=== PATIENT | female | born 1945 | race Caucasian/White ===

== ENCOUNTER → 2017-04-17 | Outpatient (CLI) | payer BC ==
[~2017-04-17] MED LIST: ALBU1AER9 INH; ASPI81TA28 PO; CLBPO15 TOP; CLX/40 PO; CLX20 PO; HYZ/10015 PO; LPT10 PO; MONT1TAB3 PO; OMEG10002; PANT40TA PO; PRMVC TOP; ROPI0.5T15 PO; ROPI1TAB PO; SYMIN160 INH; TRAM-10 PO; VERA240T21 PO
--- NOTE | 2017-04-17 15:18 | MAMMOGRAPHY REPORT ---
BILATERAL DIGITAL SCREENING MAMMOGRAM WITH CAD: 04/17/2017 CLINICAL HISTORY: Routine screening. Patient has no complaints. TECHNIQUE: Bilateral CC, MLO and left XCCL views were obtained. Current study was also evaluated wit h a Computer Aided Detection (CAD) system. COMPARISON: Comparison is made to exams dated: 04/15/2016 mammogram, 04/14/2015 mammogram, 02/19/2014 zoila mogram, 02/11/2013 mammogram, 12/30/2011 mammogram, and 10/25/2010 mammogram - [facility] ter. BREAST COMPOSITION: There are scattered areas of fibroglandular density in both breasts. FINDINGS: There are a few stable benign-appearing round and punctate microcalcifications bilaterally. No suspicious mass, architectural distortion or cluster of suspicious microcalcifications is seen. IMPRESSION: ACR BI-RADS CATEGORY 1: NEGATIVE There is no mammographic evidence of malignancy. A 1 year screening mammogram is recommended. The pa tient will receive written notification of the results. Approximately 10% of breast cancers are not detected with mammography. A negative mammographic report should not delay biopsy if a clinically suggestive mass is present. Tanvi Gastelum M.D. ay/:04/17/2017 13:50:54 Manufacturing Plant Controller: Heidi WELLS(Afshin)(Michaela)(BD), [facility] letter sent: Normal 1/2 BI-RADS Code: ACR BI-RADS Category 1: Negative
== END | disposition home or self-care (01) ==
LOC: C.MAMM 11:48
PROVIDERS: ATTEND Obstetrics & Gynecology
DX: Z12.31 Encounter for screening mammogram for malignant neoplasm of breast (principal)

== ENCOUNTER → 2017-06-26 | Outpatient (CLI) | payer BC ==
[~2017-06-26] MED LIST changes: -CLX20 PO; -HYZ/10015 PO; -MONT1TAB3 PO; -OMEG10002; -ROPI0.5T15 PO
--- NOTE | 2017-06-26 17:16 | DIAGNOSTIC IMAGING REPORT ---
CERVICAL SPINE 5 VIEWS HISTORY: CERVICALGIA COMPARISON: None. FINDINGS: The cervical spine is visualized from C1 through the superior endplate of T1. There is no fracture. 1 mm of anterolisthesis of C4 and C5. Mild disc space narrowing at C5-C6 and moderate to space narrowing at C6-C7. There are small endplate osteophytes at these levels. Moderate facet osteoarthritis within the upper cervical spine and mild facet osteoarthritis within the mid to lower cervical spine. Moderate left and mild right neural foraminal narrowing from C3 through C7. Prevertebral soft tissues and the atlantodens interval are intact. IMPRESSION: 1. Degenerative disc disease within the cervical spine as described above most pronounced within the lower cervical spine. 2. Bilateral neural foraminal narrowing as described above primarily due to the facet osteoarthritis. 3. Approximate 1 mm of anterolisthesis of C4 on C5 which is likely due to long-standing degenerative change. Electronically signed by: Willie Mueller M.D. 06/26/2017 5:15 PM Dictated Date/Time: 06/26/2017 5:12 PM
--- NOTE | 2017-06-26 17:18 | DIAGNOSTIC IMAGING REPORT ---
LUMBAR SPINE 5 VIEWS HISTORY: LUMBAR PAIN COMPARISON: None. FINDINGS: There is no fracture. No subluxation. Moderate facet degenerative changes at L3-L4, L4-L5, and L5-S1. Mild disc space narrowing at L3-L4, L4-L5, and L5-S1 with small endplate osteophytes. Moderate right and mild left hip osteoarthritis. The sacrum appears intact. Cholecystectomy. IMPRESSION: No fracture or subluxation within the lumbar spine. Degenerative changes as described above. Electronically signed by: Willie Mueller M.D. 06/26/2017 5:16 PM Dictated Date/Time: 06/26/2017 5:15 PM
== END | disposition home or self-care (01) ==
LOC: C.RAD 16:12
PROVIDERS: ATTEND Family Medicine
DX: M54.2 Cervicalgia (principal)

== ENCOUNTER → 2017-06-27 | Day surgery (SDC) | payer BC ==
[2017-06-16 09:01] VITALS: Ht 162.6 cm; Wt 99.5 kg
[~2017-06-27] VITALS: Ht 162.6 cm; Wt 99.5 kg
[~2017-06-27] MED LIST changes: +ATROPINE SULFATE 0.1 MG/ML 5ML SYR IV PRN; +BUPIVACAINE 0.5 % 5 MG/1 ML MPF 30ML VIAL ONE; +CLINDAMYCIN PHOS 150 MG/ML 2 ML VIAL IV SCH; +EpHEDrine SULFATE INJ 50 MG/ML AMP IV PRN; +FENTANYL CITRATE INJ 50 MCG/1 ML 2 ML VIAL ONE; +LACTATED RINGER'S 1000ML 1,000 ML IV SCH; +LIDOCAINE HCL 1% 20 ML VIAL ONE; +LIDOCAINE HCL 2% 2 ML VIAL (20MG/ML) ONE; +MIDAZOLAM HCL 1 MG/ML 2ML VIAL ONE; +ONDANSETRON INJ 2 MG/ML 2 ML VIAL IV PRN; +OXYCODONE/ACETAMINOPHEN 5-325 TAB PO PRN; +PROPOFOL IV EMULSION 10 MG/ML 20 ML VIAL IV ONE; +SODIUM CHLORIDE 0.9% 1000ML 1,000 ML IV SCH
--- NOTE | 2017-06-27 06:47 | History & Physical Bridge - SC ---
H&P Re-Evaluation Bridge Note: I have examined the patient, reviewed the History & Physical and in the interval since the performance of the History & Physical I have noted the following changes of clinical significance: No changes noted
--- NOTE | 2017-06-27 08:03 | [facility] Post Operative Brief Note ---
Immediate Operative Summary Operative Date Jun 27, 2017. Pre-Operative Diagnosis Positive Tinel's and Phalen's Right wWrist Painful Triggering Right Long Finger Post-Operative Diagnosis Same as pre-op Procedure(s) Performed Right Carpal Tunnel Release; Right Long Finger Trigger Finger Release Surgeon Dr. Aj Lead Assembler Surgeon(s) Ba Chu PA-C Estimated Blood Loss Zero Findings ABOVE Specimens None Anesthesia LOCAL IV SEDATION Complication(s) None Disposition
[2017-06-27 08:04] VITALS: TEMP 36.5
--- NOTE | 2017-06-27 08:07 | Discharge Instructions-SurgCtr ---
Discharge Instructions Date of Service Jun 27, 2017. Visit Reason for Visit: Right Carpal Tunnel Syndrome, Right Long Trigger F Discharge Discharge Diagnosis / Problem: SAME ABOVE Discharge Goals Goal(s): Decrease discomfort, Improve function Activity Recommendations Activity Limitations: as noted below Lifting Limitations: gradually increase as tolerated Exercise/Sports Limitations: until after follow-up appointment Shower/Bathe: keep incision dry Anesthesia . Post Anesthesia Instructions: If you have had General Anesthesia or IV Sedation: * Do not drive today. * Resume driving when surgeon permits. * Do not make important decisions or sign legal documents today. * Call surgeon for: 1. Temperature elevations greater than 101 degrees F. 2. Uncontrollable pain. 3. Excessive bleeding. 4. Persistent nausea and vomiting. 5. Medication intolerance (nausea, vomiting or rash). * For nausea and vomiting use only clear liquids such as: tea, soda, bouillon until nausea subsides, then gradually increase diet as tolerated. * If you have any concerns or questions, call your surgeon's office. If physician is unavailable and it is an emergency, call 911 or go to the nearest emergency room. . Instructions / Follow-Up Instructions / Follow-Up MEDICATIONS: * Resume previous medications unless instructed otherwise by your surgeon. * Always take pain medication on a full stomach or with food to avoid upset stomach. * Do not drink alcohol or drive while taking narcotics. * Ibuprofen or Tylenol may be taken if narcotic not needed. SPECIAL CARE INSTRUCTIONS: __ None _X_ Keep extremity elevated and iced x 48 hours; apply ice 20-30 minutes 8-10 times/day. May remove at night. __ Sling __24 hrs/day __ Remove at night __ Shoulder Immobilizer __ 24 hrs/day __ Remove at night _X_ Dressing _X_ Maintain until seen in office, may shower with plastic over site __ Remove dressings in 24-48 hours and then may shower __ Cover incisions with band-aids after showering __ Do not remove steri-strips Call physician if chills or temperature rises above 102 degrees or pain unrelieved by prescribed pain medications at . . Diet Recommendations Home Diet: resume previous diet Procedures Procedures Performed: Right Carpal Tunnel Release; Right Long Finger Trigger Finger Release Pending Studies Studies pending at discharge: no Medical Emergencies . Who to Call and When: Medical Emergencies: If at any time you feel your situation is an emergency, please call 911 immediately. . Non-Emergent Contact Non-Emergency issues call your: Primary Care Provider . . "Provider Documentation" section prepared by Ba Gregory. .
--- NOTE | 2017-06-27 08:16 | OPERATIVE REPORT ---
DATE OF OPERATION: 06/27/2017 PREOPERATIVE DIAGNOSES: 1. Right carpal tunnel syndrome. 2. Right long trigger finger. POSTOPERATIVE DIAGNOSES: Same. PROCEDURES: 1. Decompression median nerve release transverse carpal ligament, right wrist. 2. Release A1 yaw, right long finger. SURGEON: Isaiah Aj MD WHIPPED TOPPING FINISHER: Ba Gregory PA-C ANESTHESIOLOGIST: Ba Barrett MD ANESTHESIA: Local with IV sedation. DRAINS: None. COMPLICATIONS: None. CONDITION: The patient tolerated the procedure well and returned to the recovery room in apparent satisfactory condition. INDICATIONS FOR SURGERY: Susy is a 72-year-old female who has had problems with carpal tunnel complaints, numbness and tingling and triggering of the right long finger. We went over treatment options and elected to go ahead and proceed with surgery. Procedure, expected outcomes and side effects were all explained in detail. DESCRIPTION OF PROCEDURE: The patient was taken to the OR at which time she was placed supine on the operating table. The right hand was prepped and draped in the usual sterile fashion for this surgery. The anticipated incision site was infiltrated with 1% Xylocaine. A forearm tourniquet was placed on the arm and tourniquet was placed up to 250 mmHg. Incision was made vertically over the transverse carpal tunnel ligament. Dissection was done down until the palmar fascia was identified and divided with a 15-blade. The transverse carpal ligament was identified and also divided with the 15-blade and upbiting scissors. A small portion of the forearm fascia was divided also. Electrocautery was used to control any areas of bleeding. The nerve was freed up from any scar tissue and adequately decompressed. The wound then was copiously irrigated. It was closed then with interrupted 4-0 nylon sutures. Marcaine without Epinephrine was placed in the skin edges. It was closed in a layered fashion. We placed a sterile dressing of Xeroform, 4 x 4, volar splint, and an Pawan bandage. We then made a transverse incision over the A1 yaw, dissected down under the right long finger and identified the yaw. We divided it with a 15 blade and tenotomy scissors. The wound was copiously irrigated, closed with 4-0 nylon suture and then Marcaine without epinephrine was placed in the skin edges and it was then incorporated into the dressing for the carpal tunnel and returned to the recovery room in apparent satisfactory condition. DISPOSITION: The patient was returned back to the recovery room in apparent satisfactory condition. I attest to the content of the Intraoperative Record and any orders documented therein. Any exception s are noted below.
--- NOTE | 2017-06-27 08:17 | Anesthesia Progress Nt - [facility] ---
Anesthesia Post Op Note Date & Time Jun 27, 2017 at 08:17 Vital Signs Pain Intensity: 0 Vital Signs Past 12 Hours Date Time Temp Pulse Resp B/P (MAP) Pulse Ox O2 Delivery O2 Flow Rate FiO2 06/27/17 08:04 36.5 64 16 163/82 (109) 97 Room Air 06/27/17 06:30 36.4 67 18 171/94 (119) 94 Room Air Notes Mental Status: alert / awake / arousable, participated in evaluation Pt Amnestic to Procedure: Yes Nausea / Vomiting: adequately controlled Pain: adequately controlled Airway Patency, RR, SpO2: stable & adequate BP & HR: stable & adequate Hydration State: stable & adequate Anesthetic Complications: no major complications apparent
[2017-06-27 08:32] VITALS: BP 155/71; PULSE 57; O2SAT 96
== END | disposition home or self-care (01) ==
LOC: X.SURG 06:24
PROVIDERS: ATTEND Orthopaedic Surgery
DX: G56.01 Carpal tunnel syndrome, right upper limb (principal); M65.331 Trigger finger, right middle finger; K21.9 Gastro-esophageal reflux disease without esophagitis; E78.00 Pure hypercholesterolemia, unspecified; E66.9 Obesity, unspecified; M19.90 Unspecified osteoarthritis, unspecified site; I10 Essential (primary) hypertension; J45.909 Unspecified asthma, uncomplicated; Z98.49 Cataract extraction status, unspecified eye; Z90.49 Acquired absence of other specified parts of digestive tract

== ENCOUNTER 2019-08-01 09:00 | Inpatient (IN) ==
--- NOTE | 2019-07-24 12:53 | History & Physical Report ---
Date of Service July 24, 2019 Assessment & Plan (1) Primary localized osteoarthrosis of right hip: DIAGNOSES: Right hip osteoarthritis. PROCEDURE: Right total hip arthroplasty. PLAN: The patient is scheduled to undergo this procedure at the [facility] as an inpatient on 08/01/2019. Risks and complications of the procedure such as infection, bleeding, pain, scarring, nerve and blood vessel damage, weakness, wound problems, stiffness, incomplete relief of symptoms, hardware failure, hardware loosening, wear, fracture, tendon or ligament injury, dislocation, leg length inequality, blood clots, embolism, heart attack, stroke and were explained to patient by Dr. Hollingsworth at her visit on July 19. Informed consent to perform the procedure was obtained at that time. We will also need to obtain a preoperative EKG, CBC with differential, complete metabolic panel, PT, INR, blood type and screen, urinalysis, urine culture, hemoglobin A1c and a nasal culture for MRSA along with medical clearance from the patient's primary care provider, Dr. Heidi Delacruz. The patient states she will obtain this necessary testing on July 26, prior to her appointment with anesthesia for preop medical clearance. The patient will be scheduled for her postoperative followup with myself on August 14 at 9:30 a.m. At that appointment, I advised her that we would provide her with an order for outpatient physical therapy with rehab protocol. In the meantime, she will do 2 weeks of in-home therapy after discussing with case management postoperatively. She states she will purchase a walker as well as a hip kit prior to the procedure. She states she also plans on purchasing a shower seat. I provided the patient with information about antibiotic use prior to dental procedures after joint replacement therapy. I also provided her with opportunities to go to the lectures provided by [facility] in regards to joint replacement therapy. We discussed discharge planning, we have given her a packet. She states she does not need a handicap placard because they already have one for her vehicle. I advised her that she will be discharged with medications for pain control and inflammation relief and that we will increase her daily aspirin to twice daily for 30 days postoperatively for prevention of blood clots. The patient and her verbalized understanding of all information provided during today's visit, thanked us for the care they received and states if they have questions or concerns that should arise prior to the procedure date they will contact the clinic accordingly. History of Present Illness Chief Complaint: CHIEF COMPLAINT: Right hip pain. Primary Care Provider: Heidi Delacruz MD HISTORY OF PRESENT ILLNESS: This 74-year-old female presents to the clinic today for preoperative history and physical. The patient complains of a 1+ year history of severe right hip pain with limited range of motion. The patient states she has been trying to lose weight, but has been unable to do so due to limitations presented by the pain that she experiences. The patient has been using hydrocodone for breakthrough pain that is provided by her PCP. She recently returned from a trip to [place] and states that she had great difficulty ambulating during her time and felt that the pain was debilitating in nature, requiring her to use a wheelchair during most of her visit. The patient is recommending to undergo a right total hip arthroplasty at our soonest availability. PAST SURGICAL HISTORY: Right carpal tunnel release, shave biopsy and cauterization of skin, colonoscopy, bronchial brushing sample, bronchial wash and transbronchial lung biopsy, cataract surgery, cholecystectomy, fistulectomy of the rectum, tummy tuck, and tubal ligation. PAST MEDICAL HISTORY: Asthma, hypertension, benign neoplasm of the colon, benign neoplasm of the thyroid, bilateral leg weakness, bradycardia, cervicalgia, depression, diverticulitis, gastroesophageal reflux, hiatal hernia, herpes labialis, history of basal cell cancer, history of squamous cell carcinoma, impaired fasting glucose, insomnia, lichen sclerosus, hyperlipidemia, recurrent urinary tract infection, restless leg syndrome, tubular adenoma, urinary incontinence and obesity. FAMILY HISTORY: Positive for colon cancer, drug dependence, heart attack, heart failure, hypertension and stroke. SOCIAL HISTORY: The patient states she consumes 2 alcoholic beverages per day, but denies tobacco or illicit drug use. ALLERGIES: THE PATIENT HAS MEDICATION ALLERGIES TO PENICILLIN, PROVENTIL, SULFA DRUGS, AND ZESTRIL. CURRENT MEDICATIONS: Acetaminophen/hydrocodone 325 mg/5 mg oral tablet 1 tab every 12 hours as needed for pain, low-dose aspirin 81 mg daily, atorvastatin 10 mg oral tablet daily, citalopram 40 mg oral tablet 1 tab daily, clobetasol topical 0.05% ointment 2 times weekly, clonazepam 0.5 mg oral tablet 1 tablet at bedtime, cranberry oral capsule, unknown dosage daily, pantoprazole 40 mg oral delayed release tablet 1 tab twice daily, Premarin vaginal 0.625 mg per gram cream with applicator, 1 application 1-3 times per week, ropinirole 1 mg oral tablet 1 tablet each morning and each night, verapamil 180 mg/12 hour oral tablet extended release 1 tab every 12 hours. T Allergies Allergy/AdvReac Type Severity Reaction Status Date / Time Penicillins Allergy Intermediate ITCHY;LIPS Verified 05/17/19 15:38 TINGLE Sulfa (Sulfonamide Allergy Intermediate ITCHY; Verified 05/17/19 15:38 Antibiotics) LIPS TINGLE Home Medications Home Medications Medication Instructions Recorded Confirmed Type aspirin 81 mg PO DAILY 03/07/19 05/17/19 History atorvastatin 10 mg PO DAILY 03/07/19 05/17/19 History citalopram 40 mg PO DAILY 03/07/19 05/17/19 History cranberry 500 mg PO DAILY 03/07/19 05/17/19 History ropinirole 1 mg PO BID 03/07/19 05/17/19 History tramadol 50 mg PO Q8 PRN 03/07/19 05/17/19 History verapamil 180 mg PO BID 03/07/19 05/17/19 History clobetasol 0.05 % topical ointment See Rx Instructions TOP .COMPLEX 05/13/19 05/13/19 Rx #60 gm conjugated estrogens 0.625 mg/gram 0.625 mg PV .COMPLEX #30 gm 05/13/19 05/13/19 Rx vaginal cream ferrous sulfate PO DAILY 05/17/19 05/17/19 History Past Med/Surg History Medical History Benign colonic polyp Depression Gastroesophageal reflux disease without esophagitis Hypercholesterolemia Hypertension Intrinsic asthma Lichen sclerosus et atrophicus Nontoxic multinodular goiter Postmenopausal atrophic vaginitis Restless legs syndrome Stress incontinence in female Arthritis GERD (gastroesophageal reflux disease) Immunoglobulin deficiency Menopause Surgical History H/O abdominoplasty History of cataract surgery Hx of cholecystectomy Hx of hemorrhoidectomy Hx of tubal ligation Family History Mother Myocardial infarction Aunt Breast cancer Maternal Father Colorectal cancer Brother Colorectal cancer Social History Feels Safe at Home: Yes Smoking Status: Former smoker Tobacco Type: cigarettes ; Age Started Using Tobacco: 18 ; Age Quit Using Tobacco: 22 ; packs per day: 1 ; Review of Systems All systems reviewed & are unremarkable except as noted in HPI & below Physical Exam Physical Exam: PHYSICAL EXAMINATION: Skin: The patient's skin is normal in appearance. No open skin lesions or discharge. Eyes: Pupils are equal and reactive to light and accommodating. Extraocular movements are intact. Throat: Posterior pharynx is clear with absence of edema, erythema or exudate. Ca rdiovascular exam: The patient has a regular rate and rhythm with no murmurs or gallops appreciated. Lungs: Auscultation of lung law reveals clear breath sounds throughout, no wheezing, rales or rhonchi. Abdomen is obese, nondistended, nontender with normoactive bowel sounds. Extremities: Right hip: The patient has a positive log roll test, positive Stinchfield test, positive straight leg raise test. She is unable to perform AGUSTÍN maneuver due to pain she experiences in her groin and posterior hip. She has tenderness to palpation of the anterior groin and posterior hip. There is a palpable crepitation with range of motion. She experiences referred pain to the groin with passive abduction and adduction as well as with passive light internal and external rotation of the hip. Flexion is limited to 90 degrees. The patient is neurovascularly intact in the right lower extremity. Neurological exam: Cranial nerves 2-12 are intact. No motor or sensory deficit. Psychological/ general exam: The patient is alert and oriented x3 with proper grooming and hygiene. Code Status & VTE Plan VTE Prophylaxis Plan VTE Prophylaxis will be ordered: Yes
--- NOTE | 2019-07-25 16:28 | PAT Medication Instructions ---
Medication Instructions Date of Service July 25, 2019 Home Medications Medication Instructions Recorded clobetasol 0.05 % topical ointment See Rx Instructions TOP .COMPLEX 05/13/19 #60 gm conjugated estrogens 0.625 mg/gram 0.625 mg PV .COMPLEX #30 gm 05/13/19 vaginal cream aspirin 81 mg PO QPM atorvastatin 10 mg PO QPM citalopram 40 mg PO QAM cranberry 500 mg PO QAM verapamil 180 mg PO BID clobetasol 0.05 % topical ointment See Rx Instructions TOP .COMPLEX conjugated estrogens 0.625 mg/gram vaginal cream 0.625 mg PV .COMPLEX ferrous sulfate 325 mg PO QAM pantoprazole 40 mg PO QAM ropinirole 1 mg PO 1500 ropinirole 1 mg PO HS ASK your prescriber and surgeon conjugated estrogens 0.625 mg/gram vaginal cream 0.625 mg PV .COMPLEX STOP taking 2 weeks before surgery (or as soon as possible if surgery is within 2 weeks) cranberry 500 mg PO QAM STOP taking 24 hours before surgery clobetasol 0.05 % topical ointment See Rx Instructions TOP .COMPLEX ropinirole 1 mg PO 1500 ropinirole 1 mg PO HS DO NOT take the morning of surgery ferrous sulfate 325 mg PO QAM Take morning of surgery With a small sip of water, OTHERWISE NOTHING TO EAT OR DRINK AFTER MIDNIGHT: citalopram 40 mg PO QAM verapamil 180 mg PO BID pantoprazole 40 mg PO QAM Take evening before surgery aspirin 81 mg PO QPM atorvastatin 10 mg PO QPM verapamil 180 mg PO BID Other Notes If you have any questions please call us at [phone] or [phone] or [phone] or [phone]
--- NOTE | 2019-07-26 08:38 | Anesthesiology Consultation ---
Date of Service July 26, 2019 Assessment & Plan (1) Encounter for pre-operative examination: - Awaiting review preop testing (labs, EKG). - Awaiting surgeon-ordered PCP preop evaluation (Dr. Heidi Beauchamp). Chart Review Chart Review: Patient seen in Pre Admission Testing Teaching & Discussion Pre-Anesthesia Teaching/Discussion Notes: Instructed NPO after midnight before surgery,except medications with 15 cc of water. Medication instructions provided according to the PAT guidelines. History Surgery Operation Date: 08/01/19 11:55 Proposed Procedures p Right Total Hip Arthroplasty - Isaiah Hollingsworth MD Height/Weight Height: 5 ft 4 in Weight: 89.7 kg Allergies Allergy/AdvReac Type Severity Reaction Status Date / Time Penicillins Allergy Intermediate ITCHY;LIPS Verified 07/25/19 07:06 TINGLE Sulfa (Sulfonamide Allergy Intermediate ITCHY; Verified 07/25/19 07:06 Antibiotics) LIPS TINGLE Medications Home Medications Medication Instructions Recorded Confirmed Last Taken aspirin 81 mg PO QPM 03/07/19 07/25/19 Unknown atorvastatin 10 mg PO QPM 03/07/19 07/25/19 Unknown citalopram 40 mg PO QAM 03/07/19 07/25/19 Unknown cranberry 500 mg PO QAM 03/07/19 07/25/19 Unknown verapamil 180 mg PO BID 03/07/19 07/25/19 Unknown clobetasol 0.05 % topical ointment See Rx Instructions TOP .COMPLEX 05/13/19 07/25/19 Unknown #60 gm conjugated estrogens 0.625 mg/gram 0.625 mg PV .COMPLEX #30 gm 05/13/19 07/25/19 Unknown vaginal cream ferrous sulfate 325 mg PO QAM 05/17/19 07/25/19 Unknown pantoprazole 40 mg PO QAM 07/25/19 07/25/19 Unknown ropinirole 1 mg PO 1500 07/25/19 07/25/19 Unknown ropinirole 1 mg PO HS 07/25/19 07/25/19 Unknown Past Medical History Medical History Depression Hypercholesterolemia Hypertension Intrinsic asthma stable; no recent issues Restless legs syndrome Stress incontinence in female Arthritis GERD (gastroesophageal reflux disease) controlled Obesity Thyroid nodule "benign" Exercise / Class Metabolic Activity III < 4 Walking/Shop/Light housework (uses cane PRN) Past Family History Family History Mother Myocardial infarction Aunt Breast cancer Maternal Father Colorectal cancer Brother Colorectal cancer Sister Family history of diabetes mellitus Past Surgical History Surgical History H/O abdominoplasty History of bronchoscopy with brushings d/t chronic cough (r/t aman inhibitor treatment) History of carpal tunnel release right History of cataract surgery bilateral History of colonoscopy History of esophagogastroduodenoscopy (EGD) Hx of cholecystectomy Hx of hemorrhoidectomy Hx of tubal ligation S/P thyroid biopsy Past Anesthesia History No Hx of Anesthesia Complications and No Family Hx of Anesthesia Complications History of PONV No Hx of PONV and No Hx of Motion Sickness Social History Smoking Status: Former smoker tobacco type: cigarettes Do You Dip or Chew Tobacco: No Smoking End Date: Quit 50+ years Hx Alcohol Use: Yes Alcohol type: beer, wine and hard liquor alcohol intake frequency: 0-2 drinks per day (2 drinks/day (beer/whiskey)) Hx Substance Use: No substance use type: does not use Review of Systems Reflux controlled. Patient denies chest pain, shortness of breath, cough, wheezing, palpitations. Physical Exam Vital Signs VITALS BP 154/80 P 53 TEMP 97.6 SP02 96%RA RESP 18 PHYSICAL Full neck and c-spine range of motion. Full TMJ range of motion. TMD 3.5 finger breaths Mallampati Score 2 Dentition: intact Lungs: clear throughout to auscultation Cardiac: regular rate and rhythm, no murmurs noted Spine: normal Carotid arteries: negative bruit Extremities: no edema Testing Chest X-Ray Date: 10/02/18 Cardiac silhouette is enlarged, unchanged. Calcification of the thoracic aortic arch. No pneumothorax, pleural effusion or overt pulmonary edema. Eventration of the right hemidiaphragm is unchanged. No acute process. Cervical Spine Date: 03/07/19 Mild to moderate degenerative changes within the cervical spine, unchanged. Stable prominence of the prevertebral soft tissues within the upper cervical spine. No fractures.
[2019-07-26 09:57] LABS: Basophils # (auto) 0.02 K/uL (0-0.2); Basophils % (auto) 0.4 %; Eosinophils # (auto) 0.11 K/uL (0-0.5); Eosinophils % (auto) 2.3 %; Hematocrit (blood only) 44.7 % (37-47); Hemoglobin 14.3 g/dL (12.0-16.0); Immature Granulocytes # (auto) 0.02 K/uL (0.00-0.02); Immature Granulocytes % (auto) 0.4 %; Lymphocytes # (auto) 1.21 K/uL (1.2-3.4); Lymphocytes % (auto) 25.7 %; Mean Platelet Volume 9.9 fL (7.4-10.4); Monocytes # (auto) 0.61 K/uL (0.11-0.59); Neutrophils # (auto) 2.74 K/uL (1.4-6.5); Neutrophils % (auto) 58.2 %; Platelet Count 258 K/uL (130-400); RDW Coefficient of Variation 13.6 % (11.5-14.5); RDW Standard Deviation 48.3 fL (36.4-46.3); Red Blood Count 4.61 M/uL (4.2-5.4); White Blood Count 4.71 K/uL (4.8-10.8)
[2019-07-26 10:00] LABS: Appearance Urine Slightly Cloudy (Clear); Blood Urine Negative (Negative); Color Urine Yellow; Glucose Urine UA Negative (Negative); Ketones Urine 1+ (Negative); Leukocyte Esterase Urine Negative (Negative); Nitrite Urine Negative (Negative); Protein Urine Negative (Negative); Specific Gravity Urine 1.025 (1.000-1.030); Urobilinogen Urine Negative (Negative); pH Urine 5.5 (4.5-7.5)
[2019-07-26 10:01] LABS: Albumin Level 3.5 gm/dl (3.4-5.0); BUN Creatinine Ratio 18.3 (10-20); Calcium 9.8 mg/dl (8.5-10.1); Creatinine Clr Calc Pharmacy 75.5 ml/min; Est GFR (African American) 95.4; Est GFR (Non-African American) 82.3; Potassium 4.3 mmol/L (3.5-5.1)
[2019-07-26 10:04] LABS: Bilirubin,Total 0.5 mg/dl (0.2-1); Globulin 3.4 gm/dl (2.5-4.0); Total Protein 6.9 gm/dl (6.4-8.2)
[2019-07-26 10:07] LABS: Partial Thromboplastin Time 26.7 Seconds (21.0-31.0); Prothrombin Time 10.4 Seconds (9.0-12.0)
[2019-07-26 10:08] LABS: Bilirubin Urine Negative (Negative); Ictotest Urine Negative (Negative)
[2019-07-26 10:32] LABS: Estimated Average Glucose 111 mg/dl; Hemoglobin A1C 5.5 % (4.5-5.6)
[~2019-08-01 09:00] MED LIST changes: +ACETAMINOPHEN 500 MG TAB PO SCH; -ALBU1AER9 INH; -ASPI81TA28 PO; -ATROPINE SULFATE 0.1 MG/ML 5ML SYR IV PRN; -BUPIVACAINE 0.5 % 5 MG/1 ML MPF 30ML VIAL ONE; +BUPIVACAINE 0.5 % 5 MG/1 ML PF 10ML VIAL ONE; +CEFAZOLIN 2000MG 2,000 MG/15 ML SYR IV SCH; -CLBPO15 TOP; -CLINDAMYCIN PHOS 150 MG/ML 2 ML VIAL IV SCH; -CLX/40 PO; -EpHEDrine SULFATE INJ 50 MG/ML AMP IV PRN; +FAMOTIDINE 20 MG TAB PO SCH; -FENTANYL CITRATE INJ 50 MCG/1 ML 2 ML VIAL ONE; -LACTATED RINGER'S 1000ML 1,000 ML IV SCH; -LIDOCAINE HCL 1% 20 ML VIAL ONE; -LIDOCAINE HCL 2% 2 ML VIAL (20MG/ML) ONE; -LPT10 PO; +LR 500ML BOLUS, THEN 15ML/HR IV SCH; +LR 60ML/HR IV SCH; +METOCLOPRAMIDE HCL 10 MG TABLET PO SCH; -MIDAZOLAM HCL 1 MG/ML 2ML VIAL ONE; -ONDANSETRON INJ 2 MG/ML 2 ML VIAL IV PRN; -OXYCODONE/ACETAMINOPHEN 5-325 TAB PO PRN; -PANT40TA PO; -PRMVC TOP; -PROPOFOL IV EMULSION 10 MG/ML 20 ML VIAL IV ONE; -ROPI1TAB PO; +SCOPOLAMINE 1.5 MG TDSY TD SCH; -SODIUM CHLORIDE 0.9% 1000ML 1,000 ML IV SCH; -SYMIN160 INH; -TRAM-10 PO; +TRAMADOL HCL 50 MG TABLET PO SCH; +TRANEXAMIC ACID 1,000 MG **IV Intra-op IV SCH; +TRANEXAMIC ACID 1,000 MG **IV Pre-op IV SCH; -VERA240T21 PO; +dexAMETHasone 4 MG TAB PO SCH
[2019-08-01] MEDS ORDERED: fentaNYL citrate 100 MCG/2 ML VIAL ONE (10:20)
[2019-08-01] MEDS ORDERED: MIDAZOLAM HCL 1 MG/ML 2ML VIAL ONE (10:20)
[2019-08-01] MEDS ORDERED: ORTHO JOINT ANESTHETIC ONE (11:09)
--- NOTE | 2019-08-01 11:09 | History & Physical Bridge Note ---
Date of Service August 01, 2019 History & Physical Bridge Note I have examined the patient, reviewed the History & Physical and in the interval since the performance of the History & Physical I have noted the following changes of clinical significance: no changes noted
[2019-08-01] MEDS ORDERED: PROPOFOL IV EMULSION 10 MG/ML 20 ML VIAL IV ONE ×2 (12:01→12:54)
[2019-08-01] MEDS ORDERED: LIDOCAINE HCL 2% 2 ML VIAL/AMP(20MG/ML) INFIL ONE (12:01)
[2019-08-01] MEDS ORDERED: ePHEDrine sulfate 50 MG/ML SYR ONE (12:01)
[2019-08-01] MEDS ORDERED: ONDANSETRON INJ 2 MG/ML 2 ML VIAL ONE (12:01)
[2019-08-01] MEDS: ROPIVACAINE 0.5% HCL/PF 150 MG, BUPIVACAINE 0.5% MPF 30 ML, EPINEPHrine 0.15 MG, Ketoro... INFIL SCH (12:44)
--- NOTE | 2019-08-01 13:11 | Post Operative Brief Note ---
Immediate Post Op Note v1 Date of Surgery August 01, 2019 Pre & Post Diagnosis Operation Date: 08/01/19 11:35 Pre-Op Diagnosis: Right Hip Osteoarthritis Post-Op Diagnosis: Right Hip Osteoarthritis I identified the patient and participated in the time-out.: Yes Procedure Operation Date: 08/01/19 11:35 Actual Procedures p Right Total Hip Arthroplasty, Uncemented(Right) - Isaiah Hollingsworth MD Surgeon Isaiah Hollingsworth MD Concrete Form Setter And Finisher ANAND Franks PA-C Estimated Blood Loss 100 Findings Consistent with Post-Op Diagnosis Fluids 700 Anesthesia Type Spinal MAC Complications none Disposition Accompanied Patient To Recovery: No Disposition: Recovery Room
--- NOTE | 2019-08-01 13:30 | Operative Report ---
Post Operative Report Pre & Post Diagnosis Operation Date: 08/01/19 11:35 Pre-Op Diagnosis: Right Hip Osteoarthritis Post-Op Diagnosis: Right Hip Osteoarthritis I identified the patient and participated in the time-out.: Yes Procedure Operation Date: 08/01/19 11:35 Actual Procedures p Right Total Hip Arthroplasty, Uncemented(Right) - Isaiah Hollingsworth MD Surgeon Isaiah Hollingsworth MD Rn Visiting ANAND Franks PA-C Estimated Blood Loss 100 Findings Consistent with Post-Op Diagnosis Specimens Right femoral head Complications none Disposition Accompanied Patient To Recovery: Yes Disposition: Recovery Room Description of Procedure I was present during the entire case assisting with wound closure and dressing application. Please see Dr. Hollingsworth procedure note for specifics of the case. I attest to the content of the Intraoperative Record and any orders documented therein. Any exceptions are noted below.
[2019-08-01] MEDS ORDERED: ALUMINUM/MAGNESIUM SUSP 30 ML UDC PO PRN (13:38)
[2019-08-01] MEDS ORDERED: HYDROmorphone INJ 0.5 MG/0.5 ML SYR IV PRN (13:38)
[2019-08-01] MEDS ORDERED: OXYCODONE HCL IR 5 MG TAB (IMMEDIATE RELEASE) PO PRN (13:38)
[2019-08-01] MEDS ORDERED: bisacodyL 10 MG SUPP PR PRN (13:38)
[2019-08-01] MEDS ORDERED: DiphenhydrAMINE HCL 50 MG/ML VIAL IV PRN (13:38)
[2019-08-01] MEDS ORDERED: TRAMADOL HCL 50 MG TABLET PO PRN (13:38)
[2019-08-01] MEDS ORDERED: NALOXONE HCL 0.4 MG/1 ML VIAL/CARP IV PRN (13:38)
[2019-08-01] MEDS ORDERED: METOCLOPRAMIDE HCL INJ 5 MG/ML 2 ML VIAL IV PRN (13:38)
[2019-08-01] MEDS ORDERED: MAGNESIUM HYDROXIDE SUSP 30 ML UDC PO PRN (13:38)
[2019-08-01] MEDS ORDERED: ONDANSETRON INJ 2 MG/ML 2 ML VIAL IV PRN (13:38)
--- NOTE | 2019-08-01 13:40 | Operative Report ---
DATE OF OPERATION: 08/01/2019 PREOPERATIVE DIAGNOSES: Right hip osteoarthritis. POSTOPERATIVE DIAGNOSES: Right hip osteoarthritis. OPERATION PERFORMED: Right total hip arthroplasty. SURGEON: Isaiah Hollingsworth MD. MAGAZINE DESIGNER: Ale Franks PA-C. ESTIMATED BLOOD LOSS: 100 mL. INTRAVENOUS FLUIDS: 700 mL of crystalloid. SPECIMENS: Femoral head. COMPLICATIONS: None. IMPLANTS: 1. DePuy [place] Gription acetabular shell sector cup 50 mm outer diameter. 2. 6.5 x 40 mm cancellous bone screw. 3. [place] Ultrex polyethylene liner neutral with 50 mm outer diameter and 32 mm inner diameter. 4. DePuy [place] size 4 high-offset femoral stem. 5. DePuy metal femoral head 32 mm diameter with a +1.5 offset. INDICATIONS: Ms. Gardner is a 74-year-old female with right hip osteoarthritis that has been refractory to conservative management. She has lost weight to get her BMI below 35. X-rays show complete joint space loss, subchondral sclerosis and cyst formation. I had a long discussion with her about the risks and benefits of surgery, alternatives to surgery and expected outcomes. After reviewing all these, she elected to proceed with surgery. All questions were answered. Informed consent was signed. OPERATIVE FINDINGS: The patient had degenerative osteoarthritis findings of the hip. A metal on polyethylene bearing total hip arthroplasty was performed through a posterior approach. DESCRIPTION OF THE OPERATION: The patient was identified in the preoperative holding area where her surgical site was marked. She was given a spinal anesthetic and brought back to the main operating room where she was placed on the operating room table and moved in the lateral decubitus position. Axillary roll was placed. Stulberg positioner was situated. All bony prominences were padded. Perioperative antibiotics and tranexamic acid were administered. She was prepped and draped in the normal sterile fashion. Prior to incision, a multidisciplinary timeout was called. All in the room were in agreement. I began by making a 16 cm incision for a posterior approach to the hip. The subcutaneous tissues were incised in line with the incision. Fascia was incised in line with the incision. A Charnley bow was placed. Trochanteric bursa was excised. Piriformis and short external rotators were dissected off the posterior aspect of the hip capsule. A box cut was made in the hip capsule. The femoral head was dislocated. The neck cut was made at 6 mm above the lesser trochanter, which was our preoperative template. We then exposed the acetabulum. The labrum was sharply excised. The contents of the cotyloid fossa were removed with a large black-handled curette. We then began reaming with a size 42 reamer. We then sequentially reamed her up to a size 50 cup. This gave us excellent cancellous bleeding bone circumferentially. We then irrigated out the acetabulum and opened up the size 50 acetabular shell sector cup. This was impacted into position with 45 degrees of lateral opening and 25 degrees of anteversion. A single cancellous bone screw was placed up into the ilium with an excellent bite. The polyethylene liner for a 32 mm femoral head was then impacted into the acetabular shell. The locking mechanism was checked to ensure that it had engaged, which it had. Next, the femoral neck was exposed. Lateral neck was removed with a box osteotome. The intramedullary guide was used followed by the lateralizing reamer. We then reamed her up to a size 3, which was our preoperative template. We then broached her up to a size 3. However, this had poor torsional stability. I therefore elected to upsize her to a size 4. We re-reamed the intramedullary canal and got her up to a size 4 without difficulty. We then removed lateral bone with a rat tail. The 4 broach was used and impacted down into position. Excellent torsional stability was achieved. We then began trialing. We used a high offset neck, which was our preoperative template with the +1.5 head. This was easily reduced. Her leg lengths were symmetric. She had a stable shuck test. She was stable in the extension and external rotation position. She was stable in the sleeper position and at 90 degrees of hip flexion, she can be internally rotated 50 degrees before leaving out of the cup. I was very happy with the stability exam. Therefore, the femoral trial was removed. The femoral canal was irrigated and dried. The real size 4 high offset stem was opened up and was impacted down into position. It sat at the same level of the broach. Therefore, we opened up a 32 mm diameter femoral head with a +1 offset. This was impacted onto the trunnion, which had been cleaned and dried. The wound was then irrigated out with copious amounts of dilute Betadine solution. This was then irrigated out. The periarticular injection cocktail was placed. We then repaired the piriformis and short external rotators as well as the posterior hip capsule through bone tunnels in the posterior aspect of the greater trochanter. This was with #2 Vicryl. The fascia was run with a looped #1 PDS. Subcutaneous fat was closed with #1 PDS in running fashion. Deep dermis was closed with 2-0 Vicryl. The skin was closed with a ZipLine. Sterile dressings were applied. The patient was carefully rolled supine, placed in an abduction pillow and transferred to the recovery room in stable condition. Of note, we did check her leg lengths when she was in supine and they were symmetric. POSTOPERATIVE COURSE: The patient will be admitted overnight to the hospital for pain control and monitoring. She will be weightbearing as tolerated with posterior hip precautions. She will be on aspirin for DVT prophylaxis. I attest to the content of the Intraoperative Record and any orders documented therein. Any exceptions are noted below. PARKER
[2019-08-01] MEDS ORDERED: PREMARIN VAG CRM 14 APPLN/30 GM TUBE PV SCH (13:45)
[2019-08-01] MEDS ORDERED: SODIUM CHLORIDE 0.9% 1000ML 1,000 ML IV SCH (13:45)
--- NOTE | 2019-08-01 13:46 | Anesthesiology Progress Note ---
Date of Service August 01, 2019 Anesthesia Post Procedure Vital Signs Vital Signs: Temp Pulse Pulse Resp BP BP Pulse Ox 08/01/19 13:40 65 17 128/69 100 08/01/19 13:30 66 12 126/75 97 08/01/19 13:24 36.3 C L 68 17 123/63 96 08/01/19 09:33 36.6 C 70 18 182/90 H 94 Pain Intensity Right Hip: Pain Intensity: 2 Transfer of Care Handoff Completed per policy Notes Mental Status: alert / awake / arousable Patient Amnestic to Procedure: Yes Nausea / Vomiting: adequately controlled Pain: adequately controlled Airway Patency, RR, SpO2: stable & adequate BP & HR: stable & adequate Hydration State: stable & adequate Neuraxial Anesthesia: was administered and sensory block is resolving Anesthetic Complications: no major complications apparent and Pt Satisfied with anesthetic care
--- NOTE | 2019-08-01 14:09 | XRay Report ---
XR hip 1V RT w pelvis CLINICAL HISTORY: 74 years-old Female presenting with IN PACU - A/P PELVIS and LATERAL HIP . TECHNIQUE: Single frontal view of the pelvis and and crosstable lateral view of the right hip were ob tained. COMPARISON: 07/23/2019. FINDINGS: There has been interval postsurgical changes of total right hip arthroplasty. Expected soft tissue em physema. No malalignment. No periprosthetic fracture or lucency. The remainder of the pelvis is intac t. Advanced degenerative changes of the pubic symphysis noted. Moderate degenerative changes of the l eft hip with mild joint space loss and moderate osteophytosis. Degenerative changes of the lower lumb ar spine. Arcuate lines of the sacrum grossly intact. IMPRESSION: 1. Expected postsurgical appearance status post total right hip arthroplasty. 2. Moderate osteoarthrosis of the left hip. Electronically signed by: Isaiah Zayas M.D. 08/01/2019 2:08 PM
[2019-08-01] MEDS ORDERED: CLOBETASOL PROPIONATE 0.05% OINT 15 GM TUBE EXT PRN (14:33)
[2019-08-01] MEDS ORDERED: ROPINIROLE HCL 1 MG TABLET PO SCH ×2 (15:00→21:00)
[2019-08-01] MEDS: KETOROLAC TROMETHAMINE 15 MG/ML VIAL IV SCH ×2 (15:49→20:46)
[2019-08-01] MEDS: CHECK SCOPOLAMINE PATCH PLACEMENT SCH ×2 (15:49→23:27)
[2019-08-01] MEDS: CEFAZOLIN 2000MG 2,000 MG/15 ML SYR IV SCH ×2 (18:18→19:02)
[2019-08-01] MEDS: ACETAMINOPHEN 500 MG TAB PO SCH (19:03)
[2019-08-01] MEDS ORDERED: TRANEXAMIC ACID 1,000 MG in 0.9 % SODIUM CHLORIDE 100 ML IV SCH (19:38)
[2019-08-01] MEDS: DOCUSATE SODIUM 100 MG CAP PO SCH (20:47)
[2019-08-01] MEDS: VERAPAMIL HCL 180 MG TABCR PO SCH (20:47)
[2019-08-01] MEDS ORDERED: ATORVASTATIN 10 MG TAB PO SCH (21:00)
[2019-08-01] MEDS ORDERED: SENNA 8.6 MG TAB PO SCH (21:00)
--- NOTE | 2019-08-02 00:16 | Family Medicine Consultation ---
Date of Consultation August 02, 2019 Assessment & Plan (1) Hypertension: 74-year-old female postop day 0 from right total hip arthroplasty, hospitalist service consulted for elevated blood pressures overnight. Assessment: Elevated blood pressure without evidence of hypertensive urgency or emergency -Etiology likely multifactorial given history of chronic hypertension, history of adverse effect of NSAIDs on blood pressures, situational issues like perioperative setting, status post Decadron dosing, pain, restless leg and sleeplessness. Plan: -I have discontinued any further Toradol given that NSAIDs have increased her blood pressures in the past and this may be contributing. -Recommend consider abstaining from further steroids if possible however will defer to surgical management. -Recommend continue current pain regimen, pain appears to be adequately controlled and certainly patient's blood pressures could handle further opioids if necessary. -Morning CBC BMP to rule out any end organ damage which is very unlikely. -Patient does complain of restlessness, which may be contributory. Recommend a sleep aid Ambien if patient desires. -Continue to follow blood pressures--if symptoms of hypertensive urgency like headache, blurred vision, chest pain, difficulty breathing, presyncope -- could consider hydralazine as needed. Will follow. FEN/GI: Recommend heart healthy diet, order placed. Continue home pantoprazole. DVT ppx: Patient is currently ordered SCDs. Defer to orthopedic service. CODE STATUS: Full code as discussed with the patient. DISPO: MedSurg (2) Gastroesophageal reflux disease without esophagitis: No acute issues. Continue home pantoprazole. (3) Primary localized osteoarthrosis of right hip: Status post right hip arthroplasty as above. (4) Depression: Continue home citalopram 40 mg every morning. (5) Hypercholesterolemia: Continue home statin. (6) Restless legs syndrome: Currently exacerbated per the patient. Continue home iron and ropinirole. Supervising Physician Co-Signing Physician Notes I have seen this patient, and supervised the medical residents activity, and agree with the consult note unless otherwise as noted. Elevated blood pressure- Agree with holding toradol and all NSAIDs. Avoid steroids if noted to have increased blood pressure as well. Hydralazine 10mg IV q4h prn SBP > 160. Continue with good pain control. Agree with other notations as noted. History of Present Illness Reason for Consultation: Hypertension management Requesting Physician: Dr. Soto Attending Physician: Isaiah Hollingsworth MD History of Present Illness This is a 74-year-old female with history of right hip osteoarthritis status post total right hip arthroplasty postop day 0, hypertension, GERD, depression, hyperlipidemia, restless leg syndrome. Hospitalist service consulted to help manage elevated blood pressures. Patient normally takes 180 mg p.o. twice daily, and did receive her nighttime dose today. However, starting at around 11 PM her blood pressures began to rise maximum 193/99. She states in the past p.o. diclofenac had to be discontinued due to adverse effect of elevated blood pressures. Upon my interview, patient endorses 3 out of 10 pain in her right hip. She denies severe pain or anxiety, headache, blurred vision, chest pain, difficulty breathing, abdominal pain, diarrhea, constipation or focal weakness. She endorses worsening of her restless leg syndrome this evening and restlessness. Past medical history: As above Past surgical history: Status post right total hip arthroplasty postop day 0. History of tubal ligation, hemorrhoidectomy, cholecystectomy, EGD, colonoscopy, bilateral cataract surgery, carpal tunnel release on the right, abdominoplasty. Social history: Lives with her . Retired. Denies T/E/D. Allergies Allergy/AdvReac Type Severity Reaction Status Date / Time Penicillins Allergy Intermediate ITCHY;LIPS Verified 08/01/19 09:29 TINGLE Sulfa (Sulfonamide Allergy Intermediate ITCHY; Verified 08/01/19 09:29 Antibiotics) LIPS TINGLE Home Medications Home Medications Medication Instructions Recorded Confirmed Type atorvastatin 10 mg PO QPM 03/07/19 08/01/19 History citalopram 40 mg PO QAM 03/07/19 08/01/19 History cranberry 500 mg PO QAM 03/07/19 08/01/19 History verapamil 180 mg PO BID 03/07/19 08/01/19 History clobetasol 0.05 % topical ointment See Rx Instructions TOP .COMPLEX 05/13/19 08/01/19 Rx #60 gm conjugated estrogens 0.625 mg/gram 0.625 mg PV .COMPLEX #30 gm 05/13/19 08/01/19 Rx vaginal cream ferrous sulfate 325 mg PO QAM 05/17/19 08/01/19 History pantoprazole 40 mg PO QAM 07/25/19 08/01/19 History ropinirole 1 mg PO 1500 07/25/19 08/01/19 History ropinirole 1 mg PO HS 07/25/19 08/01/19 History aspirin 81 mg PO BID #0 tab 08/01/19 08/01/19 Rx diclofenac sodium 75 mg PO BID PRN 30 Days #60 tab 08/01/19 Rx oxycodone 5 mg PO Q6H PRN #30 tab 08/01/19 Rx Patient History Medical History Depression Hypercholesterolemia Hypertension Intrinsic asthma stable; no recent issues Restless legs syndrome Stress incontinence in female Arthritis GERD (gastroesophageal reflux disease) controlled Thyroid nodule "benign" Obesity Surgical History History of bronchoscopy with brushings d/t chronic cough (r/t aman inhibitor treatment) History of carpal tunnel release right History of colonoscopy History of esophagogastroduodenoscopy (EGD) S/P thyroid biopsy H/O abdominoplasty History of cataract surgery bilateral Hx of cholecystectomy Hx of hemorrhoidectomy Hx of tubal ligation Family History Mother Myocardial infarction Aunt Breast cancer Maternal Father Colorectal cancer Brother Colorectal cancer Sister Family history of diabetes mellitus Social History Preferred Language: American Communication Ability: Effective 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 Beliefs That Will Affect Care: None marital status: Current Living Situation: Spouse Other Information That Helps Us Care for You: No Feels Safe at Home: Yes Safety Concerns: Feels Safe At This Time Smoking Status: Former smoker Tobacco Type: cigarettes ; Age Started Using Tobacco: 18 ; Age Quit Using Tobacco: 22 ; packs per day: 1 ; Do You Dip or Chew Tobacco: No ; Smoking End Date: Quit 50+ years ; Second Hand Exposure: Yes (as a child) ; Tobacco Cessation Education Requested by Patient: No Hx Alcohol Use: Yes Alcohol type: beer, wine and hard liquor Hx Substance Use: No Review of Systems Review of Systems: Upon my interview, patient endorses 3 out of 10 pain in her right hip. She denies severe pain or anxiety, headache, blurred vision, chest pain, difficulty breathing, abdominal pain, diarrhea, constipation or focal weakness. She endorses worsening of her restless leg syndrome this evening and restlessness. Physical Exam Physical Exam: Vitals noted and within normal limits with the exception of elevated BP GENERAL: Awake, alert to person, place, and time, nontoxic-appearing, in no distress. HENT: Normocephalic, atraumatic. Mucus membranes appear moist. EYES: Normal conjunctiva. Sclera non-icteric. EOMI. NECK: Supple. Full range of motion. No JVD. RESPIRATORY: Clear to auscultation. Normal work of breathing. CARDIAC: Regular rate, normal rhythm. Extremities warm and well perfused, 2+ radial pulses bilaterally; 2+ posterior tibialis pulses bilaterally. ABDOMEN: Soft, non-distended. No tenderness to palpation in all four quadrants. No rebound or guarding. No masses. Bowel sounds are normal. LOWER EXTREMITIES: Inspection of calves reveal equal size bilaterally. They are non-tender. No edema. No discoloration. NEURO: No gross focal motor deficits noted. Sensation in tact. CN II-XII grossly in tact. . SKIN: Rash not present. No jaundice noted. RT hip with large bandage in place, no surrounding erythema or warmth. PSYCH: Appropriate mood and affect. Cooperative. Exam as done by Olag Anderson MD, Leadership Recruiter. Results & Data Vital Signs (Past 12 Hours) Vital Signs Temp Pulse Pulse Pulse Pulse Resp BP 08/01/19 23:35 59 L 60 193/99 H 08/01/19 23:23 36.7 C 67 16 175/93 H 08/01/19 19:46 37.2 C 79 16 08/01/19 17:25 36.4 C L 61 16 08/01/19 16:38 36.5 C 59 L 16 08/01/19 15:05 36.5 C 64 16 08/01/19 14:34 74 16 08/01/19 14:20 36.4 C L 68 16 08/01/19 13:50 36.5 C 64 15 08/01/19 13:40 65 17 08/01/19 13:30 66 12 08/01/19 13:24 36.3 C L 68 17 BP Pulse Ox 08/01/19 23:35 198/98 H 08/01/19 23:23 94 08/01/19 19:46 138/69 92 08/01/19 17:25 130/75 93 08/01/19 16:38 126/67 92 08/01/19 15:05 112/71 92 08/01/19 14:34 134/79 94 08/01/19 14:20 146/83 H 95 08/01/19 13:50 125/71 95 08/01/19 13:40 128/69 100 08/01/19 13:30 126/75 97 08/01/19 13:24 123/63 96 PG Care Time/CCT Total # of Minutes Spent Total Time Spent with Patient: Total time spent is greater than 50% in coordination of care (as documented) at patient's floor/unit and/or counseling patient: Resident Activity Tracking Resident Involvement: Resident Care Provided Care Provided: Adult Hospital Medicine
[2019-08-02] MEDS: CEFAZOLIN 2000MG 2,000 MG/15 ML SYR IV SCH (03:40)
[2019-08-02 05:28] LABS: Hematocrit (blood only) 37.5 % (37-47); Hemoglobin 12.2 g/dL (12.0-16.0); Immature Granulocytes # (auto) 0.02 K/uL (0.00-0.02); Immature Granulocytes % (auto) 0.2 %; Lymphocytes # (auto) 0.64 K/uL (1.2-3.4); Lymphocytes % (auto) 6.2 %; Mean Corpuscular Hemoglobin 31.3 pg (25-34); Mean Corpuscular Hgb Conc 32.5 g/dL (32-36); Mean Corpuscular Volume 96.2 fL (80-100); Mean Platelet Volume 9.5 fL (7.4-10.4); Monocytes # (auto) 0.88 K/uL (0.11-0.59); Monocytes % (auto) 8.5 %; Neutrophils # (auto) 8.82 K/uL (1.4-6.5); Neutrophils % (auto) 85.1 %; Platelet Count 237 K/uL (130-400); RDW Coefficient of Variation 13.5 % (11.5-14.5); RDW Standard Deviation 46.8 fL (36.4-46.3); White Blood Count 10.36 K/uL (4.8-10.8)
[2019-08-02] MEDS: ROPIVACAINE 0.5% HCL/PF 150 MG, BUPIVACAINE 0.5% MPF 30 ML, EPINEPHrine 0.15 MG, Ketoro... INFIL SCH (05:53)
[2019-08-02] MEDS: ACETAMINOPHEN 500 MG TAB PO SCH (05:56)
[2019-08-02 06:01] LABS: BUN Creatinine Ratio 19.5 (10-20); Calcium 8.6 mg/dl (8.5-10.1); Creatinine Clr Calc Pharmacy 82.2 ml/min; Est GFR (African American) 101.8; Est GFR (Non-African American) 87.8; Potassium 4.1 mmol/L (3.5-5.1)
--- NOTE | 2019-08-02 07:43 | Anesthesiology Progress Note ---
Date of Service August 02, 2019 Anesthesia Post Procedure Vital Signs Vital Signs: Temp Pulse Pulse Pulse Pulse Pulse Resp 08/02/19 07:00 36.7 C 56 L 16 08/02/19 03:46 55 L 08/02/19 03:06 36.7 C 61 16 08/02/19 01:00 08/01/19 23:35 59 L 60 08/01/19 23:23 36.7 C 67 16 08/01/19 19:46 37.2 C 79 16 08/01/19 17:25 36.4 C L 61 16 08/01/19 16:38 36.5 C 59 L 16 08/01/19 15:05 36.5 C 64 16 08/01/19 14:34 74 16 08/01/19 14:20 36.4 C L 68 16 08/01/19 13:50 36.5 C 64 15 08/01/19 13:40 65 17 08/01/19 13:30 66 12 08/01/19 13:24 36.3 C L 68 17 08/01/19 09:33 36.6 C 70 18 BP BP Pulse Ox 08/02/19 07:00 158/88 H 91 08/02/19 03:46 183/84 H 08/02/19 03:06 176/94 H 94 08/02/19 01:00 181/91 H 08/01/19 23:35 193/99 H 198/98 H 08/01/19 23:23 175/93 H 94 08/01/19 19:46 138/69 92 08/01/19 17:25 130/75 93 08/01/19 16:38 126/67 92 08/01/19 15:05 112/71 92 08/01/19 14:34 134/79 94 08/01/19 14:20 146/83 H 95 08/01/19 13:50 125/71 95 08/01/19 13:40 128/69 100 08/01/19 13:30 126/75 97 08/01/19 13:24 123/63 96 08/01/19 09:33 182/90 H 94 Pain Intensity Right Hip: Pain Intensity: 2 Notes Mental Status: alert / awake / arousable and participated in evaluation Nausea / Vomiting: adequately controlled Pain: adequately controlled Airway Patency, RR, SpO2: stable & adequate BP & HR: stable & adequate Hydration State: stable & adequate
--- NOTE | 2019-08-02 07:58 | Family Medicine Progress Note ---
Date of Service August 02, 2019 Assessment & Plan (1) Hypertension: 74-year-old female postop day 0 from right total hip arthroplasty, hospitalist service consulted for elevated blood pressures overnight. #HTN without evidence of hypertensive urgency or emergency -Etiology likely multifactorial given history of chronic hypertension, history of adverse effect of NSAIDs on blood pressures, situational issues like perioperative setting, status post Decadron dosing, pain, restless leg and sleeplessness. -DC Toradol in the future would avoid NSAIDs Would use steroids cautiously in the future as they appear to elevate her blood pressure Pain appears adequately controlled on current regimen, discharge regimen per Ortho Morning CBC and BMP within normal limits, no signs of endorgan damage Continue outpatient verapamil 180 mg twice daily Advised patient should she have symptoms of headache, blurred vision, chest pain, difficulty breathing, presyncope once discharged she should contact her PCP or present to the ER for further evaluation. Signing off #Gastroesophageal reflux disease without esophagitis: No acute issues. Continue home pantoprazole. #Primary localized osteoarthrosis of right hip: Status post right hip arthroplasty as above. #Depression: Continue home citalopram 40 mg every morning. #Hypercholesterolemia: Continue home statin. #Restless legs syndrome: Currently exacerbated per the patient. Continue home iron and ropinirole. FEN/GI: Recommend heart healthy diet, order placed. Continue home pantoprazole. DVT ppx: Patient is currently ordered SCDs. Defer to orthopedic service. CODE STATUS: Full code as discussed with the patient. DISPO: Discharge per Ortho Aleks Beauchamp MD PGY 2, FCM This chart was completed utilizing [employer] voice recognition software. Grammatical errors, random word insertions, pronoun errors, and in complete sentences are an occasional consequence of the system. Any questions or concerns about the content, text, or information contained within the body of this dictation should be addressed directly to the physician for clarification. Supervising Physician Co-Signing Physician Notes Patient seen and examined with Dr. Beauchamp. I agree with their exam findings, review of systems, assessment and plan. I have personally reviewed the lab work and imaging from today. hip pain well controlled, eating well, no chest pain, no dyspnea, no cough, ready to go home Exam: WDWN female, NAD, lungs CTA bilaterally normal effort, heart regular S1 S2 no murmurs, abdomen soft, NT, ND, +BS - s/p DOUGLAS: pain controlled, stable medically for discharge - HTN with elevated BP readings: agree that it was likely multifactorial with pain, NSAIDS continue Verapamil, pain control, avoid NSAIDs okay to go home today Subjective Patient sitting up in bed this morning in no acute distress with her at the bedside. Patient reports doing well overnight without any acute events, pain well controlled. Patient reports the past she has a history of having elevated blood pressure secondary to diclofenac and other NSAIDs, likely etiology of her current presentation. She has done well on verapamil as an outpatient we expect to continue to do well on verapamil moving forward. Patient was seen by Ortho mediately prior to our interview they report they will be discharging her later. Will defer further blood pressure management in the outpatient setting. Otherwise patient is voiding, stooling, tolerating her diet, sleeping. No acute concerns at present all questions answered. Physical Exam Physical Exam: General: No acute distress HEENT: Normocephalic atraumatic Neck: No significant lymphadenopathy, trachea midline, normal to visual inspection Cardiac: Regular rate and rhythm, normal S1, normal S2, I did not appreciated any significant murmurs rubs or gallops, I did not appreciate any significant pedal edema, No calf tenderness, capillary refill is less than 3 seconds Respiratory: Clear to auscultation bilaterally with symmetrical chest rise, I did not appreciate any significant wheezes, rales, rhonchi, no increased work of breathing GI: Normal bowel sounds, soft, nontender in all 4 quadrants, nondistended MSK: No sensory or motor changes, moves all extremities without issue, extremities are warm and well-perfused Right leg bandaged secondary to RTHA, surgical site, clean, dry, intact Skin: [place], clean, dry, intact. Neuro: Alert and oriented x4 Psych: Calm, cooperative, logical thought process Results & Data Vital Signs (Past 12 Hours) Vital Signs Temp Pulse Pulse Pulse Resp BP BP 08/02/19 07:00 36.7 C 56 L 16 158/88 H 08/02/19 03:46 55 L 183/84 H 08/02/19 03:06 36.7 C 61 16 176/94 H 08/02/19 01:00 181/91 H 08/01/19 23:35 59 L 60 193/99 H 198/98 H 08/01/19 23:23 36.7 C 67 16 175/93 H Pulse Ox 08/02/19 07:00 91 08/02/19 03:46 08/02/19 03:06 94 08/02/19 01:00 08/01/19 23:35 08/01/19 23:23 94 Laboratory Results 08/02/19 08/02/19 08/02/19 Range/Units 04:52 04:52 04:52 WBC 10.36 (4.8-10.8) K/uL RBC 3.90 L (4.2-5.4) M/uL Hgb 12.2 (12.0-16.0) g/dL Hct 37.5 (37-47) % MCV 96.2 (80-100) fL MCH 31.3 (25-34) pg MCHC 32.5 (32-36) g/dL RDW Std Deviation 46.8 H (36.4-46.3) fL RDW Coeff of Stephie 13.5 (11.5-14.5) % Plt Count 237 (130-400) K/uL MPV 9.5 (7.4-10.4) fL Immature Gran % (Auto) 0.2 % Neut % (Auto) 85.1 % Lymph % (Auto) 6.2 % [place] % (Auto) 8.5 % Eos % (Auto) 0.0 % Baso % (Auto) 0.0 % Immature Gran # (Auto) 0.02 (0.00-0.02) K/uL Neut # (Auto) 8.82 H (1.4-6.5) K/uL Lymph # (Auto) 0.64 L (1.2-3.4) K/uL [place] # (Auto) 0.88 H (0.11-0.59) K/uL Eos # (Auto) 0.00 (0-0.5) K/uL Baso # (Auto) 0.00 (0-0.2) K/uL Sodium 137 (136-145) mmol/L Potassium 4.1 (3.5-5.1) mmol/L Chloride 105 (98-107) mmol/L Carbon Dioxide 26 (21-32) mmol/L Anion Gap 6.0 (3-11) BUN 13 (7-18) mg/dl Creatinine 0.67 (0.6-1.2) mg/dl Est Cr Clr Drug Dosing 82.2 ml/min Est GFR ( Amer) 101.8 Est GFR (Non-Af Amer) 87.8 BUN/Creatinine Ratio 19.5 (10-20) Glucose 128 H (70-99) mg/dl Calcium 8.6 (8.5-10.1) mg/dl Hepatitis C Ab Screen Neg (Neg) Medications Administered Current Inpatient Medications Acetaminophen (Tylenol) 1,000 mg PO Q8 [facility] Stop: 08/31/19 19:59 Last Admin: 08/02/19 05:56 Dose: 1,000 mg Documented by: Al Hydrox/Mg Hydrox/Simethicone (Maalox) 15 ml PO Q4H PRN PRN Reason: Heartburn Stop: 08/31/19 13:37 Atorvastatin Calcium (Lipitor) 10 mg PO QPM [facility] Stop: 08/31/19 20:59 Last Admin: 08/01/19 20:47 Dose: 10 mg Documented by: Bisacodyl (Dulcolax) 10 mg MI DAILY PRN PRN Reason: Constipation Stop: 08/31/19 13:37 Citalopram Hydrobromide (Celexa) 40 mg PO QAM [facility] Stop: 09/01/19 08:59 Last Admin: 08/02/19 08:57 Dose: 40 mg Documented by: Clobetasol Propionate (Clobetasol Propionate Oint) 1 appln EXT [id number] PRN PRN Reason: AFFECTED AREAS Stop: 08/31/19 14:32 Diphenhydramine HCl (Benadryl) 25 mg IV Q8H PRN PRN Reason: Itching Stop: 08/31/19 13:37 Last Admin: 08/01/19 23:31 Dose: 25 mg Documented by: Docusate Sodium (Colace) 100 mg PO BID [facility] Stop: 08/31/19 20:59 Last Admin: 08/02/19 08:58 Dose: 100 mg Documented by: Ferrous Sulfate (Feosol) 325 mg PO QAM [facility] Stop: 09/01/19 08:59 Last Admin: 08/02/19 08:58 Dose: 325 mg Documented by: Hydromorphone HCl (Dilaudid) 0.5 mg IV Q4H PRN PRN Reason: Pain Stop: 08/15/19 13:37 Ropivacaine 150 mg/Bupivacaine HCl 30 ml/Epinephrine HCl 0.15 mg/Ketorolac Tromethamine 30 mg/Dexamethasone 4 mg/ Ketamine HCl 10 mg/ Clonidine HCl 100 mcg/ Sodium Chloride 93.35 mls @ 0 mls/hr INFIL PREOP [facility]; Protocol Stop: 08/06/19 05:59 Last Admin: 08/02/19 05:53 Dose: Not Given Documented by: Ketorolac Tromethamine (Toradol) 15 mg IV Q6H [facility] Last Admin: 08/01/19 20:46 Dose: 15 mg Documented by: Magnesium Hydroxide (Milk Of Magnesia) 30 ml PO Q6H PRN PRN Reason: Constipation Stop: 08/31/19 13:37 Metoclopramide HCl (Reglan) 10 mg IV Q6H PRN PRN Reason: Nausea And Vomiting Stop: 08/31/19 13:37 Multivitamins (Multivitamin Tab) 1 tab PO [facility] Stop: 09/01/19 08:59 Last Admin: 08/02/19 08:57 Dose: 1 tab Documented by: Naloxone HCl (Narcan) 0.1 mg IV Q5M PRN PRN Reason: Oversedation/Resp Depression Stop: 08/31/19 13:37 Ondansetron HCl (Zofran) 4 mg IV Q6H PRN PRN Reason: Nausea And Vomiting Stop: 08/31/19 13:37 Oxycodone HCl (Roxicodone Immediate Rel) 5 - 10 mg PO Q4H PRN PRN Reason: Pain Stop: 08/15/19 13:37 Last Admin: 08/02/19 00:52 Dose: 10 mg Documented by: Pantoprazole Sodium (Protonix) 40 mg PO QAM [facility] Stop: 09/01/19 08:59 Last Admin: 08/02/19 08:58 Dose: 40 mg Documented by: Ropinirole HCl (Requip) 1 mg PO 1500 [facility] Stop: 08/31/19 14:59 Last Admin: 08/01/19 15:49 Dose: 1 mg Documented by: Ropinirole HCl (Requip) 1 mg PO HS [facility] Stop: 08/31/19 20:59 Last Admin: 08/01/19 20:48 Dose: 1 mg Documented by: Sennosides (Senokot) 17.2 mg PO [facility] Stop: 08/31/19 20:59 Last Admin: 08/01/19 20:48 Dose: 17.2 mg Documented by: Tramadol HCl (Ultram) 50 - 100 mg PO Q4H PRN PRN Reason: Pain Stop: 08/31/19 13:37 Verapamil HCl (Calan Sr) 180 mg PO BID [facility] Stop: 08/31/19 20:59 Last Admin: 08/02/19 08:58 Dose: 180 mg Documented by: PG Care Time/CCT Total # of Minutes Spent Total Time Spent with Patient: Total time spent is greater than 50% in coordination of care (as documented) at patient's floor/unit and/or counseling patient: Resident Activity Tracking Resident Involvement: Resident Care Provided Care Provided: Adult Hospital Medicine
[2019-08-02] MEDS ORDERED: dexAMETHasone 4 MG TAB PO SCH (08:00)
[2019-08-02] MEDS: VERAPAMIL HCL 180 MG TABCR PO SCH (08:58)
[2019-08-02] MEDS: DOCUSATE SODIUM 100 MG CAP PO SCH (08:58)
[2019-08-02] MEDS ORDERED: FERROUS SULFATE 325 MG TAB PO SCH (09:00)
[2019-08-02] MEDS ORDERED: CITALOPRAM 40 MG TAB PO SCH (09:00)
[2019-08-02] MEDS ORDERED: NON-FORMULARY MEDICATION (Cranberry 500 MG) PO SCH (09:00)
[2019-08-02] MEDS ORDERED: PANTOprazole 40 MG TAB PO SCH (09:00)
[2019-08-02] MEDS ORDERED: MULTIVITAMIN TAB PO SCH (09:00)
--- NOTE | 2019-08-02 09:02 | Orthopedic Progress Note ---
Date of Service August 02, 2019 Assessment & Plan (1) S/P total hip arthroplasty: WBAT with walker PT/OT his AM Plan on discharge later today with in-home therapy keep dressing in place Appreciate Medicine assistance DVT prophy with TEDs and Aspirin Ice with EZ wrap Pain control with PO Meds Abduction pillow use total hip precautions Follow up at [facility] as scheduled in 2 wks (2) Hypertension: F/u with PCP to discuss hypertension and possibility of medication adjustment. Subjective This 74 yo F is day 1 s/p Right Total hip arthroplasty. Patient states that she is doing very well with no pain today. She states that her BP was elevated last night and that she was seen by one of the hospitalists. She states that she has had episodic hypertension "for quite some time." She plans on discussing it with her PCP in the coming weeks. She has been ambulatory with walker assistance. She denies CP, SOB, fever, chills, sweats, lethargy, numbness/tingling, nausea or vomiting. Review of Systems Review of Systems: All systems reviewed & are unremarkable except as noted in HPI & below Physical Exam Physical Exam: Righ lower leg: Dressing clean, dry and intact. Able to fire quad and perform SLRT. Knee ROM from 0-90 causes only mild hip discomfort. Minimal pain with very light internal and external hip rotation. Able to actively dorsi/plantar flex foot. Calf soft and supple. Periph pulses easily palpable. Cap refill < 2 seconds. Results & Data Vital Signs (Past 12 Hours) Vital Signs Temp Pulse Pulse Pulse Resp BP BP 08/02/19 07:00 36.7 C 56 L 16 158/88 H 08/02/19 03:46 55 L 183/84 H 08/02/19 03:06 36.7 C 61 16 176/94 H 08/02/19 01:00 181/91 H 08/01/19 23:35 59 L 60 193/99 H 198/98 H 08/01/19 23:23 36.7 C 67 16 175/93 H Pulse Ox 08/02/19 07:00 91 08/02/19 03:46 08/02/19 03:06 94 08/02/19 01:00 08/01/19 23:35 08/01/19 23:23 94 Laboratory Results 08/02/19 08/02/19 08/02/19 Range/Units 04:52 04:52 04:52 WBC 10.36 (4.8-10.8) K/uL RBC 3.90 L (4.2-5.4) M/uL Hgb 12.2 (12.0-16.0) g/dL Hct 37.5 (37-47) % MCV 96.2 (80-100) fL MCH 31.3 (25-34) pg MCHC 32.5 (32-36) g/dL RDW Std Deviation 46.8 H (36.4-46.3) fL RDW Coeff of Stephie 13.5 (11.5-14.5) % Plt Count 237 (130-400) K/uL MPV 9.5 (7.4-10.4) fL Immature Gran % (Auto) 0.2 % Neut % (Auto) 85.1 % Lymph % (Auto) 6.2 % [place] % (Auto) 8.5 % Eos % (Auto) 0.0 % Baso % (Auto) 0.0 % Immature Gran # (Auto) 0.02 (0.00-0.02) K/uL Neut # (Auto) 8.82 H (1.4-6.5) K/uL Lymph # (Auto) 0.64 L (1.2-3.4) K/uL [place] # (Auto) 0.88 H (0.11-0.59) K/uL Eos # (Auto) 0.00 (0-0.5) K/uL Baso # (Auto) 0.00 (0-0.2) K/uL Sodium 137 (136-145) mmol/L Potassium 4.1 (3.5-5.1) mmol/L Chloride 105 (98-107) mmol/L Carbon Dioxide 26 (21-32) mmol/L Anion Gap 6.0 (3-11) BUN 13 (7-18) mg/dl Creatinine 0.67 (0.6-1.2) mg/dl Est Cr Clr Drug Dosing 82.2 ml/min Est GFR ( Amer) 101.8 Est GFR (Non-Af Amer) 87.8 BUN/Creatinine Ratio 19.5 (10-20) Glucose 128 H (70-99) mg/dl Calcium 8.6 (8.5-10.1) mg/dl Hepatitis C Ab Screen Neg (Neg)
--- NOTE | 2019-08-02 11:04 | Discharge Summary ---
Date of Service August 02, 2019 Admission HPI Per Admitting Provider HISTORY OF PRESENT ILLNESS: This 74-year-old female presents to the clinic today for preoperative history and physical. The patient complains of a 1+ year history of severe right hip pain with limited range of motion. The patient states she has been trying to lose weight, but has been unable to do so due to limitations presented by the pain that she experiences. The patient has been using hydrocodone for breakthrough pain that is provided by her PCP. She recently returned from a trip to [place] and states that she had great difficulty ambulating during her time and felt that the pain was debilitating in nature, requiring her to use a wheelchair during most of her visit. The patient is recommending to undergo a right total hip arthroplasty at our soonest availability. PAST SURGICAL HISTORY: Right carpal tunnel release, shave biopsy and cauterization of skin, colonoscopy, bronchial brushing sample, bronchial wash and transbronchial lung biopsy, cataract surgery, cholecystectomy, fistulectomy of the rectum, tummy tuck, and tubal ligation. PAST MEDICAL HISTORY: Asthma, hypertension, benign neoplasm of the colon, benign neoplasm of the thyroid, bilateral leg weakness, bradycardia, cervicalgia, depression, diverticulitis, gastroesophageal reflux, hiatal hernia, herpes labialis, history of basal cell cancer, history of squamous cell carcinoma, impaired fasting glucose, insomnia, lichen sclerosus, hyperlipidemia, recurrent urinary tract infection, restless leg syndrome, tubular adenoma, urinary incontinence and obesity. FAMILY HISTORY: Positive for colon cancer, drug dependence, heart attack, heart failure, hypertension and stroke. SOCIAL HISTORY: The patient states she consumes 2 alcoholic beverages per day, but denies tobacco or illicit drug use. ALLERGIES: THE PATIENT HAS MEDICATION ALLERGIES TO PENICILLIN, PROVENTIL, SULFA DRUGS, AND ZESTRIL. CURRENT MEDICATIONS: Acetaminophen/hydrocodone 325 mg/5 mg oral tablet 1 tab every 12 hours as needed for pain, low-dose aspirin 81 mg daily, atorvastatin 10 mg oral tablet daily, citalopram 40 mg oral tablet 1 tab daily, clobetasol topical 0.05% ointment 2 times weekly, clonazepam 0.5 mg oral tablet 1 tablet at bedtime, cranberry oral capsule, unknown dosage daily, pantoprazole 40 mg oral delayed release tablet 1 tab twice daily, Premarin vaginal 0.625 mg per gram cream with applicator, 1 application 1-3 times per week, ropinirole 1 mg oral tablet 1 tablet each morning and each night, verapamil 180 mg/12 hour oral tablet extended release 1 tab every 12 hours. T Admission Exam Per Admitting Provider PHYSICAL EXAMINATION: Skin: The patient's skin is normal in appearance. No open skin lesions or discharge. Eyes: Pupils are equal and reactive to light and accommodating. Extraocular movements are intact. Throat: Posterior pharynx is clear with absence of edema, erythema or exudate. Cardiovascular exam: The patient has a regular rate and rhythm with no murmurs or gallops appreciated. Lungs: Auscultation of lung law reveals clear breath sounds throughout, no wheezing, rales or rhonchi. Abdomen is obese, nondistended, n ontender with normoactive bowel sounds. Extremities: Right hip: The patient has a positive log roll test, positive Stinchfield test, positive straight leg raise test. She is unable to perform AGUSTÍN maneuver due to pain she experiences in her groin and posterior hip. She has tenderness to palpation of the anterior groin and posterior hip. There is a palpable crepitation with range of motion. She experiences referred pain to the groin with passive abduction and adduction as well as with passive light internal and external rotation of the hip. Flexion is limited to 90 degrees. The patient is neurovascularly intact in the right lower extremity. Neurological exam: Cranial nerves 2-12 are intact. No motor or sensory deficit. Psychological/general exam: The patient is alert and oriented x3 with proper grooming and hygiene. Principal Diagnosis Right hip osteoarthritis Discharge Exam Right lower leg: Dressing clean, dry and intact. Able to fire quad and perform SLRT. Knee ROM from 0-90 causes only mild hip discomfort. Minimal pain with very light internal and external hip rotation. Able to actively dorsi/plantar flex foot. Calf soft and supple. Periph pulses easily palpable. Cap refill < 2 seconds. Discharge Data Allergies Allergy/AdvReac Type Severity Reaction Status Date / Time Penicillins Allergy Intermediate ITCHY;LIPS Verified 08/01/19 09:29 TINGLE Sulfa (Sulfonamide Allergy Intermediate ITCHY; Verified 08/01/19 09:29 Antibiotics) LIPS TINGLE Consultations 08/02/19 00:03 Consult Hospitalist Routine 08/02/19 08:00 Consult Case Management - Discharge Planning Routine Procedures Performed Operation Date: 08/01/19 11:35 Actual Procedures p Right Total Hip Arthroplasty, Uncemented(Right) - Isaiah Hollingsworth MD Hospital Course (1) S/P total hip arthroplasty: Patient developed non-symptomatic hypertension last evening and was evaluated by medicine service. They felt patient was stable and BP normalized this AM after discontinuation of steroids and NSAIDs. They recommended PCP f/u eval. Otherwise orthopedically she is doing very well and will be ready for discharge later today. WBAT with walker PT/OT his AM Plan on discharge later today with in-home therapy keep dressing in place Appreciate Medicine assistance DVT prophy with TEDs and Aspirin Ice with EZ wrap Pain control with PO Meds Abduction pillow use total hip precautions Follow up at [facility] as scheduled in 2 wks (2) Hypertension: F/u with PCP to discuss hypertension and possibility of medication adju stment. Total Time Total Time Spent Total Time Spent (In Minutes): 25 mins Total Time Includes: Examination of the Patient, Discharge Planning, Medication Reconciliation and Communication With Other Providers Discharge Plan Discharge Items Patient Disposition: Home - Home Health Services Reason For Visit: Right Hip Osteoarthritis Discharge Diagnosis: Right Hip Osteoarthritis Activity: As commented below Lifting: None Bathing: Keep incision dry Bathing Comment: May shower tomorrow Sexual Activity: Wait until after follow-up appointment Exercise/Sports: Wait until after follow-up appointment Driving/Machine Use: No driving until cleared by mechanical specialist Weightbearing: Right weightbearing Weightbearing Comment: as tolerated with walker assistance Non-emergency contact: Primary Care Provider Call non-emergency contact if: you have any medication questions, your pain is not controlled, your temperature is above 101.5, your wound has increased drainage and your wound pain has increased Follow-up/Referrals: Heidi Delacruz MD [Primary Care Provider] - Diet: Heart Healthy Addtl Attending Provider Instructions: Post-operative Instructions Dear Patient and Family/Friends, Before you are discharged from the hospital, it is important to know what to expect when you get home after surgery. To that end, we have created this sheet of discharge instructions which covers many commonly asked questions. Make sure you go through this sheet in its entirety with your nurse before you are discharged. Please note that we will go over the specifics of your surgery and recovery when you return for your first post-operative visit. Sincerely, Dr. Hollingsworth Medications 1. Aspirin 81 mg: you will take one tablet twice daily for 30 days post operatively to prevent blood clots. Please purchase this medication 2. Extra Strength Tylenol 500 mg: you may take two of these tablets with every other dose of your Oxycodone. When you discontinue use of Oxycodone, you may take every 6-8 hours as needed. 3. Oxycodone 5mg: you will be prescribed 30 of these tablets for pain control for the first several days post operatively as needed. 4. 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 Take 1 tablet after breakfast and 1 tab after dinner for 30 days post operative. An additional refill will be provided. If you take any other antiinflammatory medication, please discontinue them while you are using this medication. Pain Expect to be in a fair amount of pain after surgery. Remember, our goal is not to eliminate your pain, but to make it tolerable. It is a good idea to stay ahead of your pain by taking the medications you were prescribed once you get home. Typically, the pain starts improving 3-7 days after surgery. You should start weaning off the narcotic pain medication (oxycodone, hydrocodone, hydromorphone, morphine) as soon as your pain improves. Please call our office if your pain is not adequately controlled. Ice Ice your operative site at least 5 times a day for 15-30 minutes at a time. Make sure you have a thin cloth between the ice or cooling unit and your skin to prevent fiore bite. This is especially important if you received a nerve block. Continue icing your operative site for the first 5-7 days after surgery, then as needed. Diet/Nausea/Vomiting Start by drinking clear liquids and eating crackers. If you can tolerate this, then you may resume your normal diet. If you feel nauseated or vomit, take Zofran/ondansetron (if prescribed). Please call our office if you have intractable nausea or vomiting, or, if after hours, you may go to the Emergency Room for help. Constipation Constipation is a common side effect of narcotic pain medication. If you have not had a bowel movement within 2 days after surgery, we recommend purchasing an over the counter laxative such as Milk of Magnesia, Dulcolax, or Miralax from a local pharmacy, and taking it as instructed. Call our clinic if any questions. Nerve block The anesthesia team sometimes places a nerve block to help with post-operative pain control. This results in significant numbness and inability to move the extremity. The nerve block usually wears off in 8-12 hours, but sometimes can last up to 24 hours. Please call our office if you are still unable to move your extremity after 24 hours, unless you received a pain pump to take home. Nerve blocks typically wear off quickly, so start taking pain medication as soon as you start feeling soreness near your surgical site. Weight bearing and Range of Motion. Do not bear any weight through your operative extremity immediately after surgery. If you had upper extremity surgery, do not lift anything with that arm. If you are in a knee brace, keep it locked in place until your follow-up. We will discuss your weight bearing, range of motion, and lifting restrictions in detail at your first post-operative appointment. Continuous Passive Motion (CPM) Machine If you were prescribed a CPM machine, it will start after your first post- operative appointment, at which time we will give you instructions on the range of motion settings and duration of treatment Physical therapy You will be given a prescription for physical therapy or occupational therapy at your first post-operative appointment. Typically, patients start therapy within 1 week of surgery Wound care and showering We will inspect your wound at your first post-operative visit, and may do a dressing change at that time. Most patients will be in a water-proof dressing that is removed 14 days after surgery. It is normal to see some dried blood on the dressing. Do not remove your dressing, paper strips or sutures yourself unless you are given permission. Showering is allowed the day after surgery. Do not scrub or remove any dressings. The wound should not be submerged underwater (i.e. in a bathtub or pool) until 4 weeks after surgery FLORENTINO stockings If you were given white stockings, these are to be worn at all times except to shower (on both legs) for the first 2 weeks after surgery. Driving You may not drive while taking narcotic pain medication or while in a cast, splint, sling or brace. You, the patient, need to make the final determination about when you are safe to drive, however, the earliest you may consider driving after surgery is below: Hand/Wrist/Elbow Surgery: 3 days Shoulder Surgery: 2 weeks Hip,/Knee/Ankle Surgery: 4 weeks Fracture repair: 6 weeks Return to Work Your return to work depends on what surgery was done and what type of work you do. Please bring any paperwork your employer needs completed to your first post-operative visit. Also, bring a description of your job duties, as this helps us to understand what risks you may face at work. Travel Avoid long distance travel (greater than 1 hour) in airplanes and cars for the first 6 weeks after surgery. If you must travel, you need to have a Doppler ultrasound done before you travel to rule out a blood clot in your legs. Follow-up You should have a follow-up appointment already scheduled 1-2 days after surgery. If not, please contact our office to make this appointment before you leave the hospital. When to call the office It is normal to have swelling and bruising in the limb that was operated on. This will improve with time. It is also normal to have fevers for the first 2 days after surgery. Reasons you should call your doctor include: Uncontrolled pain; Nausea, vomiting, or constipation that does not improve with medication; Fevers over 101.5, chills, sweats; Drainage or bleeding from the wound; Foul odor; Spreading areas of redness; Any other concerns Pending Studies at Discharge: No Stand-Alone Forms: [facility], Opioid Pain Management Medications and DC Order Prescriptions: New oxycodone 5 mg tablet 5 mg PO Q6H PRN (Reason: pain) Qty: 30 RF: 0 diclofenac sodium 75 mg tablet,delayed release (DR/EC) 75 mg PO BID PRN (Reason: pain) 30 Days Qty: 60 RF: 1 Continued Premarin 0.625 mg/gram cream 0.625 mg PV .COMPLEX Qty: 30 RF: 0 clobetasol 0.05 % ointment See Rx Instructions TOP .COMPLEX Qty: 60 RF: 0 ferrous sulfate 325 mg PO QAM RF: 0 atorvastatin 10 mg tablet 10 mg PO QPM RF: 0 citalopram 40 mg tablet 40 mg PO QAM RF: 0 verapamil 180 mg tablet extended release 180 mg PO BID RF: 0 cranberry 500 mg Capsule 500 mg PO QAM RF: 0 ropinirole 1 mg Tablet 1 mg PO HS RF: 0 ropinirole 1 mg Tablet 1 mg PO 1500 RF: 0 pantoprazole 40 mg Tablet,Delayed Release (Dr/Ec) 40 mg PO QAM RF: 0 Changed aspirin 81 mg Tablet,Delayed Release (Dr/Ec) 81 mg PO BID Qty: 0 RF: 0 Discharge Orders: Discharge Order (Routine); Ordered 08/02/19 Ordered By: Ahsan Vallejo/Other Patient Handouts: Surgery Prevent DVT After Admission Data Admit Date/Time: 08/01/19 13:38 Attending Provider: Isaiah Hollingsworth Admit Provider: Isaiah Hollingsworth Primary Care Provider: Heidi Delacruz Other Providers: Ramsey Pak Other Interventions: Discharge Summary Assessment (RN) Last Done: 08/02/19 11:01
== END 2019-08-02 13:52 | disposition home health service (06) | DRG 470 ==
LOC: ASU 09:00 → 3E 13:38

== ENCOUNTER 2021-06-03 05:09 | Observation (INO) ==
--- NOTE | 2021-05-17 08:53 | PAT Medication Instructions ---
Medication Instructions Date of Service May 17, 2021 Home Medications Medication Instructions Recorded conjugated estrogens 0.625 mg/gram 0.625 mg PV .COMPLEX #30 gm 05/13/19 vaginal cream (Premarin) clobetasol 0.05 % topical ointment See Rx Instructions TOP .COMPLEX 03/17/21 #60 gm cranberry 500 mg capsule 500 mg PO QAM verapamil 180 mg tablet,extended release 180 mg PO BID conjugated estrogens 0.625 mg/gram vaginal cream (Premarin) 0.625 mg PV .COMPLEX pantoprazole 40 mg tablet,delayed release 40 mg PO QAM ropinirole 1 mg tablet 1 mg PO DAILY ropinirole 1 mg tablet 1 mg PO HS aspirin 81 mg tablet,delayed release 81 mg PO HS atorvastatin 20 mg tablet 20 mg PO HS citalopram 20 mg tablet 20 mg PO QAM losartan 50 mg tablet 50 mg PO HS clobetasol 0.05 % topical ointment See Rx Instructions TOP .COMPLEX STOP taking 2 weeks before surgery (or as soon as possible if surgery is within 2 weeks) cranberry 500 mg capsule 500 mg PO QAM STOP taking 24 hours before surgery clobetasol 0.05 % topical ointment See Rx Instructions TOP .COMPLEX DO NOT take the morning of surgery conjugated estrogens 0.625 mg/gram vaginal cream (Premarin) 0.625 mg PV .COMPLEX ropinirole 1 mg tablet 1 mg PO DAILY Take morning of surgery With a small sip of water, OTHERWISE NOTHING TO EAT OR DRINK AFTER MIDNIGHT: verapamil 180 mg tablet,extended release 180 mg PO BID pantoprazole 40 mg tablet,delayed release 40 mg PO QAM citalopram 20 mg tablet 20 mg PO QAM Take evening before surgery verapamil 180 mg tablet,extended release 180 mg PO BID ropinirole 1 mg tablet 1 mg PO HS aspirin 81 mg tablet,delayed release 81 mg PO HS (continue as normal unless told otherwise by surgeon) atorvastatin 20 mg tablet 20 mg PO HS losartan 50 mg tablet 50 mg PO HS Other Notes If you have any questions please call us at [phone] or [phone] or [phone] or [phone]
--- NOTE | 2021-05-18 11:29 | Anesthesiology Consultation ---
Date of Service May 18, 2021 Assessment & Plan (1) Encounter for pre-operative examination: - COVID screening: Per assessment on 05/18: Travel screen negative, no known COVID-19 positive contacts or current COVID-19 related symptoms. Patient vaccinated. Surgeon arranging preop COVID testing. Awaiting results. - S/P Right DOUGLAS (08/01/19): SAB at L3/L4 (x1 attempt) at [facility] Chart Review Chart Review: Acceptable Risk for Surgery (pending surgeon-ordered PCP clearance) and Patient seen in Pre Admission Testing Teaching & Discussion Pre-Anesthesia Teaching/Discussion Notes: Instructed NPO after midnight before surgery,except medications with 15 cc of water. Medication instructions provided according to the PAT guidelines. History Surgery Operation Date: 06/03/21 07:00 Proposed Procedures p Left Total Hip Arthroplasty - Isaiah Hollingsworth MD Height/Weight Height: 5 ft 4 in Weight: 83.9 kg Allergies Allergy/AdvReac Type Severity Reaction Status Date / Time Penicillins Allergy Intermediate Itchiness, Verified 05/18/21 11:26 lips tingling Sulfa (Sulfonamide Allergy Intermediate Itchiness, Verified 05/18/21 11:26 Antibiotics) lips tingling Medications Home Medications Medication Instructions Recorded Confirmed Last Taken cranberry 500 mg capsule 500 mg PO QAM 03/07/19 05/17/21 04/19/20 verapamil 180 mg tablet,extended 180 mg PO BID 03/07/19 05/17/21 04/20/20 release conjugated estrogens 0.625 mg/gram 0.625 mg PV .COMPLEX #30 gm 05/13/19 05/17/21 04/17/20 vaginal cream (Premarin) pantoprazole 40 mg tablet,delayed 40 mg PO QAM 07/25/19 05/17/21 04/19/20 release ropinirole 1 mg tablet 1 mg PO DAILY 07/25/19 05/17/21 04/19/20 ropinirole 1 mg tablet 1 mg PO 07/25/19 05/17/21 04/19/20 aspirin 81 mg tablet,delayed 81 mg PO 04/10/20 05/17/21 04/19/20 release atorvastatin 20 mg tablet 20 mg PO 04/10/20 05/17/21 04/19/20 citalopram 20 mg tablet 20 mg PO QAM 0605/17/21 04/19/20 losartan 50 mg tablet 50 mg PO HS 04/10/20 05/17/21 04/19/20 clobetasol 0.05 % topical ointment See Rx Instructions TOP .COMPLEX 03/17/21 05/17/21 Unknown #60 gm Past Medical History Medical History Arthritis Depression GERD (gastroesophageal reflux disease) controlled History of DVT (deep vein thrombosis) remote per records from surgeon's office Hypercholesterolemia Hypertension Intrinsic asthma stable; no recent issues Lichen sclerosus et atrophicus Obesity Primary localized osteoarthrosis of right hip Restless legs syndrome Stress incontinence in female Thyroid nodule "benign" Exercise / Class Metabolic Activity II 4-5 Yardwork/Stairs/Walk up hill (one FS (no CP, no SOB)) Past Family History Family History Mother Myocardial infarction Aunt Breast cancer Maternal Father Colorectal cancer Brother Colorectal cancer Sister Family history of diabetes mellitus Denies family history of Ovarian cancer Past Surgical History Surgical History H/O abdominoplasty History of bronchoscopy with brushings (2013) d/t chronic cough (r/t aman inhibitor treatment) History of carpal tunnel release right (2016) left CTR + left middle trigger finger release (04/20/20): MAC at [facility] History of cataract surgery R/L (2011) History of colonoscopy History of esophagogastroduodenoscopy (EGD) History of total hip arthroplasty Right DOUGLAS (08/01/19): SAB at L3/L4 (x1 attempt) at [facility] Hx of cholecystectomy Hx of hemorrhoidectomy Hx of tubal ligation S/P thyroid biopsy Past Anesthesia History No Hx of Anesthesia Complications and No Family Hx of Anesthesia Complications History of PONV No Hx of PONV and No Hx of Motion Sickness Social History Smoking Status: Former smoker Do You Dip or Chew Tobacco: No Smoking End Date: Quit age 20's Hx Alcohol Use: Yes Alcohol type: beer alcohol intake frequency: 0-2 drinks per day (1 drink/day) Hx Substance Use: No substance use type: does not use Review of Systems Patient denies chest pain, shortness of breath, dyspnea on exertion, fever, chills, cough, wheezing, palpitations. Physical Exam Vital Signs VITALS BP 153/79 P 56 TEMP 98.2 SP02 95%RA RESP 16 PHYSICAL Full cervical extension range of motion. Full TMJ range of motion. TMD 4 finger breaths Mallampati Score 2 Dentition: missing molars Lungs: clear throughout to auscultation Cardiac: regular rate and rhythm, no murmurs noted Spine: normal Carotid arteries: negative bruit Extremities: no edema Lab Results Anesthesia Preop Results Results Anesthesia Widget: WBC 4.36 K/uL (4.8-10.8) L 05/12/21 Hgb 13.1 g/dL (12.0-16.0) 05/12/21 Hct 40.6 % (37-47) 05/12/21 Plt 261 K/uL (130-400) 05/12/21 Na 138 mmol/L (136-145) 05/12/21 K 4.0 mmol/L (3.5-5.1) 05/12/21 Cl 106 mmol/L (98-107) 05/12/21 CO2 29 mmol/L (21-32) 05/12/21 BUN 19 mg/dl (7-18) H 05/12/21 Creat 0.72 mg/dl (0.6-1.2) 05/12/21 Glucose Level 86 mg/dl (70-99) 05/12/21 PT 9.9 Seconds (9.0-12.0) 05/12/21 PTT 25.6 Seconds (21.0-31.0) 05/18/21 INR 1.0 (0.9-1.1) 05/12/21 HA1c 5.6 % (4.5-5.6) 05/12/21 Urine Color Yellow 05/12/21 Urine Appearance Clear (Clear) 05/12/21 Urine pH 6.0 (4.5-7.5) 05/12/21 Urine Specific [place] 1.016 (1.000-1.030) 05/12/21 Urine Protein Negative (Negative) 05/12/21 Urine Glucose (UA) Negative (Negative) 05/12/21 Urine Ketones Negative (Negative) 05/12/21 Urine Blood Negative (Negative) 05/12/21 Urine Nitrite Negative (Negative) 05/12/21 Urine Bilirubin Negative (Negative) 05/12/21 Urine Urobilinogen Negative (Negative) 05/12/21 Urine Leukocyte Esterase Negative (Negative) 05/12/21 Blood Type A Positive 05/18/21 Antibody Screen NEGATIVE 05/18/21 Testing Electrocardiogram Date: 05/12/21 Findings: + SB @ (76)
[2021-06-03] MEDS ORDERED: TRANEXAMIC ACID 1,000 MG **IV Pre-op IV SCH (06:00)
[2021-06-03] MEDS ORDERED: ROPIVACAINE 0.5% HCL/PF 150 MG, BUPIVACAINE 0.75% MPF 20 ML, EPINEPHrine 0.15 MG, Ketor... INFIL SCH (06:00)
[2021-06-03] MEDS ORDERED: traMADol HCL 50 MG TABLET PO SCH (06:00)
[2021-06-03] MEDS ORDERED: ceFAZolin 2000MG 2,000 MG/15 ML SYR IV SCH (06:00)
[2021-06-03] MEDS ORDERED: LR 60ML/HR IV SCH (06:00)
[2021-06-03] MEDS ORDERED: dexAMETHasone 4 MG TAB PO SCH (06:00)
[2021-06-03] MEDS ORDERED: FAMOTIDINE 20 MG TAB PO SCH (06:00)
[2021-06-03] MEDS ORDERED: ACETAMINOPHEN 500 MG TAB PO SCH (06:00)
[2021-06-03] MEDS ORDERED: TRANEXAMIC ACID 1,000 MG **IV Intra-op IV SCH (06:00)
[2021-06-03] MEDS ORDERED: METOCLOPRAMIDE HCL 10 MG TABLET PO SCH (06:00)
[2021-06-03] MEDS ORDERED: LR 500ML BOLUS, THEN 15ML/HR IV SCH (06:00)
[2021-06-03] MEDS ORDERED: Scopolamine 1 MG TDSY TD SCH (06:00)
[2021-06-03] MEDS ORDERED: BUPIVACAINE 0.5 % 5 MG/1 ML PF 10ML VIAL ONE (06:20)
[2021-06-03] MEDS ORDERED: ORTHO JOINT ANESTHETIC ONE (06:33)
[2021-06-03] MEDS ORDERED: MIDAZOLAM HCL 1 MG/ML 2ML VIAL ONE (06:40)
[2021-06-03] MEDS ORDERED: fentaNYL citrate 100 MCG/2 ML VIAL ONE (06:41)
--- NOTE | 2021-06-03 06:43 | History & Physical Bridge Note ---
Date of Service June 03, 2021 History & Physical Bridge Note I have examined the patient, reviewed the History & Physical and in the interval since the performance of the History & Physical I have noted the following changes of clinical significance: no changes noted
[2021-06-03] MEDS ORDERED: PROPOFOL IV EMULSION 10 MG/ML 20 ML VIAL IV ONE (06:46)
[2021-06-03] MEDS ORDERED: ONDANSETRON INJ 2 MG/ML 2 ML VIAL ONE (06:46)
[2021-06-03] MEDS ORDERED: LIDOCAINE 2% 2 ML VIAL/AMP(20MG/ML) INFIL ONE (06:46)
[2021-06-03] MEDS ORDERED: ATROPINE SULFATE 0.1 MG/ML 10ML SYR IV PRN (07:03)
[2021-06-03] MEDS ORDERED: ePHEDrine sulfate 50 MG/ML AMP IV PRN (07:03)
[2021-06-03] MEDS ORDERED: HYDROmorphone INJ 2 MG/ML SYR/VIAL IV PRN (07:03)
[2021-06-03] MEDS ORDERED: ONDANSETRON INJ 2 MG/ML 2 ML VIAL IV PRN ×2 (07:03→09:53)
[2021-06-03] MEDS ORDERED: fentaNYL citrate 100 MCG/2 ML VIAL IV PRN (07:03)
[2021-06-03] MEDS ORDERED: ePHEDrine sulfate 50 MG/ML SYR ONE (07:32)
--- NOTE | 2021-06-03 08:43 | Operative Report ---
Post Operative Report Pre & Post Diagnosis Operation Date: 06/03/21 07:00 Pre-Op Diagnosis: Left Hip Osteoarthritis Post-Op Diagnosis: Left Hip Osteoarthritis I identified the patient and participated in the time-out.: Yes Procedure Operation Date: 06/03/21 07:00 Actual Procedures p Left Total Hip Arthroplasty, Uncemented(Left) - Isaiah Hollingsworth MD Surgeon Isaiah Hollingsworth MD Bench Press Operator Quyen Ledezma PA-C. No resident or fellow was available to assist. Estimated Blood Loss 100 Findings Consistent with Post-Op Diagnosis Specimens Left femoral head Anesthesia Type Spinal MAC Complications none Indications 76-year-old female with left hip arthritis refractory to conservative management. She is status post a right total hip arthroplasty by myself with a good result in the past. After reviewing all the risks and benefits of surgery she elected to proceed. All questions were answered. Informed consent was signed. Description of Procedure Patient was identified in the preoperative holding area and the surgical site, left hip, was marked. A spinal anesthetic was placed, then the patient was brought back to the main operating room, placed in the operating table and moved into the lateral decubitus position. Axillary roll was placed. All bony prominences were padded. Perioperative antibiotics and tranexamic acid 1 gram IV were administered. Operative extremity was prepped and draped in the normal sterile fashion. Prior to incision a multidisciplinary timeout was called. All in the room were in agreement. We began by making an incision for a posterior approach to the hip. We dissected down through subcutaneous tissues to the level of the fascia. The fascia was incised in line with the incision. Charnley bow was placed. The trochanteric bursa was excised. The piriformis and short external rotators were dissected off the posterior aspect of the hip. A box cut was made in the capsule. The femoral head was dislocated. The femoral neck cut was made at our preoperative template. The acetabulum was then exposed. The labrum was sharply excised. Contents of the cotyloid fossa were removed with electrocautery. We then began reaming at a size 8 mm less than our preoperative template. We reamed up by 1 [address] the way up to a size 50 mm cup. This gave us good bleeding cancellus bone circumferentially. The acetabulum was then irrigated out and dried. The real [place] Gription cup was then impacted down into position with 45 degrees of lateral opening and 25 degrees of anteversion. A single cancellous bone screw was placed up into the ilium. Excellent fixation was obtained. An Altrx polyethylene liner for a 32 mm femoral head was then impacted into the shell. The locking mechanism was checked to ensure that it had engaged which it had. Next we turned our attention to the femur. The lateral neck was removed with a box osteotome. Intramedullary guide was used followed by the lateralizing reamer. We then reamed up to a size 4 Sac stem. We then broached all the way up to a size 4. We began trialing with a high offset neck and a +1 head. Hip was reduced. Leg lengths were symmetric. The hip was stable in extension and external rotation, and stable in the sleeper position. At 90 degrees of hip flexion the hip could be internally rotated 45 degrees before levering out of the cup. I was very happy with the stability exam. Therefore the hip was dislocated and the femoral trial was removed. The femoral canal was irrigated and dried. The real size 4 high offset Sac femoral stem was opened up. This was impacted down into position. It sat at the same level as the femoral trial. Therefore the 32 mm ceramic femoral head with a +1 mm offset was opened up and gently impacted down onto the trunnion. The hip was atraumatically reduced. Another 1 gram of IV tranexamic acid was started prior to closure. The wound was irrigated out with sterile Betadine solution. The periarticular injection cocktail was then placed. The short external rotators, piriformis, and posterior capsule were repaired through drill holes in the greater trochanter using #2 Vicryl. The fascia was run with a looped #1 PDS. The subcutaneous layer was closed with #1 PDS. The dermal layer was closed with 2-0 Vicryl. Zip line was used for the skin followed by a Silverlon dressing. A compressive dressing was then placed. The patient was then rolled supine. Leg lengths were rechecked and were symmetric. An abduction pillow was placed. Sedation was lifted and the patient was transferred to recovery room in stable condition. Summary of implants: Depuy Scott Bar Gription Acetabular Shell Sector Cup, 50 mm outer diameter Scott Bar Cancellous bone screw, 6.5 x 35 mm Scott Bar Altrx Polyethylene Acetabular Liner, Neutral, with a 32 mm inner diameter DePuy Sac Femoral stem with Porocoat, 12/14 taper, size 4 high offset 32 mm ceramic femoral head with +1 offset Postoperative course: Patient will be admitted to the hospital from the recovery room. Patient will be weightbearing as tolerated with posterior hip precautions. Aspirin for DVT prophylaxis I attest to the content of the Intraoperative Record and any orders documented therein. Any exceptions are noted below.
--- NOTE | 2021-06-03 08:53 | Operative Report ---
Post Operative Report Pre & Post Diagnosis Operation Date: 06/03/21 07:00 Pre-Op Diagnosis: Left Hip Osteoarthritis Post-Op Diagnosis: Left Hip Osteoarthritis I identified the patient and participated in the time-out.: Yes Procedure Operation Date: 06/03/21 07:00 Actual Procedures p Left Total Hip Arthroplasty, Uncemented(Left) - Isaiah Hollingsworth MD Surgeon Isaiah Hollingsworth MD Slack Cooper Quyen Ledezma PA-C. No resident or fellow was available to assist. Estimated Blood Loss 100 Findings Consistent with Post-Op Diagnosis DJD left hip Specimens Bone and soft tissue Drains None Anesthesia Type Spinal MAC Disposition Accompanied Patient To Recovery: Yes Description of Procedure Patient was taken to the operating room and placed under IV sedation with spinal anesthesia. She was positioned in the right lateral decubitus position. Time out was performed. She was prepped and draped in routine sterile fashion. I was present during the entire case and assisted with positioning, soft tissue retraction, implantation of hardware, trialing of implantation, implantation of hardware, closure and dressings. Please see Dr. Hollingsworth's operative report for further details regarding today's procedure. She was awakened and transferred to the recovery room in stable condition. I attest to the content of the Intraoperative Record and any orders documented therein. Any exceptions are noted below.
--- NOTE | 2021-06-03 09:15 | Anesthesiology Progress Note ---
Date of Service June 03, 2021 Anesthesia Post Procedure Vital Signs Vital Signs: Temp Pulse Pulse Resp BP Pulse Ox 06/03/21 09:10 65 14 123/54 L 97 06/03/21 09:00 66 14 127/58 L 95 06/03/21 08:50 36.6 C 71 14 122/60 99 06/03/21 06:45 143/76 H 06/03/21 06:07 36.4 C L 70 18 193/80 H 95 Pain Intensity Left Hip: Pain Intensity: 5 Transfer of Care Handoff Completed per policy Notes Mental Status: alert / awake / arousable and participated in evaluation Patient Amnestic to Procedure: Yes Nausea / Vomiting: adequately controlled Pain: adequately controlled Airway Patency, RR, SpO2: stable & adequate BP & HR: stable & adequate Hydration State: stable & adequate Anesthetic Complications: no major complications apparent and Pt Satisfied with anesthetic care
[2021-06-03] MEDS ORDERED: NALOXONE HCL 0.4 MG/1 ML VIAL/CARP IV PRN (09:53)
[2021-06-03] MEDS ORDERED: bisacodyL 10 MG SUPP PR PRN (09:53)
[2021-06-03] MEDS ORDERED: SODIUM CHLORIDE 0.9% 1000ML 1,000 ML IV SCH (09:53)
[2021-06-03] MEDS ORDERED: METOCLOPRAMIDE HCL INJ 5 MG/ML 2 ML VIAL IV PRN (09:53)
[2021-06-03] MEDS ORDERED: HYDROmorphone INJ 0.5 MG/0.5 ML SYR IV PRN (09:53)
[2021-06-03] MEDS ORDERED: ALUMINUM/MAGNESIUM SUSP 30 ML UDC PO PRN (09:53)
[2021-06-03] MEDS ORDERED: MAGNESIUM HYDROXIDE SUSP 30 ML UDC PO PRN (09:53)
[2021-06-03] MEDS ORDERED: VERAPAMIL HCL 180 MG TABCR PO ONE (10:45)
[2021-06-03] MEDS ORDERED: DOCUSATE SODIUM 100 MG CAP PO ONE (10:45)
[2021-06-03] MEDS: MULTIVITAMIN TAB PO SCH (11:46)
[2021-06-03] MEDS: CITALOPRAM 20 MG TAB PO SCH (11:47)
[2021-06-03] MEDS: ASPIRIN 81 MG ECTAB PO SCH ×2 (11:47→21:47)
[2021-06-03] MEDS: PANTOprazole 40 MG TAB PO SCH (11:47)
[2021-06-03] MEDS: KETOROLAC TROMETHAMINE 15 MG/ML VIAL IV SCH ×3 (11:52→23:50)
--- NOTE | 2021-06-03 13:20 | XRay Report ---
XR hip 1V LT w pelvis CLINICAL HISTORY: IN PACU - A/P PELVIS and LATERAL HIP COMPARISON: May 12, 2021 DISCUSSION: Interval placement of a prosthetic left hip joint. Prosthetic left hip joint is in expected position. There is subcutaneous emphysema . Stable position of the right prosthetic hip joint. Degenerative changes of pubis symphysis. IMPRESSION: Postoperative changes as above. ACT 112: Negative or not required by law. The above report was generated using voice recognition software. It may contain grammatical, syntax o r spelling errors. Electronically signed by: Kirsty Michelle DO 06/03/2021 1:18 PM
[2021-06-03] MEDS: ACETAMINOPHEN 500 MG TAB PO SCH ×2 (13:50→21:47)
[2021-06-03] MEDS: ceFAZolin 2000MG 2,000 MG/15 ML SYR IV SCH ×2 (13:51→23:50)
[2021-06-03] MEDS ORDERED: Nursing to Pharmacy Communication SCH (14:30)
[2021-06-03] MEDS ORDERED: rOPINIRole HCL 1 MG TABLET PO SCH ×2 (15:00→21:00)
[2021-06-03] MEDS: Scopolamine CHECK PATCH PLACEMENT SCH ×2 (15:50→23:51)
[2021-06-03] MEDS: oxyCODONE HCL IR 5 MG TAB (IMMEDIATE RELEASE) PO PRN (15:54)
--- NOTE | 2021-06-03 16:34 | Discharge Summary ---
Date of Service June 03, 2021 Discharge Data Procedures Performed Operation Date: 06/03/21 07:00 Actual Procedures p Left Total Hip Arthroplasty, Uncemented(Left) - Isaiah Hollingsworth MD Hospital Course (1) Osteoarthritis of left hip: Patient was admitted to [facility] on June 03, 2021 after undergoing an elective left total hip arthroplasty by Dr. Isaiah andrea. Her surgery was performed with spinal anesthesia and IV sedation. She tolerated her surgery well without any intraoperative complications. Postoperative x-rays performed in the recovery room showed a stable prosthesis in her left hip. She was allowed out of bed, weight-bear as tolerated on the left hip with the assistance of a walker. She was provided with posterior hip precautions. Regular diet was provided. Her home medications were continued appropriately. Physical therapy and Occupational Therapy consult was placed. She was given IV Dilaudid, Toradol, oxycodone and Tylenol for postoperative pain management. On postoperative day 1, patient's dressings were removed. Silverlon dressing remained in place. Dressing was clean and dry. Intact. She was seen and evaluated by physical therapy and Occupational Therapy and was deemed safe for discharge. She was seen by case management and home health with physical therapy was arranged. Discharge instructions were provided. She will continue her FLORENITNO stockings x2 weeks, aspirin 81 mg for twice daily for DVT prophylaxis, oxycodone alternated with Tylenol for postoperative pain control while at home. Prescriptions were sent to her pharmacy. Her vital signs remained stable during her inpatient stay. Her labs were stable as well. She developed no postoperative complications. She was discharged to her home in stable condition with her on June 04, 2021.
[2021-06-03] MEDS ORDERED: ATORVASTATIN 20 MG TAB PO SCH (21:00)
[2021-06-03] MEDS ORDERED: SENNA 8.6 MG TAB PO SCH (21:00)
[2021-06-03] MEDS ORDERED: LOSARTAN POTASSIUM 50 MG TAB PO SCH (21:00)
[2021-06-03] MEDS: VERAPAMIL HCL 180 MG TABCR PO SCH (21:47)
[2021-06-03] MEDS: DOCUSATE SODIUM 100 MG CAP PO SCH (21:48)
[2021-06-04] MEDS: ACETAMINOPHEN 500 MG TAB PO SCH ×2 (05:28→12:53)
[2021-06-04] MEDS: KETOROLAC TROMETHAMINE 15 MG/ML VIAL IV SCH (05:29)
[2021-06-04 06:32] LABS: Hematocrit (blood only) 34.8 % (37-47); Hemoglobin 11.2 g/dL (12.0-16.0); Immature Granulocytes # (auto) 0.01 K/uL (0.00-0.02); Immature Granulocytes % (auto) 0.1 %; Lymphocytes # (auto) 0.75 K/uL (1.2-3.4); Lymphocytes % (auto) 8.4 %; Mean Corpuscular Hemoglobin 31.5 pg (25-34); Mean Corpuscular Hgb Conc 32.2 g/dL (32-36); Mean Platelet Volume 9.1 fL (7.4-10.4); Monocytes # (auto) 0.81 K/uL (0.11-0.59); Monocytes % (auto) 9.1 %; Neutrophils # (auto) 7.34 K/uL (1.4-6.5); Neutrophils % (auto) 82.4 %; Platelet Count 201 K/uL (130-400); RDW Coefficient of Variation 14.1 % (11.5-14.5); RDW Standard Deviation 51.5 fL (36.4-46.3); Red Blood Count 3.55 M/uL (4.2-5.4); White Blood Count 8.91 K/uL (4.8-10.8)
[2021-06-04 07:07] LABS: BUN Creatinine Ratio 24.1 (10-20); Calcium 8.7 mg/dl (8.5-10.1); Creatinine Clr Calc Pharmacy 62.5 ml/min; Est GFR (African American) 80.5 ml/min; Est GFR (Non-African American) 69.5 ml/min; Potassium 4.2 mmol/L (3.5-5.1)
[2021-06-04] MEDS: VERAPAMIL HCL 180 MG TABCR PO SCH (07:58)
[2021-06-04] MEDS ORDERED: dexAMETHasone 4 MG TAB PO SCH (08:00)
[2021-06-04] MEDS: DOCUSATE SODIUM 100 MG CAP PO SCH (08:01)
[2021-06-04] MEDS: MULTIVITAMIN TAB PO SCH (08:02)
[2021-06-04] MEDS: ASPIRIN 81 MG ECTAB PO SCH (08:02)
[2021-06-04] MEDS: Scopolamine CHECK PATCH PLACEMENT SCH (08:02)
[2021-06-04] MEDS: PANTOprazole 40 MG TAB PO SCH (08:02)
[2021-06-04] MEDS: CITALOPRAM 20 MG TAB PO SCH (08:02)
[2021-06-04] MEDS: oxyCODONE HCL IR 5 MG TAB (IMMEDIATE RELEASE) PO PRN (08:04)
--- NOTE | 2021-06-04 08:25 | Orthopedic Progress Note ---
Date of Service June 04, 2021 Assessment & Plan (1) Status post total hip replacement, left: Plan: Patient was seen this morning in conjunction with Dr. Hollingsworth, who also evaluated the patient. She feels ready for discharge. Patient will be sent home after PT/OT today. Continue ambulating with her walker. Weight-bear as tolerated. Postop prescriptions will be sent to her pharmacy. Written discharge instructions were provided. Follow-up in the office in 2 weeks as scheduled for staple removal. External dressings were removed today by me. Silverlon dressing remained in place, and should be left in place until she is seen in the office. She may shower with the Silverlon in place, but should not soak or submerge her incision. Admission and Anticipated Discharge Date Admission Date: June 03, 2021 Subjective Patient is seen in her room this morning. States she slept fairly well. She has no pain at this point. She feels ready for discharge to home. Denies any chest pain, shortness of breath, nausea, vomiting, or abdominal pain. She is pleased with her outcome thus far. She has been using her abduction wedge as directed. Review of Systems Review of Systems: Unchanged from yesterday. Physical Exam Physical Exam: General: Well-developed, well-nourished, elderly female, in no acute distress. Laying on the bed. Alert and oriented. Conversive. Skin: Warm dry with good turgor. No rashes or lesions. Minimal ecchymosis at her left hip. No erythema. No significant edema at the hip. Musculoskeletal: Postsurgical dressings were intact. Upon removal, there is no strikethrough from bleeding. Silverlon dressing is in place. It is dry. She has intact motor function to the toes and ankle. She is able to dorsiflex and plantarflex easily. She is able to set her quad and perform a straight leg raise. She rolls over onto her right side without difficulty. Neurologic: Gross sensation is intact across all aspects of the left leg by soft touch. Peripheral pulses are 2+. Results & Data ([facility]) Vital Signs (Past 12 Hours) Vital Signs Temp Pulse Resp BP BP Pulse Ox 06/04/21 07:28 36.8 C 56 L 17 159/77 H 92 06/03/21 22:38 36.8 C 56 L 16 165/83 H 94 Laboratory Results Labs today show a white count of 8.9. Hemoglobin 11.2, hematocrit 34.8. Sodium 135, potassium 4.2, chloride 106, BUN 20, creatinine 0.83. Glucose 127.
== END 2021-06-04 15:37 | disposition home health service (06) ==
LOC: ASU 05:09 → 3W 05:09

== ENCOUNTER 2021-06-09 12:17 | Observation (INO) ==
--- NOTE | 2021-06-09 13:47 | XRay Report ---
XR hip LT 2V w pelvis CLINICAL HISTORY: pain, s/p L hip replacement COMPARISON: Pelvis and left hip radiographs June 03, 2021. FINDINGS: Alignment of the bilateral total hip arthroplasties is anatomic. No periprosthetic fractur e or lucency adjacent to left hip arthroplasty is noted. Degenerative changes at the symphysis pubis are incidentally noted. IMPRESSION: Expected findings following total left hip arthroplasty. No periprosthetic fracture or yandel cency. ACT 112: Negative or not required by law. Electronically signed by: Narendra Moreno M.D. 06/09/2021 1:46 PM
[2021-06-09] MEDS ORDERED: SODIUM CHLORIDE 0.9% 1000ML 1,000 ML IV ONE (14:07)
[2021-06-09] MEDS ORDERED: MoRPHine SULFATE 2 MG/ML CARP IV STA ×2 (14:07→17:17)
[2021-06-09] MEDS ORDERED: ACETAMINOPHEN 1,000 MG/100 ML VIAL IV STA (14:07)
--- NOTE | 2021-06-09 14:32 | XRay Report ---
XR chest 1V portable HISTORY: 76 years-old Female Chest Pain acute atypical chest pain COMPARISON: Chest radiograph 10/02/2018 TECHNIQUE: Supine AP view of the chest FINDINGS: Cardiomediastinal and hilar silhouettes are within normal limits. There is no pneumothorax, pleural e ffusion, airspace consolidation or overt pulmonary edema. Eventration of the right hemidiaphragm. Spo ndylitic spurring of the spine. IMPRESSION: No acute process. ACT 112: Negative or not required by law. The above report was generated using voice recognition software. It may contain grammatical, syntax o r spelling errors. Electronically signed by: Vlad Herrera M.D. 06/09/2021 2:30 PM
[2021-06-09 14:52] LABS: Basophils # (auto) 0.02 K/uL (0-0.2); Basophils % (auto) 0.2 %; Eosinophils # (auto) 0.06 K/uL (0-0.5); Eosinophils % (auto) 0.6 %; Hemoglobin 11.2 g/dL (12.0-16.0); Immature Granulocytes # (auto) 0.06 K/uL (0.00-0.02); Immature Granulocytes % (auto) 0.6 %; Lymphocytes # (auto) 0.91 K/uL (1.2-3.4); Lymphocytes % (auto) 9.1 %; Mean Corpuscular Hemoglobin 31.5 pg (25-34); Mean Corpuscular Volume 98.3 fL (80-100); Monocytes # (auto) 0.89 K/uL (0.11-0.59); Monocytes % (auto) 8.9 %; Neutrophils # (auto) 8.01 K/uL (1.4-6.5); Neutrophils % (auto) 80.6 %; Platelet Count 301 K/uL (130-400); RDW Coefficient of Variation 14.2 % (11.5-14.5); RDW Standard Deviation 51.2 fL (36.4-46.3); Red Blood Count 3.56 M/uL (4.2-5.4); White Blood Count 9.95 K/uL (4.8-10.8)
[2021-06-09 15:11] LABS: Alanine Aminotransferase 22 U/L (12-78); Albumin Level 2.9 gm/dl (3.4-5.0); Aspartate Aminotransferase 18 U/L (15-37); BUN Creatinine Ratio 21.5 (10-20); Bilirubin Direct 0.2 mg/dl (0-0.2); Blood Urea Nitrogen 15 mg/dl (7-18); Carbon Dioxide 31 mmol/L (21-32); Chloride 100 mmol/L (98-107); Creatinine Clr Calc Pharmacy 77.9 ml/min; Est GFR (African American) 99.9 ml/min; Est GFR (Non-African American) 86.2 ml/min; Glucose 111 mg/dl (70-99); Lipase 96 U/L (73-393); Magnesium 2.1 mg/dl (1.8-2.4); Potassium 4.1 mmol/L (3.5-5.1); Sodium 136 mmol/L (136-145)
[2021-06-09 15:19] LABS: Alkaline Phosphatase 70 U/L (45-117); Bilirubin,Total 0.9 mg/dl (0.2-1); Phosphorus 3.7 mg/dl (2.5-4.9); Total Protein 5.9 gm/dl (6.4-8.2); Troponin I < 0.015 ng/ml (0-0.045)
--- NOTE | 2021-06-09 17:24 | Emergency Department Note ---
Impression & Plan Status post total hip replacement, left, Intramuscular hematoma, Left leg pain ED Provider Note NAME: ROSE MARIE SIEGEL AGE: 76 SEX: F ARRIVES VIA: Ambulance INFORMANT: Patient ED PROVIDER(S): Elliott Moreno MD CHIEF COMPLAINT: Left hip pain. PLAN: Disposition: Admit MEDICAL DECISION MAKING: The patient is a 76-year-old woman with a past medical history of hypertension, hyperlipidemia, restless leg syndrome, osteoarthritis who is status post left DOUGLAS on 06/03 who presents emergency department with acute onset left hip pain where she reports she is unable to ambulate as she has been doing this week and was unable to even get into the EMS stretcher which without being placed on a backboard. She denies any recent falls. She denies any recent fevers, cough, congestion, GI symptoms. On arrival the patient is uncomfortable but no distress, afebrile stable vital signs. On exam she has no overt deformity. Her incision site is clean dry and intact. Compartments are soft and nontender. There is no discoloration. Dista l PMS intact. Plain film was performed did not demonstrate any acute abnormality. However in the interim the patient did have acute flare of pain where she likely had a vasovagal episode with subsequent hypotension, lightheadedness, nausea which from which she did recover and feel improved after IV fluid hydration. EKG did not demonstrate acute ischemia. Chest x-ray negative for acute cardiopulmonary process. WBC and platelets within normal limits. H/H 11.2/35 similar to prior. Chemistry without metabolic acidosis. BUN/creatinine>20 consistent with patient's clinical dry appearance. Electrolytes and LFTs unremarkable. Troponin negative/undetectable. Lipase not elevated. TSH within normal limits. COVID-19 PCR was negative. Upon reevaluation patient was feeling improved however upon ambulatory trial patient again had a repeat flare of pain where she became lightheaded and nauseated. Thus, reasonable to proceed with admission for pain control, PT/OT and placement. I did review the case with the patient's surgeon Dr. Hollingsworth who evaluated the pateint at the [facility]. Appreciate recommendation for CT to exclude occult fracture in addition to US to r/o DVT. He will be available for inpatient team consultation. Case was discussed with Dr. Sparks, [facility] hospitalist, who will evaluate the patient for admission. CT subsequently negative for occult fx. Intramuscular hematoma noted. US negative for DVT. Triage Nursing notes reviewed and agree them. Prior medical records reviewed Vital Signs: reviewed and remarkable for no significant abnormalities. Differential diagnosis: Fracture, subluxation, dislocation, contusion, ligamentous injury, neurovascular, compartment syndrome, rhabdomyolysis, as well as other pathologies. ER treatment provided: See below. Diagnostics interpreted by me: ECG: NSR, 62 bpm, no ectopy, nonspecific ST abnormality, no overt ST elevation or depression. Cardiac Monitoring: An order for continuous cardiac monitoring was placed and demonstrated NSR, 62 bpm, no ectopy. Laboratory studies: See below. Imaging studies: See below. Consultation(s): Dr. Hollingsworth, orthopedic surgery. Dr. Sparks, [facility] hospitalist. HPI: The patient is a 76-year-old woman with a past medical history of hypertension, hyperlipidemia, restless leg syndrome, osteoarthritis who is s tatus post left DOUGLAS on 06/03 who presents emergency department with acute onset left hip pain where she reports she is unable to ambulate as she has been doing this week and was unable to even get into the EMS stretcher which without being placed on a backboard. She denies any recent falls. She denies any recent fevers, cough, congestion, GI symptoms. ROS: See above HPI for pertinent positives & negatives. A total of 10 systems reviewed and were otherwise negative. PAST MEDICAL HISTORY:See below. PAST SURGICAL HISTORY:See below. FAMILY HISTORY:See below. SOCIAL HISTORY:See below. HOME MEDICATIONS:See below. ALLERGIES:See below. VITALS:See below. PHYSICAL EXAMINATION: GENERAL: Awake, alert, uncomfortable-appearing, in no distress HENT: Normocephalic, atraumatic. Oropharynx with dry mucous membranes and otherwise unremarkable. EYES: Normal conjunctiva. Sclera non-icteric. NECK: Supple. No nuchal rigidity. FROM. No JVD. RESPIRATORY: Clear to auscultation. CARDIAC: Regular rate, normal rhythm. Extremities warm and well perfused. Pulses equal. ABDOMEN: Soft, non-distended. No tenderness to palpation. No rebound or guarding. No masses. RECTAL: Deferred. MUSCULOSKELETAL: Chest examination reveals no tenderness. The back is symmetrical on inspection without obvious abnormality. There is no CVA tenderness to palpation. No overt left hip deformity. Incision site is clean dry and intact. Compartments are soft and nontender. There is no discoloration. Distal PMS intact. LOWER EXTREMITIES: Calves are equal size bilaterally and non-tender. Scant BLE edema. No discoloration. NEURO: Normal sensorium. No sensory or motor deficits noted. SKIN: No rash or jaundice noted. Elliott Moreno MD Past Med/Surg History Medical History Arthritis Depression GERD (gastroesophageal reflux disease) controlled History of DVT (deep vein thrombosis) JUN 2020 Hypercholesterolemia Hypertension Intrinsic asthma stable; no recent issues Lichen sclerosus et atrophicus Obesity Primary localized osteoarthrosis of right hip Restless legs syndrome Stress incontinence in female Thyroid nodule "benign" Surgical History H/O abdominoplasty History of bronchoscopy with brushings (2013) d/t chronic cough (r/t aman inhibitor treatment) History of carpal tunnel release right (2016) left CTR + left middle trigger finger release (04/20/20): MAC at [facility] History of cataract surgery R/L (2011) History of colonoscopy History of esophagogastroduodenoscopy (EGD) History of total hip arthroplasty Right DOUGLAS (08/01/19): SAB at L3/L4 (x1 attempt) at [facility] LEFT DOUGLAS 05/2021 Hx of cholecystectomy Hx of hemorrhoidectomy Hx of tubal ligation S/P thyroid biopsy Family History Mother Myocardial infarction Aunt Breast cancer Maternal Father Colorectal cancer Brother Colorectal cancer Sister Family history of diabetes mellitus Denies family history of Ovarian cancer Social History Smoking Status: Former smoker Age Started Using Tobacco: 18; Age Quit Using Tobacco: 22; packs per day: 1; Years Smoked: 4; Smoking End Date: QUIT WHEN PATIENT WAS 22; Second Hand Exposure: No; Do You Dip or Chew Tobacco: No; Tobacco Cessation Education Requested by Patient: No Hx Alcohol Use: Yes Alcohol type: beer, wine and hard liquor Hx Substance Use: No Preferred Language: Serbian Communication Ability: Effective [employer] Required: No Beliefs That Will Affect Care: None marital status: Current Living Situation: Spouse Current Living Situation Comment: Other Information That Helps Us Care for You: No Feels Safe at Home: Yes Safety Concerns: Feels Safe At This Time Assistive Devices: Glasses Allergies Allergies Allergy/AdvReac Type Severity Reaction Status Date / Time Penicillins Allergy Intermediate Itchiness, Verified 06/09/21 17:00 lips tingling Sulfa (Sulfonamide Allergy Intermediate Itchiness, Verified 06/09/21 17:00 Antibiotics) lips tingling Home Meds Home Medications Medication Instructions Recorded Confirmed cranberry 500 mg capsule 500 mg PO QAM 03/07/19 06/09/21 verapamil 180 mg tablet,extended 180 mg PO BID 03/07/19 06/09/21 release pantoprazole 40 mg tablet,delayed 40 mg PO QAM 07/25/19 06/09/21 release ropinirole 1 mg tablet 1 mg PO DAILY@1500 07/25/19 06/09/21 ropinirole 1 mg tablet 1 mg PO HS 07/25/19 06/09/21 atorvastatin 20 mg tablet 20 mg PO HS 04/10/20 06/09/21 citalopram 20 mg tablet 20 mg PO QAM 04/10/20 06/09/21 losartan 50 mg tablet 50 mg PO HS 04/10/20 06/09/21 acetaminophen 500 mg tablet 1,000 mg PO Q8 06/09/21 06/09/21 (Tylenol Extra Strength) clobetasol 0.05 % topical ointment 1 applic TOP [id number] 06/09/21 06/09/21 conjugated estrogens 0.625 mg/gram 0.625 mg PV DIRECTED 06/09/21 06/09/21 vaginal cream (Premarin) Previous Rx's Medication Instructions Recorded aspirin 81 mg tablet,delayed 81 mg PO BID 30 Days #60 tab 06/04/21 release diclofenac sodium 75 mg 75 mg PO BID 30 Days #60 tab 06/04/21 tablet,delayed release oxycodone 5 mg tablet 5 - 10 mg PO Q4H PRN #24 tab 06/04/21 Results & Data (ED) Vital Signs Vital Signs - 24 hr 06/09/21 12:07 06/09/21 13:51 06/09/21 14:00 Pulse Rate 68 Pulse Rate [Apical] 61 62 Pulse Rate from SpO2 Sensor Pulse Rhythm Regular Pulse Rhythm [Apical] Pulse Strength Normal Pulse Strength [Apical] Respiratory Rate 16 17 16 Respiratory Effort / Characteristics Spontaneous Respiratory Depth Normal Respiratory Pattern Regular Blood Pressure 125/62 Blood Pressure [Right Arm] 125/62 80/39 L 90/46 L Blood Pressure Mean 83 Blood Pressure Mean [Right Arm] 83 52 60 Blood Pressure Position Lying Blood Pressure Position [Right Arm] Lying Semi-fowlers Semi-fowlers Pulse Oximetry 98 96 93 Oxygen Delivery Method Room Air Room Air Room Air Oxygen Flow Rate Sepsis Recent Fever Within 48 Hours No Sepsis New/Unexplained Change in Mental Status No Sepsis Action Taken by Nursing No Action Required Oxygen Flow Rate - Titration Pulse Oximetry Post Tiitration 06/09/21 14:07 06/09/21 14:13 06/09/21 14:26 Pulse Rate 63 Pulse Rate [Apical] 64 64 67 Pulse Rate from SpO2 Sensor Pulse Rhythm Regular Pulse Rhythm [Apical] Regular Pulse Strength Pulse Strength [Apical] Normal Respiratory Rate 18 20 18 Respiratory Effort / Characteristics Spontaneous Respiratory Depth Normal Respiratory Pattern Regular Blood Pressure Blood Pressure [Right Arm] 80/39 L 80/44 L 101/59 L Blood Pressure Mean Blood Pressure Mean [Right Arm] 52 56 73 Blood Pressure Position Blood Pressure Position [Right Arm] Lying Lying Pulse Oximetry 93 92 Oxygen Delivery Method Room Air Room Air Oxygen Flow Rate Sepsis Recent Fever Within 48 Hours Sepsis New/Unexplained Change in Mental Status Sepsis Action Taken by Nursing Oxygen Flow Rate - Titration Pulse Oximetry Post Tiitration 06/09/21 15:00 06/09/21 15:30 06/09/21 15:31 Pulse Rate Pulse Rate [Apical] 65 66 Pulse Rate from SpO2 Sensor Pulse Rhythm Pulse Rhythm [Apical] Regular Regular Pulse Strength Pulse Strength [Apical] Normal Normal Respiratory Rate 16 16 Respiratory Effort / Characteristics Spontaneous Spontaneous Respiratory Depth Normal Normal Respiratory Pattern Regular Regular Blood Pressure Blood Pressure [Right Arm] 112/55 L 113/55 L Blood Pressure Mean Blood Pressure Mean [Right Arm] 74 74 Blood Pressure Position Blood Pressure Position [Right Arm] Lying Lying Pulse Oximetry 98 88 L 98 Oxygen Delivery Method Room Air Room Air Nasal Cannula Oxygen Flow Rate 0 2 Sepsis Recent Fever Within 48 Hours Sepsis New/Unexplained Change in Mental Status Sepsis Action Taken by Nursing Oxygen Flow Rate - Titration 2 Pulse Oximetry Post Tiitration 99 06/09/21 16:00 06/09/21 17:20 06/09/21 18:00 Pulse Rate Pulse Rate [Apical] 66 80 78 Pulse Rate from SpO2 Sensor Pulse Rhythm Pulse Rhythm [Apical] Regular Pulse Strength Pulse Strength [Apical] Normal Respiratory Rate 17 18 19 Respiratory Effort / Characteristics Spontaneous Respiratory Depth Normal Respiratory Pattern Regular Blood Pressure Blood Pressure [Right Arm] 120/60 111/68 138/62 Blood Pressure Mean Blood Pressure Mean [Right Arm] 80 82 87 Blood Pressure Position Blood Pressure Position [Right Arm] Lying Lying Pulse Oximetry 99 93 Oxygen Delivery Method Nasal Cannula Room Air Oxygen Flow Rate 2 Sepsis Recent Fever Within 48 Hours Sepsis New/Unexplained Change in Mental Status Sepsis Action Taken by Nursing Oxygen Flow Rate - Titration Pulse Oximetry Post Tiitration 06/09/21 19:36 Pulse Rate 75 Pulse Rate [Apical] Pulse Rate from SpO2 Sensor 75 Pulse Rhythm Pulse Rhythm [Apical] Pulse Strength Pulse Strength [Apical] Respiratory Rate 20 Respiratory Effort / Characteristics Respiratory Depth Respiratory Pattern Blood Pressure 123/72 Blood Pressure [Right Arm] Blood Pressure Mean 89 Blood Pressure Mean [Right Arm] Blood Pressure Position Blood Pressure Position [Right Arm] Pulse Oximetry 100 Oxygen Delivery Method Oxygen Flow Rate Sepsis Recent Fever Within 48 Hours Sepsis New/Unexplained Change in Mental Status Sepsis Action Taken by Nursing Oxygen Flow Rate - Titration Pulse Oximetry Post Tiitration Laboratory Data Attestation: I reviewed the patient's lab results. Result diagrams: 06/09/21 14:39 06/09/21 14:39 Lab Results 06/09/21 06/09/21 06/09/21 Range/Units 14:39 14:39 14:39 WBC 9.95 (4.8-10.8) K/uL RBC 3.56 L (4.2-5.4) M/uL Hgb 11.2 L (12.0-16.0) g/dL Hct 35.0 L (37-47) % MCV 98.3 (80-100) fL MCH 31.5 (25-34) pg MCHC 32.0 (32-36) g/dL RDW Std Deviation 51.2 H (36.4-46.3) fL RDW Coeff of Stephie 14.2 (11.5-14.5) % Plt Count 301 (130-400) K/uL MPV 9.0 (7.4-10.4) fL Immature Gran % (Auto) 0.6 % Neut % (Auto) 80.6 % Lymph % (Auto) 9.1 % [place] % (Auto) 8.9 % Eos % (Auto) 0.6 % Baso % (Auto) 0.2 % Neut # (Auto) 8.01 H (1.4-6.5) K/uL Lymph # (Auto) 0.91 L (1.2-3.4) K/uL [place] # (Auto) 0.89 H (0.11-0.59) K/uL Eos # (Auto) 0.06 (0-0.5) K/uL Baso # (Auto) 0.02 (0-0.2) K/uL Immature Gran # (Auto) 0.06 H (0.00-0.02) K/uL Sodium 136 (136-145) mmol/L Potassium 4.1 (3.5-5.1) mmol/L Chloride 100 (98-107) mmol/L Carbon Dioxide 31 (21-32) mmol/L Anion Gap 5.0 (3-11) BUN 15 (7-18) mg/dl Creatinine 0.68 (0.6-1.2) mg/dl Est Cr Clr Drug Dosing 77.9 ml/min Est GFR ( Amer) 99.9 ml/min Est GFR (Non-Af Amer) 86.2 ml/min BUN/Creatinine Ratio 21.5 H (10-20) Glucose 111 H (70-99) mg/dl Calcium 9.0 (8.5-10.1) mg/dl Phosphorus 3.7 (2.5-4.9) mg/dl Magnesium 2.1 (1.8-2.4) mg/dl Total Bilirubin 0.9 (0.2-1) mg/dl Direct Bilirubin 0.2 (0-0.2) mg/dl AST 18 (15-37) U/L ALT 22 (12-78) U/L Alkaline Phosphatase 70 (45-117) U/L Troponin I < 0.015 (0-0.045) ng/ml Total Protein 5.9 L (6.4-8.2) gm/dl Albumin 2.9 L (3.4-5.0) gm/dl Globulin 3.0 (2.5-4.0) gm/dl Albumin/Globulin Ratio 1.0 (0.9-2) Lipase 96 (73-393) U/L TSH 2.710 (0.300-4.500) uIu/ml COVID-19 Eval Order Covid19 at [facility] SARS-CoV-2 (PCR) (Negative) 06/09/21 Range/Units 14:39 WBC (4.8-10.8) K/uL RBC (4.2-5.4) M/uL Hgb (12.0-16.0) g/dL Hct (37-47) % MCV (80-100) fL MCH (25-34) pg MCHC (32-36) g/dL RDW Std Deviation (36.4-46.3) fL RDW Coeff of Stephie (11.5-14.5) % Plt Count (130-400) K/uL MPV (7.4-10.4) fL Immature Gran % (Auto) % Neut % (Auto) % Lymph % (Auto) % [place] % (Auto) % Eos % (Auto) % Baso % (Auto) % Neut # (Auto) (1.4-6.5) K/uL Lymph # (Auto) (1.2-3.4) K/uL [place] # (Auto) (0.11-0.59) K/uL Eos # (Auto) (0-0.5) K/uL Baso # (Auto) (0-0.2) K/uL Immature Gran # (Auto) (0.00-0.02) K/uL Sodium (136-145) mmol/L Potassium (3.5-5.1) mmol/L Chloride (98-107) mmol/L Carbon Dioxide (21-32) mmol/L Anion Gap (3-11) BUN (7-18) mg/dl Creatinine (0.6-1.2) mg/dl Est Cr Clr Drug Dosing ml/min Est GFR ( Amer) ml/min Est GFR (Non-Af Amer) ml/min BUN/Creatinine Ratio (10-20) Glucose (70-99) mg/dl Calcium (8.5-10.1) mg/dl Phosphorus (2.5-4.9) mg/dl Magnesium (1.8-2.4) mg/dl Total Bilirubin (0.2-1) mg/dl Direct Bilirubin (0-0.2) mg/dl AST (15-37) U/L ALT (12-78) U/L Alkaline Phosphatase (45-117) U/L Troponin I (0-0.045) ng/ml Total Protein (6.4-8.2) gm/dl Albumin (3.4-5.0) gm/dl Globulin (2.5-4.0) gm/dl Albumin/Globulin Ratio (0.9-2) Lipase (73-393) U/L TSH (0.300-4.500) uIu/ml COVID-19 Eval Order SARS-CoV-2 (PCR) NEGATIVE (Negative) Administered Medications Acetaminophen (Acetaminophen 500 Mg Tab) 1,000 mg PO Q8 LISA Stop: 07/09/21 22:29 Last Admin: 06/09/21 23:08 Dose: 1,000 mg Documented by: [id number] Aspirin (Aspirin 81 Mg Ectab) 81 mg PO BID LISA Stop: 07/09/21 22:16 Last Admin: 06/09/21 23:06 Dose: 81 mg Documented by: [id number] Atorvastatin Calcium (Atorvastatin 20 Mg Tab) 20 mg PO HS LISA Stop: 07/09/21 22:16 Last Admin: 06/09/21 23:07 Dose: 20 mg Documented by: [id number] Diclofenac Sodium (Diclofenac Sodium 75 Mg Tabcr) 75 mg PO BID LISA Stop: 07/09/21 22:16 Last Admin: 06/09/21 23:07 Dose: 75 mg Documented by: [id number] Oxycodone HCl (Oxycodone Hcl Ir 5 Mg Tab (Immediate Release)) 5 mg PO Q4H PRN PRN Reason: pain Stop: 06/23/21 22:16 Last Admin: 06/09/21 23:58 Dose: 5 mg Documented by: [id number] Ropinirole HCl (Ropinirole Hcl 1 Mg Tablet) 1 mg PO HS LISA Stop: 07/09/21 22:16 Last Admin: 06/09/21 23:07 Dose: 1 mg Documented by: [id number] Discontinued Medications Sodium Chloride (Nss 1000ml) 1,000 mls @ 999 mls/hr IV .Q1H1M ONE Stop: 06/09/21 15:07 Last Infusion: 06/09/21 15:03 Dose: 0 mls/hr Documented by: [id number] Admin: 06/09/21 14:18 Dose: 999 mls/hr Documented by: [id number] Acetaminophen (Ofirmev) 1,000 mg in 100 mls @ 400 mls/hr IV NOW STA Stop: 06/09/21 14:21 Last Infusion: 06/09/21 14:59 Dose: 0 mls/hr Documented by: [id number] Admin: 06/09/21 14:19 Dose: 400 mls/hr Documented by: [id number] Morphine Sulfate (Morphine Sulfate 2 Mg/Ml Carp) 2 mg IV NOW STA Stop: 06/09/21 14:08 Last Admin: 06/09/21 14:32 Dose: 2 mg Documented by: [id number] Morphine Sulfate (Morphine Sulfate 2 Mg/Ml Carp) 2 mg IV NOW STA Stop: 06/09/21 17:18 Last Admin: 06/09/21 17:57 Dose: 2 mg Documented by: [id number] Oxycodone HCl (Oxycodone Hcl Ir 5 Mg Tab (Immediate Release)) Confirm Administered Dose 5 mg .ROUTE .STK-MED ONE Stop: 06/09/21 21:22 Last Admin: 06/09/21 21:27 Dose: 5 mg Documented by: [id number] Imaging Data Radiologist's Impression: Chest X-Ray 06/09/21 14:07 XR chest 1V portable HISTORY: 76 years-old Female Chest Pain acute atypical chest pain COMPARISON: Chest radiograph 10/02/2018 TECHNIQUE: Supine AP view of the chest FINDINGS: Cardiomediastinal and hilar silhouettes are within normal limits. There is no pneumothorax, pleural effusion, airspace consolidation or overt pulmonary edema. Eventration of the right hemidiaphragm. Spondylitic spurring of the spine. IMPRESSION: No acute process. ACT 112: Negative or not required by law. The above report was generated using voice recognition software. It may contain grammatical, syntax or spelling errors. Electronically signed by: Vlad Herrera M.D. 06/09/2021 2:[address] 06/09/21 17:17 CT hip LT wo con HISTORY: 76 years-old Female pain, s/p DOUGLAS acute left hip pain status post total joint arthroplasty COMPARISON: Pelvis and hip radiographs of same day TECHNIQUE: Multiple axial CT images of the left hip were obtained without the use of IV contrast. A dose lowering technique was used consistent with the principals of WILLIE. FINDINGS: Moderate atherosclerotic plaque. Coarse calcifications are noted within the region of the left uterine cornua. Colonic diverticulosis. No bowel obstruction or bowel wall thickening. Streak artifact from bilateral hip total joint arthroplasties limits the study. Moderate subcutaneous edema with lateral skin thickening of the left thigh and hip. Mild cutaneous hemorrhage along the surgical tract of the left hip. Extensive intramuscular hematoma extends from the superior aspect of the left gluteus medius distribution and extends into the upper thigh into the hamstring and proximal quadriceps measuring over 28 cm in length extending distal to the [id number] and measures up to approximately 9 cm in transverse dimension. Hemorrhage extends into the piriformis muscle. Mild dependent fluid/hemorrhage within the pelvis. Severe facet arthrosis of the lower lumbar spine. Demineralized appearance of the bones. No acute fracture. IMPRESSION: 1. Status post left hip arthroplasty. No acute fracture or malalignment. 2. Large amount of intramuscular hematoma within the left hip and thigh involves the gluteal, quadriceps and hamstring musculature measuring over 20 cm in length. ACT 112: Negative or not required by law. The above report was generated using voice recognition software. It may contain grammatical, syntax or spelling errors. Electronically signed by: Vlad eHrrera M.D. 06/09/2021 6:41 PM Venous Doppler Study 06/09/21 17:47 US venous doppler LE LT HISTORY: 76 years-old Female pain, s/p DOUGLAS acute left lower extremity pain status post arthroplasty COMPARISON: CT left hip of same day TECHNIQUE: Multiple real-time sonographic images of the left lower extremity tan p venous structures were obtained assessing grayscale appearance, color and spectral flow FINDINGS: Limited exam secondary to patient pain throughout the study. Normal flow, compressibility, phasicity and augmentation. Subcutaneous edema. IMPRESSION: No sonographic evidence of deep venous thrombosis. ACT 112: Negative or not required by law. The above report was generated using voice recognition software. It may contain grammatical, syntax or spelling errors. Electronically signed by: Vlad Herrera M.D. 06/09/2021 7:08 PM Discharge Plan Visit Data Chief Complaint: Hip Pain ED Provider: Elliott Moreno Discharge Problem: Status post total hip replacement, left, Intramuscular hematoma, Left leg pain Patient Disposition: Admitted As Inpatient Discharge Instructions Interventions: ED Discharge Assessment Last Done: 06/09/21 21:47
--- NOTE | 2021-06-09 17:57 | Orthopedic Consultation ---
Date of Consultation June 09, 2021 Assessment & Plan (1) Status post total hip replacement, left: I spoke with Dr. Moreno emergency room physician. I recommend we get a CT scan of her hip to rule out any fracture. My suspicion is low for this however. I also recommend we get a D duplex scan to rule out a DVT given her history of recent DVT. Should the scans show an acute new DVT she would be fine to undergo therapeutic anticoagulation at this time point. It is possible that she has a pinched nerve in her back. I do not want to give her steroids as soon after surgery however because she is still trying to heal her wound. We will plan on admitting her to the medical service. She did say she got lightheaded when she tries to sit up. If there is evidence of a DVT may want to consider a CT scan to rule out a PE. Orthopedics will continue to follow. (2) Restless legs syndrome: (3) Left leg pain: History of Present Illness Reason for Consultation: Left leg pain History of Present Illness 76-year-old female, status post a total hip replacement by myself on last week approximately 6 days ago. She does have a medical history significant for DVT in this left leg. She was doing very well after surgery until today. She said she started getting pain in her thigh and calf going into her foot. She says she had some cramping in this region when she would be seated on a toilet but it was tolerable. Today however she had significant pain when she was seated. She says the pain that she feels is different than when she had the DVT. Denies any back pain. No fevers or chills. Pain is better when she is supine. She has not been able to stand on it very well yet today so she cannot tell whether it is better with standing. Allergies Allergy/AdvReac Type Severity Reaction Status Date / Time Penicillins Allergy Intermediate Itchiness, Verified 06/09/21 17:00 lips tingling Sulfa (Sulfonamide Allergy Intermediate Itchiness, Verified 06/09/21 17:00 Antibiotics) lips tingling Home Medications Medication Instructions Recorded Confirmed Type cranberry 500 mg capsule 500 mg PO QAM 03/07/19 06/09/21 History verapamil 180 mg tablet,extended 180 mg PO BID 03/07/19 06/09/21 History release pantoprazole 40 mg tablet,delayed 40 mg PO QAM 07/25/19 06/09/21 History release ropinirole 1 mg tablet 1 mg PO DAILY@1500 07/25/19 06/09/21 History ropinirole 1 mg tablet 1 mg PO HS 07/25/19 06/09/21 History atorvastatin 20 mg tablet 20 mg PO HS 04/10/20 06/09/21 History citalopram 20 mg tablet 20 mg PO QAM 04/10/20 06/09/21 History losartan 50 mg tablet 50 mg PO HS 04/10/20 06/09/21 History aspirin 81 mg tablet,delayed 81 mg PO BID 30 Days #60 tab 06/04/21 06/09/21 Rx release diclofenac sodium 75 mg 75 mg PO BID 30 Days #60 tab 06/04/21 06/09/21 Rx tablet,delayed release oxycodone 5 mg tablet 5 - 10 mg PO Q4H PRN #24 tab 06/04/21 06/09/21 Rx acetaminophen 500 mg tablet 1,000 mg PO Q8 06/09/21 06/09/21 History (Tylenol Extra Strength) clobetasol 0.05 % topical ointment 1 applic TOP [id number] 06/09/21 06/09/21 History conjugated estrogens 0.625 mg/gram 0.625 mg PV DIRECTED 06/09/21 06/09/21 History vaginal cream (Premarin) Patient History Medical History Arthritis Depression GERD (gastroesophageal reflux disease) controlled History of DVT (deep vein thrombosis) remote per records from surgeon's office Hypercholesterolemia Hypertension Intrinsic asthma stable; no recent issues Lichen sclerosus et atrophicus Obesity Primary localized osteoarthrosis of right hip Restless legs syndrome Stress incontinence in female Thyroid nodule "benign" Surgical History H/O abdominoplasty History of bronchoscopy with brushings (2013) d/t chronic cough (r/t aman inhibitor treatment) History of carpal tunnel release right (2016) left CTR + left middle trigger finger release (04/20/20): MAC at [facility] History of cataract surgery R/L (2011) History of colonoscopy History of esophagogastroduodenoscopy (EGD) History of total hip arthroplasty Right DOUGLAS (08/01/19): SAB at L3/L4 (x1 attempt) at [facility] Hx of cholecystectomy Hx of hemorrhoidectomy Hx of tubal ligation S/P thyroid biopsy Family History Mother Myocardial infarction Aunt Breast cancer Maternal Father Colorectal cancer Brother Colorectal cancer Sister Family history of diabetes mellitus Denies family history of Ovarian cancer Social History Smoking Status: Unknown if ever smoked Age Started Using Tobacco: 18; Age Quit Using Tobacco: 22; packs per day: 1; Years Smoked: 4; Second Hand Exposure: Yes ( A CHILD); Hx Alcohol Use: Yes Alcohol type: beer, wine and hard liquor Hx Substance Use: No Preferred Language: Belarusian Communication Ability: Effective Senior Relationship Manager Required: No Beliefs That Will Affect Care: None marital status: Current Living Situation: Spouse Feels Safe at Home: Yes Assistive Devices: Walker Physical Exam Physical Exam: On exam she appears comfortable while lying supine in bed. Neurologic exam reveals a positive straight leg raise that reproduces her symptoms. She reports some decreased sensation to light touch on the plantar aspect of the foot. Patellar reflexes are intact at 2+. Achilles tendon reflexes are diminished bilaterally 1+. Musculoskeletal: She tolerates a gentle logroll. Axial compression of the leg does not cause her any difficulties. Her wound is benign with no drainage through the window and the Silverlon dressing. No surrounding redness or erythema. She does have some mild swelling around the wound appropriate for this stage postoperatively. She is wearing her FLORENTINO stockings and there is no obvious swelling distally. No tenderness to palpation over her calf. Negative Homans test Results & Data ([facility]) Vital Signs (Past 12 Hours) Vital Signs Pulse Pulse Resp BP BP Pulse Ox 06/09/21 16:00 66 17 120/60 99 06/09/21 15:31 66 16 113/55 L 98 06/09/21 15:30 88 L 06/09/21 15:00 65 16 112/55 L 98 06/09/21 14:26 67 18 101/59 L 06/09/21 14:13 64 20 80/44 L 92 06/09/21 14:07 63 64 18 80/39 L 93 06/09/21 14:00 62 16 90/46 L 93 06/09/21 13:51 61 17 80/39 L 96 06/09/21 12:07 68 16 125/62 125/62 98 Diagnostic Findings I reviewed her x-rays of her hip. No fractures are visualized. Hardware is in good position.
--- NOTE | 2021-06-09 18:42 | CT Scan Report ---
CT hip LT wo con HISTORY: 76 years-old Female pain, s/p DOUGLAS acute left hip pain status post total joint arthroplasty COMPARISON: Pelvis and hip radiographs of same day TECHNIQUE: Multiple axial CT images of the left hip were obtained without the use of IV contrast. A d ose lowering technique was used consistent with the principals of WILLIE. FINDINGS: Moderate atherosclerotic plaque. Coarse calcifications are noted within the region of the left uterin e cornua. Colonic diverticulosis. No bowel obstruction or bowel wall thickening. Streak artifact from bilateral hip total joint arthroplasties limits the study. Moderate subcutaneous edema with lateral skin thickening of the left thigh and hip. Mild cutaneous he morrhage along the surgical tract of the left hip. Extensive intramuscular hematoma extends from the superior aspect of the left gluteus medius distribution and extends into the upper thigh into the ham string and proximal quadriceps measuring over 28 cm in length extending distal to the [id number] a nd measures up to approximately 9 cm in transverse dimension. Hemorrhage extends into the piriformis muscle. Mild dependent fluid/hemorrhage within the pelvis. Severe facet arthrosis of the lower lumbar spine. Demineralized appearance of the bones. No acute fra cture. IMPRESSION: 1. Status post left hip arthroplasty. No acute fracture or malalignment. 2. Large amount of intramuscular hematoma within the left hip and thigh involves the gluteal, quadric eps and hamstring musculature measuring over 20 cm in length. ACT 112: Negative or not required by law. The above report was generated using voice recognition software. It may contain grammatical, syntax o r spelling errors. Electronically signed by: Vlad Herrera M.D. 06/09/2021 6:41 PM
--- NOTE | 2021-06-09 19:11 | History & Physical Report ---
Date of Service June 09, 2021 Assessment & Plan (1) Left leg pain: Plan: As per HPI - continue Tylenol, oxycodone 5 mg - Postoperative hematoma/hemorrhage - No fracture - Hemoglobin level stable - BP stable, no dizziness while sitting up on evaluation - Compartments soft, no pain out of proportion - Full ROM CT scan as above LLE ultrasound negative for DVT (2) Status post total hip replacement, left: Plan: As per HPI- imaging as above - orthopaedics consulted, appreciate assistance - Pt/OT - VTE prophy TEDS, ASA 81mg daily, ambulation (3) Nontoxic multinodular goiter: Plan: TSH 2.7- imaged in 2014 (4) Depression: Plan: Continue Citalopram (5) Hypercholesterolemia: Plan: Continue Atorvastatin (6) Hypertension: Plan: Hold antihypertensives at this time - restart in morning given hemodynamic stability - appears euvolemic on exam (7) Restless legs syndrome: Plan: Continue ropinirole (8) GERD (gastroesophageal reflux disease): Plan: Continue pantoprazole 40mg daily History of Present Illness Primary Care Provider: Heidi Delacruz MD 76 YOF with past medical history of: OA, goider, depression, HLD, HTN, RLS, DVT of the leg, GERD. Patient is s/p left total hip arthroplasty on under spinal anesthesia and IV sedation. She was discharged on the a fter PT/OT evaluations. She was to continue FLORENTINO stocking and was discharged on Xeralto for her DVT prophylaxis, as she had a previous DVT in the left leg in July 05. She took her last dose of this, this morning. She returned today for increase pain in her left leg that goes from her left foot up to her thigh. Patient was evaluated at the bedside by Orthopaedics earlier today and recommend ed CT scan to r/o fracture and lower extremity ultrasound to rule out DVT. The patient had her CT scan performed, which was noted for extensive intramuscular hematoma. I did speak with Dr. Coley regarding these findings, and feels this is expected post operative. Ultrasound of the leg reveals no DVT. Patient will be admitted for pain control, PT/OT and Orthopaedics continue to follow post-operative care, follow hemodynamics and laboratory information. Patient reports that she has been doing very well with her physical therapy and walking quite frequently around the house. She had physical therapy yesterday and did not notice any change or pain. She had increase in pain today going down the middle of her leg to her foot as well as some lightheadedness and mild nausea. Patient has received her COVID vaccines and her COVID test today is NEGATIVE. Allergies Allergy/AdvReac Type Severity Reaction Status Date / Time Penicillins Allergy Intermediate Itchiness, Verified 06/09/21 17:00 lips tingling Sulfa (Sulfonamide Allergy Intermediate Itchiness, Verified 06/09/21 17:00 Antibiotics) lips tingling Home Medications Medication Instructions Recorded Confirmed Type cranberry 500 mg capsule 500 mg PO QAM 03/07/19 06/09/21 History verapamil 180 mg tablet,extended 180 mg PO BID 03/07/19 06/09/21 History release pantoprazole 40 mg tablet,delayed 40 mg PO QAM 07/25/19 06/09/21 History release ropinirole 1 mg tablet 1 mg PO DAILY@1500 07/25/19 06/09/21 History ropinirole 1 mg tablet 1 mg PO HS 07/25/19 06/09/21 History atorvastatin 20 mg tablet 20 mg PO HS 04/10/20 06/09/21 History citalopram 20 mg tablet 20 mg PO QAM 04/10/20 06/09/21 History losartan 50 mg tablet 50 mg PO HS 04/10/20 06/09/21 History aspirin 81 mg tablet,delayed 81 mg PO BID 30 Days #60 tab 06/04/21 06/09/21 Rx release diclofenac sodium 75 mg 75 mg PO BID 30 Days #60 tab 06/04/21 06/09/21 Rx tablet,delayed release oxycodone 5 mg tablet 5 - 10 mg PO Q4H PRN #24 tab 06/04/21 06/09/21 Rx acetaminophen 500 mg tablet 1,000 mg PO Q8 06/09/21 06/09/21 History (Tylenol Extra Strength) clobetasol 0.05 % topical ointment 1 applic TOP 2XWK 06/09/21 06/09/21 History conjugated estrogens 0.625 mg/gram 0.625 mg PV DIRECTED 06/09/21 06/09/21 History vaginal cream (Premarin) Past Med/Surg History Medical History Arthritis Depression GERD (gastroesophageal reflux disease) controlled History of DVT (deep vein thrombosis) remote per records from surgeon's office Hypercholesterolemia Hypertension Intrinsic asthma stable; no recent issues Lichen sclerosus et atrophicus Obesity Primary localized osteoarthrosis of right hip Restless legs syndrome Stress incontinence in female Thyroid nodule "benign" Surgical History H/O abdominoplasty History of bronchoscopy with brushings (2013) d/t chronic cough (r/t aman inhibitor treatment) History of carpal tunnel release right (2016) left CTR + left middle trigger finger release (04/20/20): MAC at [facility] History of cataract surgery R/L (2011) History of colonoscopy History of esophagogastroduodenoscopy (EGD) History of total hip arthroplasty Right DOUGLAS (08/01/19): SAB at L3/L4 (x1 attempt) at [facility] Hx of cholecystectomy Hx of hemorrhoidectomy Hx of tubal ligation S/P thyroid biopsy Family History Mother Myocardial infarction Aunt Breast cancer Maternal Father Colorectal cancer Brother Colorectal cancer Sister Family history of diabetes mellitus Denies family history of Ovarian cancer Social History Smoking Status: Unknown if ever smoked Age Started Using Tobacco: 18; Age Quit Using Tobacco: 22; packs per day: 1; Years Smoked: 4; Second Hand Exposure: Yes ( A CHILD); Hx Alcohol Use: Yes Alcohol type: beer, wine and hard liquor Hx Substance Use: No Preferred Language: Urdu Communication Ability: Effective Senior Litigation Paralegal Required: No Beliefs That Will Affect Care: None marital status: Current Living Situation: Spouse Feels Safe at Home: Yes Assistive Devices: Walker Review of Systems Review of Systems: REVIEW OF SYSTEMS: Constitutional: No fever, sweats or chills Eyes: No diplopia, no worsening or blurred vision ENT: normal hearing, no trouble swallowing Respiratory: No cough, sputum, dyspnea at rest or on exertion Cardiovascular: No chest pain, tightness or palpitations Abdomen: No pain, nausea, vomiting, diarrhea or constipation Musculoskeletal: (+) pain, calf pain, no swelling Neurologic: No weakness, numbness/tingling, or balance problems Psychiatric: No anxiety or depression Skin: (+) ecchymosis at operative site Physical Exam Physical Exam: PHYSICAL EXAM: General: awake, alert, no apparent distress Head: Normocephalic, atraumatic ENT: PERRL, EOMI, no pharyngeal exudate, mucous membranes moist Neuro: AAO x 3, speech clear and appropriate, strength intact bilaterally 5/5, sensation intact and equal all extremities and dermatomes, no pronator drift Chest: equal rise and fall of the chest, no accessory muscle use, no heaves or thrills, Clear to auscultation, on room air, Cardiac: Regular rate and rhythm, telemetry reviewed, skin warm dry, cap refill <3 seconds, peripheral pulses +2 no JVD, no murmur, no edema GI: NABS x 4 quadrants, soft, nontender to palpation, no rebound, guarding or tenderness, no pain with deep palpation, no suprapubic pain : Spontaneously voiding, no pain, no CVA tenderness, Extremities: Left leg with mild ecchymosis at surgical site, full ROM with elevation to 45 degrees until pain starts, strength 5/5, pulses strong, Muscle compartments soft. Psych: Normal mood and affect Skin: no rash or erythema Results & Data Results & Data ([facility]) Vital Signs (Past 12 Hours) Vital Signs Pulse Pulse Resp BP BP Pulse Ox 06/09/21 18:00 78 19 138/62 06/09/21 17:20 80 18 111/68 93 06/09/21 16:00 66 17 120/60 99 06/09/21 15:31 66 16 113/55 L 98 06/09/21 15:30 88 L 06/09/21 15:00 65 16 112/55 L 98 06/09/21 14:26 67 18 101/59 L 06/09/21 14:13 64 20 80/44 L 92 06/09/21 14:07 63 64 18 80/39 L 93 06/09/21 14:00 62 16 90/46 L 93 06/09/21 13:51 61 17 80/39 L 96 06/09/21 12:07 68 16 125/62 125/62 98 Laboratory Results Abnormal Labs 06/09/21 06/09/21 14:39 14:39 RBC 3.56 L Hgb 11.2 L Hct 35.0 L RDW Std Deviation 51.2 H Neut # (Auto) 8.01 H Lymph # (Auto) 0.91 L Emanuel # (Auto) 0.89 H Immature Gran # (Auto) 0.06 H BUN/Creatinine Ratio 21.5 H Glucose 111 H Total Protein 5.9 L Albumin 2.9 L Diagnostic Findings Hip/Pelvis X-Ray 06/09/21 13:04 XR hip LT 2V w pelvis CLINICAL HISTORY: pain, s/p L hip replacement COMPARISON: Pelvis and left hip radiographs June 03, 2021. FINDINGS: Alignment of the bilateral total hip arthroplasties is anatomic. No periprosthetic fracture or lucency adjacent to left hip arthroplasty is noted. Degenerative changes at the symphysis pubis are incidentally noted. IMPRESSION: Expected findings following total left hip arthroplasty. No periprosthetic fracture or lucency. Electronically signed by: Narendra Moreno M.D. 06/09/2021 1:46 PM Chest X-Ray 06/09/21 14:07 XR chest 1V portable HISTORY: 76 years-old Female Chest Pain acute atypical chest pain COMPARISON: Chest radiograph 10/02/2018 TECHNIQUE: Supine AP view of the chest FINDINGS: Cardiomediastinal and hilar silhouettes are within normal limits. There is no pneumothorax, pleural effusion, airspace consolidation or overt pulmonary edema. Eventration of the right hemidiaphragm. Spondylitic spurring of the spine. IMPRESSION: No acute process. ACT 112: Negative or not required by law. The above report was generated using voice recognition software. It may contain grammatical, syntax or spelling errors. Electronically signed by: Vlad Herrera M.D. 06/09/2021 2:[address] 06/09/21 17:17 CT hip LT wo con HISTORY: 76 years-old Female pain, s/p DOUGLAS acute left hip pain status post total joint arthroplasty COMPARISON: Pelvis and hip radiographs of same day TECHNIQUE: Multiple axial CT images of the left hip were obtained without the use of IV contrast. A dose lowering technique was used consistent with the principals of WILLIE. FINDINGS: Moderate atherosclerotic plaque. Coarse calcifications are noted within the region of the left uterine cornua. Colonic diverticulosis. No bowel obstruction or bowel wall thickening. Streak artifact from bilateral hip total joint arthroplasties limits the study. Moderate subcutaneous edema with lateral skin thickening of the left thigh and hip. Mild cutaneous hemorrhage along the surgical tract of the left hip. Extensive intramuscular hematoma extends from the superior aspect of the left gluteus medius distribution and extends into the upper thigh into the hamstring and proximal quadriceps measuring over 28 cm in length extending distal to the [id number] and measures up to approximately 9 cm in transverse dimension. Hemorrhage extends into the piriformis muscle. Mild dependent fluid/hemorrhage within the pelvis. Severe facet arthrosis of the lower lumbar spine. Demineralized appearance of the bones. No acute fracture. IMPRESSION: 1. Status post left hip arthroplasty. No acute fracture or malalignment. 2. Large amount of intramuscular hematoma within the left hip and thigh involves the gluteal, quadriceps and hamstring musculature measuring over 20 cm in length. ACT 112: Negative or not required by law. The above report was generated using voice recognition software. It may contain grammatical, syntax or spelling errors. Electronically signed by: Vlad Herrera M.D. 06/09/2021 6:41 PM Venous Doppler Study 06/09/21 17:47 US venous doppler LE LT HISTORY: 76 years-old Female pain, s/p DOUGLAS acute left lower extremity pain status post arthroplasty COMPARISON: CT left hip of same day TECHNIQUE: Multiple real-time sonographic images of the left lower extremity deep venous structures were obtained assessing grayscale appearance, color and spectral flow FINDINGS: Limited exam secondary to patient pain throughout the study. Normal flow, compressibility, phasicity and augmentation. Subcutaneous edema. IMPRESSION: No sonographic evidence of deep venous thrombosis. ACT 112: Negative or not required by law. The above report was generated using voice recognition software. It may contain grammatical, syntax or spelling errors. Electronically signed by: Vlad Herrera M.D. 06/09/2021 7:08 PM Medications Administered Discontinued Medications Sodium Chloride (Nss 1000ml) 1,000 mls @ 999 mls/hr IV .Q1H1M ONE Stop: 06/09/21 15:07 Last Infusion: 06/09/21 15:03 Dose: 0 mls/hr Documented by: [id number] Admin: 06/09/21 14:18 Dose: 999 mls/hr Documented by: [id number] Acetaminophen (Ofirmev) 1,000 mg in 100 mls @ 400 mls/hr IV NOW STA Stop: 06/09/21 14:21 Last Infusion: 06/09/21 14:59 Dose: 0 mls/hr Documented by: [id number] Admin: 06/09/21 14:19 Dose: 400 mls/hr Documented by: [id number] Morphine Sulfate (Morphine Sulfate 2 Mg/Ml Carp) 2 mg IV NOW STA Stop: 06/09/21 14:08 Last Admin: 06/09/21 14:32 Dose: 2 mg Documented by: [id number] Morphine Sulfate (Morphine Sulfate 2 Mg/Ml Carp) 2 mg IV NOW STA Stop: 06/09/21 17:18 Last Admin: 06/09/21 17:57 Dose: 2 mg Documented by: [id number] Home Medications cranberry 500 mg capsule 500 mg PO QAM 03/07/19 [History Confirmed 06/09/21] verapamil 180 mg tablet,extended release 180 mg PO BID 03/07/19 [History Confirmed 06/09/21] pantoprazole 40 mg tablet,delayed release 40 mg PO QA 07/25/19 [History Confirmed 06/09/21] ropinirole 1 mg tablet 1 mg PO DAILY@1500 07/25/19 [History Confirmed 06/09/21] ropinirole 1 mg tablet 1 mg PO HS 07/25/19 [History Confirmed 06/09/21] atorvastatin 20 mg tablet 20 mg PO HS 04/10/20 [History Confirmed 06/09/21] citalopram 20 mg tablet 20 mg PO QA 04/10/20 [History Confirmed 06/09/21] losartan 50 mg tablet 50 mg PO HS 04/10/20 [History Confirmed 06/09/21] aspirin 81 mg tablet,delayed release 81 mg PO BID 30 Days #60 tab 06/04/21 [Rx C onfirmed 06/09/21] diclofenac sodium 75 mg tablet,delayed release 75 mg PO BID 30 Days #60 tab 06/04/21 [Rx Confirmed 06/09/21] oxycodone 5 mg tablet 5 - 10 mg PO Q4H PRN #24 tab 06/04/21 [Rx Confirmed 06/09/21] acetaminophen 500 mg tablet (Tylenol Extra Strength) 1,000 mg PO Q8 06/09/21 [History Confirmed 06/09/21] clobetasol 0.05 % topical ointment 1 applic TOP 2XWK 06/09/21 [History Confirmed 06/09/21] conjugated estrogens 0.625 mg/gram vaginal cream (Premarin) 0.625 mg PV DIRECTED 06/09/21 [History Confirmed 06/09/21] ECG Additional Comments: Normal sinus rhythm Nonspecific ST abnormality Abnormal ECG When compared with ECG of 12-MAY-2021 09:53, Questionable change in QRS axis Nonspecific T wave abnormality now evident in Inferior leads Code Status & VTE Plan Code Status CODE: FULL VTE: SCDs, TEDS, Aspirin Supervising Physician Co-Signing Physician Notes Pt seen/examined in conjunction with RUSSELL Aggarwal. Orders and plan of admission reviewed. 76 y/o F Hx HTN, HLD, RLS, recent DOUGLAS 06/03 - placed on Xarelto for DVT prophylaxis. She developed severe pain with movement, leading to near syncope when trying to ambulate. A CT in the ER demonstrated a large amount of intramuscular hematoma within the left hip and thigh. On discussion with ortho, they have indicated that this is nonemergent and a degree of hematoma is expected. General: AAO x 3, no distress ENT: No erythema or exudates, no thrush Eyes: OJ, EOMI Head and neck: Normocephalic, atraumatic, No JVD, neck is supple. Chest/heart: Nontender, S1,2, RRR, no murmurs, no gallops Lungs: CTAB, no wheezing or crackles Abdomen: Nontender, nondistended, BS+ Neuro: AAO x 3, speech is clear, no unilateral weakness or loss of sensation, coordination intact Musculoskeletal: No joint inflammation, muscle tenderness, FROM Skin: No acute rashes or ulcers Extremities: No clubbing, cyanosis, edema P: 1) Severe pain owing to a hematoma post-op. The pt is admitted for pain control, PT/OT. Ortho are consulted. 2) HTN - cont Losartan 3) HLD - cont statin 4) RLS - cont ropinirole Full code - SCDs Total time for this admit including review of labs, meds, imaging, records - di scussion with pt and ER attending - 35 min PG Care Time/CCT Total # of Minutes Spent Total Time Spent with Patient: Total time spent is greater than 50% in coordination of care (as documented) at patient's floor/unit and/or counseling patient: Coding Level of Care Code 38041 Initial Inpt Care Lvl 3 Diagnoses Left leg pain M79.605 Status post total hip replacement, left Z96.642 Nontoxic multinodular goiter E04.2 Depression F32.9 Hypercholesterolemia E78.00 Hypertension I10 Restless legs syndrome G25.81 GERD (gastroesophageal reflux disease) K21.9
[2021-06-09] MEDS ORDERED: oxyCODONE HCL IR 5 MG TAB (IMMEDIATE RELEASE) ONE (21:21)
[2021-06-09] MEDS: ASPIRIN 81 MG ECTAB PO SCH (23:06)
[2021-06-09] MEDS: ATORVASTATIN 20 MG TAB PO SCH (23:07)
[2021-06-09] MEDS: rOPINIRole HCL 1 MG TABLET PO SCH (23:07)
[2021-06-09] MEDS: DICLOFENAC SODIUM 75 MG TABCR PO SCH (23:07)
[2021-06-09] MEDS: ACETAMINOPHEN 500 MG TAB PO SCH (23:08)
[2021-06-09 23:39] LABS: Appearance Urine Cloudy (Clear); Bacteria Urine Automated Negative (Negative); Blood Urine Negative (Negative); Color Urine Dark Yellow; Epithelial Cell Urine Auto >30 /lpf (0-5); Glucose Urine UA Negative (Negative); Ketones Urine 2+ (Negative); Leukocyte Esterase Urine Negative (Negative); Nitrite Urine Negative (Negative); Protein Urine Negative (Negative); RBC Urine Automated 0-4 /hpf (0-4); Specific Gravity Urine 1.022 (1.000-1.030); Urobilinogen Urine Negative (Negative); pH Urine 5.5 (4.5-7.5)
[2021-06-09 23:52] LABS: Bilirubin Urine 1+ (Negative)
[2021-06-09] MEDS: oxyCODONE HCL IR 5 MG TAB (IMMEDIATE RELEASE) PO PRN (23:58)
[2021-06-10 00:04] LABS: Calcium Oxalate Crystals Urine Present (None Prsent)
[2021-06-10] MEDS: oxyCODONE HCL IR 5 MG TAB (IMMEDIATE RELEASE) PO PRN ×3 (05:35→20:46)
[2021-06-10] MEDS: ACETAMINOPHEN 500 MG TAB PO SCH ×3 (05:35→20:47)
[2021-06-10 07:02] LABS: Hematocrit (blood only) 23.1 % (37-47); Hemoglobin 7.5 g/dL (12.0-16.0); Mean Corpuscular Hemoglobin 31.8 pg (25-34); Mean Corpuscular Hgb Conc 32.5 g/dL (32-36); Mean Corpuscular Volume 97.9 fL (80-100); Mean Platelet Volume 8.2 fL (7.4-10.4); Platelet Count 215 K/uL (130-400); RDW Coefficient of Variation 14.3 % (11.5-14.5); RDW Standard Deviation 51.5 fL (36.4-46.3); Red Blood Count 2.36 M/uL (4.2-5.4); White Blood Count 6.43 K/uL (4.8-10.8)
[2021-06-10 07:03] LABS: Eosinophils # (auto) 0.13 K/uL (0-0.5); Immature Granulocytes # (auto) 0.03 K/uL (0.00-0.02); Immature Granulocytes % (auto) 0.5 %; Lymphocytes # (auto) 1.29 K/uL (1.2-3.4); Lymphocytes % (auto) 20.1 %; Monocytes # (auto) 1.03 K/uL (0.11-0.59); Neutrophils # (auto) 3.95 K/uL (1.4-6.5); Neutrophils % (auto) 61.4 %
[2021-06-10 07:10] LABS: BUN Creatinine Ratio 22.2 (10-20); Calcium 7.7 mg/dl (8.5-10.1); Creatinine Clr Calc Pharmacy 55.3 ml/min; Est GFR (African American) 67.5 ml/min; Est GFR (Non-African American) 58.3 ml/min; Potassium 4.1 mmol/L (3.5-5.1)
[2021-06-10] MEDS ORDERED: CLOBETASOL PROPIONATE 0.05% OINT 15 GM TUBE EXT SCH (09:00)
--- NOTE | 2021-06-10 09:12 | Orthopedic Progress Note ---
Date of Service June 10, 2021 Assessment & Plan (1) Status post total hip replacement, left: Plan: Discussed with the patient this morning about DVT prophylaxis. Although the xarelto she is on likely contributed to the hematoma, I think it's best we keep her on that because she is going to be more immobile from the hematoma, elevating her risk of DVT. However, if her symptoms worsen or hemoglobin continues to drop, I would consider switching to aspirin. She may get out of bed with PT/OT, WBAT with walker, posterior hip precautions May discharge when internal medicine feels appropriate Please hold off transfusing patient, as this is a risk factor for wound infection. Orthopedics will continue to follow. (2) Restless legs syndrome: (3) Left leg pain: Admission and Anticipated Discharge Date Admission Date: June 09, 2021 Subjective Patient was comfortable overnight. Had a Snell catheter placed because she was unable to get out of bed to void. Duplex showed no evidence of DVT. CT scan showed no fracture, but she does have a hematoma which would explain her symptoms. Hg drop to 7.5 this AM. Physical Exam Physical Exam: On exam she appears comfortable while lying supine in bed. Neurologic exam reveals a positive straight leg raise that reproduces her symptoms. She reports some decreased sensation to light touch on the plantar aspect of the foot. Patellar reflexes are intact at 2+. Achilles tendon reflexes are diminished bilaterally 1+. Musculoskeletal: She tolerates a gentle logroll. Axial compression of the leg does not cause her any difficulties. Her wound is benign with no drainage through the window and the Silverlon dressing. No surrounding redness or erythema. She does have some mild swelling around the wound appropriate for this stage postoperatively. She is wearing her FLORENTINO stockings and there is no obvious swelling distally. No tenderness to palpation over her calf. Negative Homans test Results & Data ([facility]) Vital Signs (Past 12 Hours) Vital Signs Temp Pulse Resp BP Pulse Ox 06/10/21 06:59 36.6 C 76 16 98/64 L 95 06/09/21 22:27 37 C 97 H 20 118/68 97
[2021-06-10] MEDS: PANTOprazole 40 MG TAB PO SCH (09:27)
[2021-06-10] MEDS: CITALOPRAM 20 MG TAB PO SCH (09:27)
[2021-06-10] MEDS: DICLOFENAC SODIUM 75 MG TABCR PO SCH (09:27)
[2021-06-10] MEDS ORDERED: SODIUM CHLORIDE 0.9% 250 ML IV PRN ×2 (09:45→16:28)
[2021-06-10] MEDS: ASPIRIN 81 MG ECTAB PO SCH (09:59)
[2021-06-10] MEDS ORDERED: LACTATED RINGER'S 500 ML IV ONE (10:15)
[2021-06-10 15:10] LABS: Eosinophils # (auto) 0.16 K/uL (0-0.5); Eosinophils % (auto) 2.4 %; Hematocrit (blood only) 21.4 % (37-47); Immature Granulocytes # (auto) 0.02 K/uL (0.00-0.02); Immature Granulocytes % (auto) 0.3 %; Lymphocytes # (auto) 1.18 K/uL (1.2-3.4); Lymphocytes % (auto) 17.4 %; Mean Corpuscular Hemoglobin 32.1 pg (25-34); Mean Corpuscular Hgb Conc 32.7 g/dL (32-36); Mean Corpuscular Volume 98.2 fL (80-100); Mean Platelet Volume 8.1 fL (7.4-10.4); Monocytes % (auto) 16.2 %; Neutrophils # (auto) 4.32 K/uL (1.4-6.5); Neutrophils % (auto) 63.7 %; Platelet Count 207 K/uL (130-400); RDW Coefficient of Variation 14.3 % (11.5-14.5); RDW Standard Deviation 52.3 fL (36.4-46.3); Red Blood Count 2.18 M/uL (4.2-5.4); White Blood Count 6.78 K/uL (4.8-10.8)
--- NOTE | 2021-06-10 16:32 | Hospitalist Progress Note ---
Date of Service June 10, 2021 Assessment & Plan (1) Acute blood loss anemia: Plan: Presented with left thigh hematoma 6 days after discharge from a left hip total arthroplasty Hemoglobin initially 11.2 and then dropped to 7.5 this morning With associated lightheadedness, nausea, and hypotension this morning Responded to crystalloid bolus 500 mL of LR, but repeat hemoglobin later this afternoon again down to 7.0 Transfuse 1 unit PRBCs now Repeat CBC at midnight and transfuse second unit if still symptomatic or hemoglobin less than 7.5 Follow CBC in the morning as well (2) Intramuscular hematoma: Plan: As above, large amount hematoma intramuscularly seen on CT of the hip Secondary to recent surgery and being on Xarelto Holding Xarelto Holding aspirin, diclofenac Consider restarting Xarelto if CBC remains with stable hemoglobin tomorrow after transfusion (3) Status post total hip replacement, left: Plan: As per HPI- imaging as above - orthopaedics consulted, appreciate assistance - Pt/OT - VTE sea NG, holding Xarelto for now as above, holding aspirin (4) Left leg pain: Plan: As per HPI - continue Tylenol, oxycodone 5 mg - Postoperative hematoma/hemorrhage - No fracture CT scan as above LLE ultrasound negative for DVT (5) Depression: Plan: Continue Citalopram (6) Hypertension: Plan: Hold antihypertensives at this time due to hypotension as above from acute blood loss anemia - restart when blood pressure more stable (7) Restless legs syndrome: Plan: Continue ropinirole 1 mg at night and add her 1 mg in the afternoon dose (8) GERD (gastroesophageal reflux disease): Plan: Continue pantoprazole 40mg daily (9) Stress incontinence in female: Plan: Has Snell catheter in place-maintain for now (10) Nontoxic multinodular goiter: Plan: TSH 2.7- imaged in 2015 (11) Hypercholesterolemia: Plan: Continue Atorvastatin (12) History of DVT (deep vein thrombosis): Plan: Holding Xarelto as above due to acute blood loss anemia and hematoma Plan: Disposition-continued stay, getting PRBC transfusion Admission and Anticipated Discharge Date Admission Date: June 09, 2021 Subjective Had nausea, lightheadedness, and low BP when OOB to chair this AM. Responded to LR bolus 500mL and BP improved to 100 systolic. Got back into bed and had improvement in symptoms. She has some pain in the left hip No chest pain or shortness of breath No abdominal pains. I consented her for blood transfusion after repeat hemoglobin in the afternoon dropped further to 7.0 Review of Systems Review of Systems: All systems reviewed & are unremarkable except as noted in HPI & below Physical Exam Constitutional: WD/WN, vitals as above Eyes: + anicteric sclerae Neck: trachea midline, no thyromegaly Respiratory: normal respiratory effort, lungs clear to auscultation Cardiovascular: RRR, no murmur, no edema Chest (Breasts): Chest: normal inspection of chest Gastrointestinal (Abdomen): normal bowel sounds, soft, nontender, no hepatosplenomegaly Musculoskeletal: Extremities: + extremities abnormal to inspection (Left hip and posterior knee with ecchymosis and mild edema), no cyanosis and no clubbing Skin: no rashes, warm and dry Left hip dressing in place clean dry and intact Neurologic: moves all extremities and awake; no focal motor deficits Psychiatric: A+Ox3, euthymic affect Lymphatic: no lymphedema Results & Data Results & Data ([facility]) Vital Signs (Past 12 Hours) Vital Signs Temp Pulse Resp BP Pulse Ox 06/10/21 14:33 36.5 C 83 16 120/77 97 06/10/21 10:45 36.6 C 76 16 107/67 97 06/10/21 09:40 95/62 L 06/10/21 09:37 77 79/51 L 93 06/10/21 06:59 36.6 C 76 16 98/64 L 95 Laboratory Results 06/10/21 06/10/21 06/10/21 Range/Units 15:02 09:57 06:15 WBC 6.78 (4.8-10.8) K/uL RBC 2.18 L (4.2-5.4) M/uL Hgb 7.0 L (12.0-16.0) g/dL Hct 21.4 L (37-47) % MCV 98.2 (80-100) fL MCH 32.1 (25-34) pg MCHC 32.7 (32-36) g/dL RDW Std Deviation 52.3 H (36.4-46.3) fL RDW Coeff of Stephie 14.3 (11.5-14.5) % Plt Count 207 (130-400) K/uL MPV 8.1 (7.4-10.4) fL Immature Gran % (Auto) 0.3 % Neut % (Auto) 63.7 % Lymph % (Auto) 17.4 % [place] % (Auto) 16.2 % Eos % (Auto) 2.4 % Baso % (Auto) 0.0 % Neut # (Auto) 4.32 (1.4-6.5) K/uL Lymph # (Auto) 1.18 L (1.2-3.4) K/uL [place] # (Auto) 1.10 H (0.11-0.59) K/uL Eos # (Auto) 0.16 (0-0.5) K/uL Baso # (Auto) 0.00 (0-0.2) K/uL Immature Gran # (Auto) 0.02 (0.00-0.02) K/uL Sodium 135 L (136-145) mmol/L Potassium 4.1 (3.5-5.1) mmol/L Chloride 100 (98-107) mmol/L Carbon Dioxide 29 (21-32) mmol/L Anion Gap 6.0 (3-11) BUN 21 H (7-18) mg/dl Creatinine 0.96 (0.6-1.2) mg/dl Est Cr Clr Drug Dosing 55.3 ml/min Est GFR ( Amer) 67.5 ml/min Est GFR (Non-Af Amer) 58.3 ml/min BUN/Creatinine Ratio 22.2 H (10-20) Glucose 109 H (70-99) mg/dl Calcium 7.7 L (8.5-10.1) mg/dl Magnesium 2.0 (1.8-2.4) mg/dl Urine Color Urine Appearance (Clear) Urine pH (4.5-7.5) Ur Specific [place] (1.000-1.030) Urine Protein (Negative) Urine Glucose (UA) (Negative) Urine Ketones (Negative) Urine Blood (Negative) Urine Nitrite (Negative) Urine Bilirubin (Negative) Urine Urobilinogen (Negative) Ur Leukocyte Esterase (Negative) Urine WBC (Auto) (0-5) /hpf Urine RBC (Auto) (0-4) /hpf U Hyaline Cast (Auto) (0-5) /lpf U Epithel Cells (Auto) (0-5) /lpf Urine Bacteria (Auto) (Negative) Urine Crystals Calcium Oxalate Crystal (None Prsent) Hepatitis C Ab Screen Blood Type A Positive Antibody Screen NEGATIVE Crossmatch See Detail 06/10/21 06/10/21 06/09/21 Range/Units 06:15 06:15 23:29 WBC 6.43 (4.8-10.8) K/uL RBC 2.36 L (4.2-5.4) M/uL Hgb 7.5 L D (12.0-16.0) g/dL Hct 23.1 L (37-47) % MCV 97.9 (80-100) fL MCH 31.8 (25-34) pg MCHC 32.5 (32-36) g/dL RDW Std Deviation 51.5 H (36.4-46.3) fL RDW Coeff of Stephie 14.3 (11.5-14.5) % Plt Count 215 (130-400) K/uL MPV 8.2 (7.4-10.4) fL Immature Gran % (Auto) 0.5 % Neut % (Auto) 61.4 % Lymph % (Auto) 20.1 % [place] % (Auto) 16.0 % Eos % (Auto) 2.0 % Baso % (Auto) 0.0 % Neut # (Auto) 3.95 (1.4-6.5) K/uL Lymph # (Auto) 1.29 (1.2-3.4) K/uL [place] # (Auto) 1.03 H (0.11-0.59) K/uL Eos # (Auto) 0.13 (0-0.5) K/uL Baso # (Auto) 0.00 (0-0.2) K/uL Immature Gran # (Auto) 0.03 H (0.00-0.02) K/uL Sodium (136-145) mmol/L Potassium (3.5-5.1) mmol/L Chloride (98-107) mmol/L Carbon Dioxide (21-32) mmol/L Anion Gap (3-11) BUN (7-18) mg/dl Creatinine (0.6-1.2) mg/dl Est Cr Clr Drug Dosing ml/min Est GFR ( Amer) ml/min Est GFR (Non-Af Amer) ml/min BUN/Creatinine Ratio (10-20) Glucose (70-99) mg/dl Calcium (8.5-10.1) mg/dl Magnesium (1.8-2.4) mg/dl Urine Color Dark Yellow Urine Appearance Cloudy A (Clear) Urine pH 5.5 (4.5-7.5) Ur Specific [place] 1.022 (1.000-1.030) Urine Protein Negative (Negative) Urine Glucose (UA) Negative (Negative) Urine Ketones 2+ H (Negative) Urine Blood Negative (Negative) Urine Nitrite Negative (Negative) Urine Bilirubin 1+ H (Negative) Urine Urobilinogen Negative (Negative) Ur Leukocyte Esterase Negative (Negative) Urine WBC (Auto) 1-5 (0-5) /hpf Urine RBC (Auto) 0-4 (0-4) /hpf U Hyaline Cast (Auto) 1-5 (0-5) /lpf U Epithel Cells (Auto) >30 H (0-5) /lpf Urine Bacteria (Auto) Negative (Negative) Urine Crystals Not Reportable Calcium Oxalate Crystal Present A (None Prsent) Hepatitis C Ab Screen Pending Blood Type Antibody Screen Crossmatch PG Care Time/CCT Total # of Minutes Spent Total Time Spent with Patient: Total time spent is greater than 50% in coordination of care (as documented) at patient's floor/unit and/or counseling patient: Coding Level of Care Code 27999 Subseq Hosp Care Lvl 3 Diagnoses Left leg pain M79.605 Status post total hip replacement, left Z96.642 Nontoxic multinodular goiter E04.2 Depression F32.9 Hypercholesterolemia E78.00 Hypertension I10 Restless legs syndrome G25.81 GERD (gastroesophageal reflux disease) K21.9 Acute blood loss anemia D62 Intramuscular hematoma T14.8XXA Stress incontinence in female N39.3 History of DVT (deep vein thrombosis) Z86.718
[2021-06-10 16:57] LABS: Polychromasia 1+
[2021-06-10] MEDS: rOPINIRole HCL 1 MG TABLET PO SCH ×2 (17:21→20:47)
[2021-06-10] MEDS: ATORVASTATIN 20 MG TAB PO SCH (20:47)
[2021-06-11 00:21] LABS: Hematocrit (blood only) 23.2 % (37-47); Hemoglobin 7.7 g/dL (12.0-16.0); Mean Corpuscular Hemoglobin 31.4 pg (25-34); Mean Corpuscular Hgb Conc 33.2 g/dL (32-36); Mean Corpuscular Volume 94.7 fL (80-100); Mean Platelet Volume 8.2 fL (7.4-10.4); Platelet Count 203 K/uL (130-400); RDW Coefficient of Variation 15.3 % (11.5-14.5); RDW Standard Deviation 52.7 fL (36.4-46.3); Red Blood Count 2.45 M/uL (4.2-5.4); White Blood Count 7.04 K/uL (4.8-10.8)
[2021-06-11] MEDS: oxyCODONE HCL IR 5 MG TAB (IMMEDIATE RELEASE) PO PRN ×3 (05:47→19:58)
[2021-06-11] MEDS: ACETAMINOPHEN 500 MG TAB PO SCH ×3 (05:47→21:17)
[2021-06-11 06:31] LABS: Basophils # (auto) 0.01 K/uL (0-0.2); Basophils % (auto) 0.2 %; Eosinophils # (auto) 0.21 K/uL (0-0.5); Eosinophils % (auto) 3.4 %; Hematocrit (blood only) 23.4 % (37-47); Hemoglobin 7.7 g/dL (12.0-16.0); Immature Granulocytes # (auto) 0.03 K/uL (0.00-0.02); Immature Granulocytes % (auto) 0.5 %; Lymphocytes # (auto) 1.52 K/uL (1.2-3.4); Lymphocytes % (auto) 24.3 %; Mean Corpuscular Hemoglobin 31.2 pg (25-34); Mean Corpuscular Hgb Conc 32.9 g/dL (32-36); Mean Corpuscular Volume 94.7 fL (80-100); Mean Platelet Volume 8.1 fL (7.4-10.4); Monocytes # (auto) 0.91 K/uL (0.11-0.59); Monocytes % (auto) 14.6 %; Neutrophils # (auto) 3.57 K/uL (1.4-6.5); Platelet Count 202 K/uL (130-400); RDW Coefficient of Variation 15.6 % (11.5-14.5); RDW Standard Deviation 53.6 fL (36.4-46.3); Red Blood Count 2.47 M/uL (4.2-5.4); White Blood Count 6.25 K/uL (4.8-10.8)
[2021-06-11 07:01] LABS: BUN Creatinine Ratio 21.5 (10-20); Creatinine Clr Calc Pharmacy 55.9 ml/min; Est GFR (African American) 68.4 ml/min; Potassium 4.1 mmol/L (3.5-5.1)
[2021-06-11 07:11] LABS: RBC Morphology Unremarkable
[2021-06-11] MEDS: CITALOPRAM 20 MG TAB PO SCH (09:37)
[2021-06-11] MEDS: PANTOprazole 40 MG TAB PO SCH (09:37)
--- NOTE | 2021-06-11 10:37 | Orthopedic Progress Note ---
Date of Service June 11, 2021 Assessment & Plan (1) Status post total hip replacement, left: Plan: Due to the drop in Hg, I agree with switching her from xarelto to aspirin. Still want to hold off on blood transfusion. She may get out of bed with PT/OT, WBAT with walker, posterior hip precautions Try to DC bush as soon as possible due to infection risk Please leave Silverlon dressing in place Plan to treat hematoma with observation. May discharge when internal medicine feels appropriate. Follow-up with ortho as scheduled after discharge. (2) Restless legs syndrome: (3) Left leg pain: Admission and Anticipated Discharge Date Admission Date: June 09, 2021 Subjective Patient reports her leg feels about the same this morning. Still has a lot of pain with sitting. Got transfused 1 u PRBC yesterday after Hg dropped to 7.0 Hg 7.7 this AM. Physical Exam Physical Exam: On exam she appears comfortable while lying supine in bed. Musculoskeletal: Bruising distal to the silverlon dressing about softball diameter noted today. She tolerates a gentle logroll. Her wound is benign with no drainage through the window and the Silverlon dressing. No surrounding redness or erythema. She does have some mild swelling around the wound approp riate for this stage postoperatively. She is wearing her FLORENTINO stockings and there is no obvious swelling distally. No tenderness to palpation over her calf. Negative Homans test Results & Data ([facility]) Vital Signs (Past 12 Hours) Vital Signs Temp Pulse Resp BP Pulse Ox 06/11/21 07:15 36.6 C 71 16 133/83 97
[2021-06-11] MEDS ORDERED: POLYETHYLENE (MIRALAX) 17 GM PACK PO PRN (13:58)
--- NOTE | 2021-06-11 13:58 | Hospitalist Progress Note ---
Date of Service June 11, 2021 Assessment & Plan (1) Acute blood loss anemia: Plan: Presented with left thigh hematoma 6 days after discharge from a left hip total arthroplasty Hemoglobin initially 11.2 and then dropped to 7.0 after admission With associated lightheadedness, nausea, and hypotension Responded to crystalloid boluses initially Transfused 1 unit PRBCs on 06/10 Now hgb up to 7.7 and stable No further transfusion today-BPs normal and now asymptomatic, improved Bleeding has stopped restart ASA 81mg po bid for DVT prophylaxis rather than Xarelto Follow CBC in the morning (2) Intramuscular hematoma: Plan: Postoperative intramuscular hematoma, greater than expected, a complication of care As above, large amount hematoma intramuscularly seen on CT of the hip Secondary to recent surgery and being on Xarelto dc Xarelto and diclofenac starting ASA 81mg bid for DVT prophylaxis (3) Status post total hip replacement, left: Plan: As per HPI- imaging as above - orthopaedics consulted, appreciate assistance - Pt/OT-rec home with home health - VTE prophy TEDS, aspirin -add senna/docusate for bowels, Miralax prn continue pain control with oxycodone remove Snell (4) Left leg pain: Plan: As per HPI - continue Tylenol, oxycodone 5 mg - Postoperative hematoma/hemorrhage - No fracture CT scan as above LLE ultrasound negative for DVT (5) Depression: Plan: Continue Citalopram (6) Hypertension: Plan: continue to hold antihypertensives at this time due to hypotension as above from acute blood loss anemia - restart when blood pressure more stable-maybe tomorrow (7) Restless legs syndrome: Plan: Continue ropinirole 1 mg at night and 1 mg in the afternoon dose (8) GERD (gastroesophageal reflux disease): Plan: Continue pantoprazole 40mg daily (9) Stress incontinence in female: Plan: remove Snell (10) Nontoxic multinodular goiter: Plan: TSH 2.7- imaged in 2014 (11) Hypercholesterolemia: Plan: Continue Atorvastatin (12) History of DVT (deep vein thrombosis): Plan: Holding Xarelto as above due to acute blood loss anemia and hematoma was not on chronic AC starting ASA as above now Plan: Disposition-continued stay, dc to home with home health tomorrow if hgb remains stable Admission and Anticipated Discharge Date Admission Date: June 09, 2021 Anticipated date of discharge: 06/12/21 Subjective Feels so much better this afternoon. Was still feeling a little dizzy with standing earlier and having pain in leg especially with sitting. No BM yet since admission. Is eating and drinking, ready to have Snell out. Denies CP/SOB Worked with PT today and walked 30 ft x 2 Review of Systems Review of Systems: All systems reviewed & are unremarkable except as noted in HPI & below Physical Exam Constitutional: WD/WN, vitals as above Eyes: + anicteric sclerae Neck: trachea midline, no thyromegaly Respiratory: normal respiratory effort, lungs clear to auscultation Cardiovascular: RRR, no murmur, no edema Chest (Breasts): Chest: normal inspection of chest Gastrointestinal (Abdomen): normal bowel sounds, soft, nontender, no hepatosplenomegaly Musculoskeletal: Extremities: + extremities abnormal to inspection (Left hip and posterior knee with ecchymosis and mild edema), no cyanosis and no clubbing Skin: no rashes, warm and dry Neurologic: moves all extremities and awake; no focal motor deficits Psychiatric: A+Ox3, euthymic affect Lymphatic: no lymphedema Results & Data Results & Data ([facility]) Vital Signs (Past 12 Hours) Vital Signs Temp Pulse Resp BP Pulse Ox 06/11/21 07:15 36.6 C 71 16 133/83 97 Laboratory Results 06/11/21 06/11/21 06/11/21 Range/Units 06:07 06:07 00:00 WBC 6.25 7.04 (4.8-10.8) K/uL RBC 2.47 L 2.45 L (4.2-5.4) M/uL Hgb 7.7 L 7.7 L (12.0-16.0) g/dL Hct 23.4 L 23.2 L (37-47) % MCV 94.7 94.7 (80-100) fL MCH 31.2 31.4 (25-34) pg MCHC 32.9 33.2 (32-36) g/dL RDW Std Deviation 53.6 H 52.7 H (36.4-46.3) fL RDW Coeff of Stephie 15.6 H 15.3 H (11.5-14.5) % Plt Count 202 203 (130-400) K/uL MPV 8.1 8.2 (7.4-10.4) fL Immature Gran % (Auto) 0.5 % Neut % (Auto) 57.0 % Lymph % (Auto) 24.3 % [place] % (Auto) 14.6 % Eos % (Auto) 3.4 % Baso % (Auto) 0.2 % Neut # (Auto) 3.57 (1.4-6.5) K/uL Lymph # (Auto) 1.52 (1.2-3.4) K/uL [place] # (Auto) 0.91 H (0.11-0.59) K/uL Eos # (Auto) 0.21 (0-0.5) K/uL Baso # (Auto) 0.01 (0-0.2) K/uL Immature Gran # (Auto) 0.03 H (0.00-0.02) K/uL RBC Morphology Unremarkable Polychromasia Sodium 132 L (136-145) mmol/L Potassium 4.1 (3.5-5.1) mmol/L Chloride 99 (98-107) mmol/L Carbon Dioxide 29 (21-32) mmol/L Anion Gap 4.0 (3-11) BUN 20 H (7-18) mg/dl Creatinine 0.95 (0.6-1.2) mg/dl Est Cr Clr Drug Dosing 55.9 ml/min Est GFR ( Amer) 68.4 ml/min Est GFR (Non-Af Amer) 59.0 ml/min BUN/Creatinine Ratio 21.5 H (10-20) Glucose 100 H (70-99) mg/dl Calcium 8.0 L (8.5-10.1) mg/dl Magnesium 2.0 (1.8-2.4) mg/dl Hepatitis C Ab Screen (Neg) Blood Type Antibody Screen Crossmatch 06/10/21 06/10/21 06/10/21 Range/Units 15:02 09:57 06:15 WBC 6.78 (4.8-10.8) K/uL RBC 2.18 L (4.2-5.4) M/uL Hgb 7.0 L (12.0-16.0) g/dL Hct 21.4 L (37-47) % MCV 98.2 (80-100) fL MCH 32.1 (25-34) pg MCHC 32.7 (32-36) g/dL RDW Std Deviation 52.3 H (36.4-46.3) fL RDW Coeff of Stephie 14.3 (11.5-14.5) % Plt Count 207 (130-400) K/uL MPV 8.1 (7.4-10.4) fL Immature Gran % (Auto) 0.3 % Neut % (Auto) 63.7 % Lymph % (Auto) 17.4 % [place] % (Auto) 16.2 % Eos % (Auto) 2.4 % Baso % (Auto) 0.0 % Neut # (Auto) 4.32 (1.4-6.5) K/uL Lymph # (Auto) 1.18 L (1.2-3.4) K/uL [place] # (Auto) 1.10 H (0.11-0.59) K/uL Eos # (Auto) 0.16 (0-0.5) K/uL Baso # (Auto) 0.00 (0-0.2) K/uL Immature Gran # (Auto) 0.02 (0.00-0.02) K/uL RBC Morphology Polychromasia 1+ Sodium (136-145) mmol/L Potassium (3.5-5.1) mmol/L Chloride (98-107) mmol/L Carbon Dioxide (21-32) mmol/L Anion Gap (3-11) BUN (7-18) mg/dl Creatinine (0.6-1.2) mg/dl Est Cr Clr Drug Dosing ml/min Est GFR ( Amer) ml/min Est GFR (Non-Af Amer) ml/min BUN/Creatinine Ratio (10-20) Glucose (70-99) mg/dl Calcium (8.5-10.1) mg/dl Magnesium (1.8-2.4) mg/dl Hepatitis C Ab Screen Neg (Neg) Blood Type A Positive Antibody Screen NEGATIVE Crossmatch See Detail PG Care Time/CCT Total # of Minutes Spent Total Time Spent with Patient: Total time spent is greater than 50% in coordination of care (as documented) at patient's floor/unit and/or counseling patient: Coding Level of Care Code 35715 Subseq Hosp Care Lvl 2 Diagnoses Acute blood loss anemia D62 Intramuscular hematoma T14.8XXA Status post total hip replacement, left Z96.642 Left leg pain M79.605 Depression F32.9 Hypertension I10 Restless legs syndrome G25.81 GERD (gastroesophageal reflux disease) K21.9 Stress incontinence in female N39.3 Nontoxic multinodular goiter E04.2 Hypercholesterolemia E78.00 History of DVT (deep vein thrombosis) Z86.718
[2021-06-11] MEDS: rOPINIRole HCL 1 MG TABLET PO SCH ×2 (14:56→21:17)
[2021-06-11] MEDS: DOCUSATE SODIUM/SENNA 50/8.6MG TAB PO SCH (14:56)
--- NOTE | 2021-06-11 16:49 | Electrocardiogram Report ---
Test Reason : Blood Pressure : / mmHG Vent. Rate : 062 BPM Atrial Rate : 062 BPM P-R Int : 140 ms QRS Dur : 094 ms QT Int : 456 ms P-R-T Axes : 016 009 008 degrees QTc Int : 462 ms Normal sinus rhythm Nonspecific ST abnormality Abnormal ECG When compared with ECG of 12-MAY-2021 09:53, Questionable change in QRS axis Nonspecific T wave abnormality now evident in Inferior leads Confirmed by Sravan Tong ([id number] on 06/11/2021 4:49:20 PM Referred By: REFERRED SELF Confirmed By:Sravan Tong
[2021-06-11] MEDS: ASPIRIN 81 MG ECTAB PO SCH (21:17)
[2021-06-11] MEDS: ATORVASTATIN 20 MG TAB PO SCH (21:17)
[2021-06-12] MEDS: oxyCODONE HCL IR 5 MG TAB (IMMEDIATE RELEASE) PO PRN ×2 (03:09→07:58)
[2021-06-12] MEDS: ACETAMINOPHEN 500 MG TAB PO SCH (05:51)
[2021-06-12 06:22] LABS: Basophils # (auto) 0.01 K/uL (0-0.2); Basophils % (auto) 0.1 %; Eosinophils # (auto) 0.16 K/uL (0-0.5); Eosinophils % (auto) 2.4 %; Hematocrit (blood only) 23.7 % (37-47); Hemoglobin 7.9 g/dL (12.0-16.0); Immature Granulocytes # (auto) 0.04 K/uL (0.00-0.02); Immature Granulocytes % (auto) 0.6 %; Lymphocytes # (auto) 1.28 K/uL (1.2-3.4); Lymphocytes % (auto) 18.9 %; Mean Corpuscular Hemoglobin 31.5 pg (25-34); Mean Corpuscular Hgb Conc 33.3 g/dL (32-36); Mean Corpuscular Volume 94.4 fL (80-100); Mean Platelet Volume 8.3 fL (7.4-10.4); Monocytes # (auto) 1.08 K/uL (0.11-0.59); Monocytes % (auto) 15.9 %; Neutrophils # (auto) 4.21 K/uL (1.4-6.5); Neutrophils % (auto) 62.1 %; Platelet Count 237 K/uL (130-400); RDW Coefficient of Variation 15.6 % (11.5-14.5); RDW Standard Deviation 53.1 fL (36.4-46.3); Red Blood Count 2.51 M/uL (4.2-5.4); White Blood Count 6.78 K/uL (4.8-10.8)
[2021-06-12 06:46] LABS: RBC Morphology Unremarkable
[2021-06-12 06:56] LABS: BUN Creatinine Ratio 19.6 (10-20); Calcium 8.4 mg/dl (8.5-10.1); Creatinine Clr Calc Pharmacy 75.9 ml/min; Est GFR (African American) 98.9 ml/min; Est GFR (Non-African American) 85.4 ml/min; Potassium 4.4 mmol/L (3.5-5.1)
[2021-06-12] MEDS: DOCUSATE SODIUM/SENNA 50/8.6MG TAB PO SCH (07:48)
[2021-06-12] MEDS: PANTOprazole 40 MG TAB PO SCH (07:49)
[2021-06-12] MEDS: ASPIRIN 81 MG ECTAB PO SCH (07:49)
[2021-06-12] MEDS: CITALOPRAM 20 MG TAB PO SCH (07:49)
--- NOTE | 2021-06-12 10:16 | Discharge Summary ---
Date of Service June 12, 2021 Admission HPI Per Admitting Provider 76 YOF with past medical history of: OA, goider, depression, HLD, HTN, RLS, DVT of the leg, GERD. Patient is s/p left total hip arthroplasty on under spinal anesthesia and IV sedation. She was discharged on the after PT/OT evaluations. She was to continue FLORENTINO stocking and was discharged on Xeralto for her DVT prophylaxis, as she had a previous DVT in the left leg in July 05. She took her last dose of this, this morning. She returned today for increase pain in her left leg that goes from her left foot up to her thigh. Patient was evaluated at the bedside by Orthopaedics earlier today and recommended CT scan to r/o fracture and lower extremity ultrasound to rule out DVT. The patient had her CT scan performed, which was noted for extensive intramuscular hematoma. I did speak with Dr. Coley regarding these findings, and feels this is expected post operative. Ultrasound of the leg reveals no DVT. Patient will be admitted for pain control, PT/OT and Orthopaedics continue to follow post-operative care, follow hemodynamics and laboratory information. Patient reports that she has been doing very well with her physical therapy and walking quite frequently around the house. She had physical therapy yesterday and did not notice any change or pain. She had increase in pain today going down the middle of her leg to her foot as well as some lightheadedness and mild nausea. Patient has received her COVID vaccines and her COVID test today is NEGATIVE. Principal Diagnosis Acute blood loss anemia, Left thigh hematoma Discharge Exam Constitutional WD/WN, vitals as above Eyes + anicteric sclerae Neck trachea midline, no thyromegaly Respiratory normal respiratory effort, lungs clear to auscultation Cardiovascular RRR, no murmur, no edema Chest (Breasts) Chest: normal inspection of chest Gastrointestinal (Abdomen) normal bowel sounds, soft, nontender, no hepatosplenomegaly Musculoskeletal Extremities: + extremities abnormal to inspection (Left hip and posterior knee with ecchymosis and mild edema), no cyanosis and no clubbing Skin no rashes, warm and dry Neurologic moves all extremities and awake; no focal motor deficits Psychiatric A+Ox3, euthymic affect Lymphatic no lymphedema Discharge Data Allergies Allergy/AdvReac Type Severity Reaction Status Date / Time Penicillins Allergy Intermediate Itchiness, Verified 06/09/21 17:00 lips tingling Sulfa (Sulfonamide Allergy Intermediate Itchiness, Verified 06/09/21 17:00 Antibiotics) lips tingling Consultations 06/09/21 17:17 ED Decision to Admit Stat 06/09/21 22:17 Consult Orthopedic Surgery Routine Ordered Studies 06/09/21 17:17 CT hip LT wo con Stat 06/09/21 17:47 US venous doppler LE LT Stat Hip/Pelvis X-Ray 06/09/21 13:04 XR hip LT 2V w pelvis CLINICAL HISTORY: pain, s/p L hip replacement COMPARISON: Pelvis and left hip radiographs June 03, 2021. FINDINGS: Alignment of the bilateral total hip arthroplasties is anatomic. No periprosthetic fracture or lucency adjacent to left hip arthroplasty is noted. Degenerative changes at the symphysis pubis are incidentally noted. IMPRESSION: Expected findings following total left hip arthroplasty. No periprosthetic fracture or lucency. ACT 112: Negative or not required by law. Electronically signed by: Narendra Moreno M.D. 06/09/2021 1:46 PM Chest X-Ray 06/09/21 14:07 XR chest 1V portable HISTORY: 76 years-old Female Chest Pain acute atypical chest pain COMPARISON: Chest radiograph 10/02/2018 TECHNIQUE: Supine AP view of the chest FINDINGS: Cardiomediastinal and hilar silhouettes are within normal limits. There is no pneumothorax, pleural effusion, airspace consolidation or overt pulmonary edema. Eventration of the right hemidiaphragm. Spondylitic spurring of the spine. IMPRESSION: No acute process. ACT 112: Negative or not required by law. The above report was generated using voice recognition software. It may contain grammatical, syntax or spelling errors. Electronically signed by: Vlad Herrera M.D. 06/09/2021 2:[address] 06/09/21 17:17 CT hip LT wo con HISTORY: 76 years-old Female pain, s/p DOUGLAS acute left hip pain status post total joint arthroplasty COMPARISON: Pelvis and hip radiographs of same day TECHNIQUE: Multiple axial CT images of the left hip were obtained without the use of IV contrast. A dose lowering technique was used consistent with the principals of WILLIE. FINDINGS: Moderate atherosclerotic plaque. Coarse calcifications are noted within the region of the left uterine cornua. Colonic diverticulosis. No bowel obstruction or bowel wall thickening. Streak artifact from bilateral hip total joint arthroplasties limits the study. Moderate subcutaneous edema with lateral skin thickening of the left thigh and hip. Mild cutaneous hemorrhage along the surgical tract of the left hip. E xtensive intramuscular hematoma extends from the superior aspect of the left gluteus medius distribution and extends into the upper thigh into the hamstring and proximal quadriceps measuring over 28 cm in length extending distal to the [id number] and measures up to approximately 9 cm in transverse dimension. Hemorrhage extends into the piriformis muscle. Mild dependent fluid/hemorrhage within the pelvis. Severe facet arthrosis of the lower lumbar spine. Demineralized appearance of the bones. No acute fracture. IMPRESSION: 1. Status post left hip arthroplasty. No acute fracture or malalignment. 2. Large amount of intramuscular hematoma within the left hip and thigh involves the gluteal, quadriceps and hamstring musculature measuring over 20 cm in length. ACT 112: Negative or not required by law. The above report was generated using voice recognition software. It may contain grammatical, syntax or spelling errors. Electronically signed by: Vlad Herrera M.D. 06/09/2021 6:41 PM Venous Doppler Study 06/09/21 17:47 US venous doppler LE LT HISTORY: 76 years-old Female pain, s/p DOUGLAS acute left lower extremity pain status post arthroplasty COMPARISON: CT left hip of same day TECHNIQUE: Multiple real-time sonographic images of the left lower extremity deep venous structures were obtained assessing grayscale appearance, color and spectral flow FINDINGS: Limited exam secondary to patient pain throughout the study. Normal flow, compressibility, phasicity and augmentation. Subcutaneous edema. IMPRESSION: No sonographic evidence of deep venous thrombosis. ACT 112: Negative or not required by law. The above report was generated using voice recognition software. It may contain grammatical, syntax or spelling errors. Electronically signed by: Vlad Herrera M.D. 06/09/2021 7:08 PM Hospital Course (1) Acute blood loss anemia: Presented with left thigh hematoma 6 days after discharge from a left hip total arthroplasty Hemoglobin initially 11.2 and then dropped to 7.0 after admission With associated lightheadedness, nausea, and hypotension Responded to crystalloid boluses initially Transfused 1 unit PRBCs on 06/10 Now hgb up to 7.9 and stable fro previous, do not suspect further bleeding Feeling very well, not lightheaded, HD stable, no CP/SOB, is ambulating has pain in left thigh with sitting restarted ASA 81mg po bid for DVT prophylaxis rather than Xarelto -start FeSO4 325mg po bid on discharge Follow CBC in one week as otupt or sooner prn symptoms as discussed with patient at time of discharge (2) Intramuscular hematoma: Postoperative intramuscular hematoma, greater than expected, a complication of care As above, large amount hematoma intramuscularly seen on CT of the hip Secondary to recent surgery and being on Xarelto dcd Xarelto and home diclofenac starting ASA 81mg bid for DVT prophylaxis (3) Status post total hip replacement, left: As per HPI- imaging as above - orthopaedics consulted, appreciate assistance - Pt/OT-rec home with home health - VTE prophy TEDS, aspirin -added docusate for bowels continue pain control with oxycodone remove Snell and is voiding (4) Left leg pain: As per HPI - continue Tylenol, oxycodone 5 mg - Postoperative hematoma/hemorrhage - No fracture CT scan as above LLE ultrasound negative for DVT (5) Depression: Continue Citalopram (6) Hypertension: held antihypertensives at this time due to hypotension as above from acute blood loss anemia but BPs improved - restart home BP meds on discharge (7) Restless legs syndrome: Continue ropinirole 1 mg at night and 1 mg in the afternoon dose (8) GERD (gastroesophageal reflux disease): Continue pantoprazole 40mg daily (9) Stress incontinence in female: remove Snell (10) Nontoxic multinodular goiter: TSH 2.7- imaged in 2014 (11) Hypercholesterolemia: Continue Atorvastatin (12) History of DVT (deep vein thrombosis): Holding Xarelto as above due to acute blood loss anemia and hematoma was not on chronic AC starting ASA as above now Disposition-dc to home [facility] and home today Total Time Total Time Spent Total Time Spent (In Minutes): 35 min Discharge Plan Discharge Items Patient Disposition: Home - Home Health Services Reason For Visit: PAIN Discharge Diagnosis: Acute blood loss anemia, Left lower extremity hematoma Condition on Discharge: Good Activity: Resume your previous activity Non-emergency contact: Primary Care Provider and Surgeon Call non-emergency contact if: you have any medication questions, your symptoms worsen, your pain is not controlled, your pain is worsening, your pain is unusual for you, you have a fever, your wound has increased redness, your wound has increased drainage and your wound pain has increased Follow-up/Referrals: Heidi Delacruz MD [Primary Care Provider] - (Please call for a follow up appointment within 1-2 weeks.) Diet: Heart Healthy Addtl Attending Provider Instructions: You were admitted with a hematoma or bleeding into the muscles of your thigh. Your Xarelto was STOPPED and you were given a blood transfusion. The bleeding has stopped and you were started on an aspirin 81mg twice daily for DVT prevention instead of the Xarelto. Please remain on this and follow up with your Orthopedic Surgeon as scheduled. Follow up with your PCP within 1 week and have your blood count repeated at that time,. Continue taking iron pills twice a day and a stool softener along with them to build your blood count back up. Pending Studies at Discharge: No Stand-Alone Forms: My [facility] Medications and DC Order Prescriptions: New ferrous sulfate 325 mg (65 mg iron) tablet 325 mg PO BID Qty: 60 RF: 0 docusate sodium 100 mg capsule 100 mg PO BID Qty: 60 RF: 0 Continued verapamil 180 mg tablet extended release 180 mg PO BID RF: 0 cranberry 500 mg Capsule 500 mg PO QAM RF: 0 ropinirole 1 mg Tablet 1 mg PO HS RF: 0 ropinirole 1 mg Tablet 1 mg PO DAILY@1500 RF: 0 pantoprazole 40 mg Tablet,Delayed Release (Dr/Ec) 40 mg PO QAM RF: 0 losartan 50 mg Tablet 50 mg PO HS RF: 0 atorvastatin 20 mg Tablet 20 mg PO HS RF: 0 citalopram 20 mg Tablet 20 mg PO QAM RF: 0 aspirin 81 mg Tablet,Delayed Release (Dr/Ec) 81 mg PO BID 30 Days Qty: 60 RF: 0 oxycodone 5 mg Tablet 5 - 10 mg PO Q4H PRN (Reason: pain) Qty: 24 RF: 0 acetaminophen [Tylenol Extra Strength] 500 mg tablet 1,000 mg PO Q8 RF: 0 Premarin 0.625 mg/gram cream 0.625 mg PV DIRECTED RF: 0 clobetasol 0.05 % ointment 1 applic TOP [id number] RF: 0 Discontinued diclofenac sodium 75 mg tablet,delayed release (DR/EC) 75 mg PO BID 30 Days Qty: 60 RF: 0 Discharge Orders: Discharge Order (Routine); Ordered 06/12/21 Ordered By: Rosalee Keene Admission Data Admit Date/Time: 06/09/21 19:52 Attending Provider: Rosalee Keene Admit Provider: Paul Sparks Primary Care Provider: Heidi Delacruz Other Providers: Paul Sparks ; Isaiah Hollingsworth ; [facility] Coding Level of Care Code D/C DAY MANAGEMENT >30 MINS Diagnoses Acute blood loss anemia D62 Intramuscular hematoma T14.8XXA Status post total hip replacement, left Z96.642 Left leg pain M79.605 Depression F32.9 Hypertension I10 Restless legs syndrome G25.81 GERD (gastroesophageal reflux disease) K21.9 Stress incontinence in female N39.3 Nontoxic multinodular goiter E04.2 Hypercholesterolemia E78.00 History of DVT (deep vein thrombosis) Z86.718
== END 2021-06-12 14:00 | disposition home health service (06) ==
LOC: ED 12:17 → SUATTDRO 19:52 → 3E 19:52 → INTOOBSV 19:52 → 3E 21:47